=== PATIENT | female | born 1940 | race Caucasian/White ===

== ENCOUNTER → 2016-11-17 | Outpatient (CLI) | payer MEDICARE, OTHER ==
[~2016-11-17] MED LIST: FURO20TA2 PO; GARL1CAP PO; GLIP5TAB15 PO; KRIL1CAP4 PO; LISI-542 PO; OCUVTAB PO; OSTETAB3 PO; SIMV20TA2 PO; VITA20008 PO
--- NOTE | 2016-11-17 14:16 | REPMRS ---
Patient History The patient states she has not had a clinical breast exam in over a year. Patient is postmenopausal. Family history of breast cancer in paternal aunt at age 50 or over and colorectal cancer in brother at age 50 or over. Benign excisional biopsy of the right breast, 2001. Digital Woman Screen Mammo: November 17, 2016 - Exam #: [id number] Bilateral CC and MLO view(s) were taken. Technologist: Shanice Garza, Technologist Prior study comparison: September 17, 2014, digital woman screen mammo performed at [facility]. September 10, 2013, digital woman screen mammo performed at [facility]. May 30, 2012, digital woman screen mammo performed at [facility]. FINDINGS: There are scattered fibroglandular densities. There has been no change in the appearance of the mammogram from the prior studies. There is a mild amount of scattered fibroglandular density which is fairly symmetric. There is no interval development of dominant mass, architectural distortion, or clustered microcalcification suggestive of malignancy. ASSESSMENT: BI-RADS/ACR category 1 mammogram. Negative. Recommendation Routine screening mammogram in 1 year (for women over age 40). This mammogram was interpreted with the aid of an FDA-approved computer-aided dectection system. Electronically Signed By: Sahil Michelle MD 11/17/16 [id number]
== END | disposition home or self-care (01) ==
LOC: M WHC 12:47
PROVIDERS: ATTEND Internal Medicine
DX: Z12.31 Encounter for screening mammogram for malignant neoplasm of breast (principal); Z78.0 Asymptomatic menopausal state; Z80.3 Family history of malignant neoplasm of breast

== ENCOUNTER → 2019-01-21 | Outpatient (CLI) | payer MEDICARE, OTHER ==
[~2019-01-21] MED LIST changes: +GARL10004 PO; -GARL1CAP PO; -GLIP5TAB15 PO; +GLIP5TAB20 PO
--- NOTE | 2019-01-21 16:14 | REPMRS ---
Patient History The patient states she has not had a clinical breast exam in over a year. Family history of breast cancer at age 50 or over in paternal aunt, colorectal cancer at age 50 or over in brother. Benign excisional biopsy of the right breast, 2001. Digital Woman Screen Mammo: January 21, 2019 - Exam #: [id number] Bilateral CC and MLO view(s) were taken. Technologist: Alisha Mohan, Technologist Prior study comparison: November 17, 2016, digital woman screen mammo performed at [facility]. September 17, 2014, digital woman screen mammo performed at [facility]. September 10, 2013, digital woman screen mammo performed at [facility]. FINDINGS: There are scattered fibroglandular densities. There has been no change in the appearance of the mammogram from the prior studies. There is a mild amount of scattered fibroglandular density which is fairly symmetric. There is no interval development of dominant mass, architectural distortion, or clustered microcalcification suggestive of malignancy. 3-D tomosynthesis shows no additional findings. Assessment: BI-RADS/ACR category 1 mammogram. Negative Mammogram. Recommendation Routine screening mammogram of both breasts in 1 year (for women over age 40). This patient's Lifetime Breast Cancer RIsk is estimated at 3.5 %. This mammogram was interpreted with the aid of an FDA-approved computer-aided dectection system. Electronically Signed By: Sahil Michelle MD 01/21/19 2165
== END ==
LOC: M WHC 12:47
PROVIDERS: ATTEND Internal Medicine
DX: Z12.31 Encounter for screening mammogram for malignant neoplasm of breast (principal)

== ENCOUNTER → 2019-06-19 | Outpatient (CLI) | payer MEDICARE, OTHER ==
--- NOTE | 2019-06-19 11:57 | REP ---
Clinical: Acute bronchitis . Comparison: 08/03/2014 . Technique: PA and lateral. Findings: The mediastinum and cardiac silhouette are normal. The lung ralph are clear and without acute consolidation, effusion, or pneumothorax. The skeletal structures are intact and normal. Impression: 1. No acute cardiopulmonary process. Electronically Signed by Eduard Cedeno MD 06/19/2019 11:49 A
== END ==
LOC: M WUC 11:37
PROVIDERS: ATTEND Physician Assistant
DX: J20.9 Acute bronchitis, unspecified (principal); R50.9 Fever, unspecified

== ENCOUNTER 2021-02-02 18:11 | Emergency (ER) | payer MEDICARE, OTHER ==
[~2021-02-02 18:11] MED LIST changes: -LISI-542 PO; +LISI-898 PO; -SIMV20TA2 PO; +SIMV20TA22 PO
[2021-02-02] MEDS ORDERED: SITA50TAB (20:06)
[2021-02-02] MEDS ORDERED: OCUVCAP2 PO (20:06)
[2021-02-02] MEDS ORDERED: SEMA3TAB PO (20:06)
[2021-02-02] MEDS ORDERED: MORPHINE 4 MG/ML 1ML VIAL/SYRINGE (J2270) IV ONE (20:25)
--- NOTE | 2021-02-02 21:06 | REPVR ---
PROCEDURE INFORMATION: Exam: CT Thoracic Spine Without Contrast Exam date and time: 02/02/2021 8:07 PM Age: 80 years old Clinical indication: Pain in thoracic spine TECHNIQUE: Imaging protocol: Computed tomography images of the thoracic spine without contrast. Radiation optimization: All CT scans at this facility use at least one of these dose optimization techniques: automated exposure control; mA and/or kV adjustment per patient size (includes targeted exams where dose is matched to clinical indication); or iterative reconstruction. COMPARISON: No relevant prior studies available. FINDINGS: Vertebrae: There is a compression fracture of the L1 vertebral body with compression of the L1 superior endplate. No thoracic vertebral body compression fracture. Normal alignment. There are nondisplaced fractures of the T5, T6, and T7 spinous processes. Discs/Spinal canal/Neural foramina: Mild discogenic and endplate degenerative changes. No spinal stenosis. Soft tissues: Unremarkable. IMPRESSION: 1. L1 compression fracture. See lumbar spine CT report. 2. Nondisplaced fractures of the T5, T6, and T7 spinous processes. 3. No thoracic spine compression fracture or malalignment. Electronically signed by: Mohan Gonzalez On 02/02/2021 21:06:24 PM
--- NOTE | 2021-02-02 21:11 | REPVR ---
PROCEDURE INFORMATION: Exam: CT Lumbar Spine Without Contrast Exam date and time: 02/02/2021 8:07 PM Age: 80 years old Clinical indication: Low back pain TECHNIQUE: Imaging protocol: Computed tomography images of the lumbar spine without contrast. Radiation optimization: All CT scans at this facility use at least one of these dose optimization techniques: automated exposure control; mA and/or kV adjustment per patient size (includes targeted exams where dose is matched to clinical indication); or iterative reconstruction. COMPARISON: No relevant prior studies available. FINDINGS: Vertebrae: There is a compression fracture of the L1 superior endplate with approximately 7 mm of vertebral body height loss. No other compression fracture. Grade 1 anterolisthesis at L3-L4. Otherwise normal alignment. No destructive bone lesions. Discs/Spinal canal/Neural foramina: Small posterior disc bulges at L2-L3 and L3-L4. No significant spinal stenosis. Advanced multilevel facet DJD. Soft tissues: Unremarkable. IMPRESSION: 1. L1 superior endplate compression fracture. 2. No other acute fracture. 3. Degenerate spondylosis as above. Electronically signed by: Mohan Gonzalez On 02/02/2021 21:11:29 PM
[2021-02-02] MEDS ORDERED: PERC5TAB12 PO (21:23)
[2021-02-02] MEDS ORDERED: OXYCODONE/APAP 5MG/325MG(BULK FOR ED) 1 TABLET PO ONE (21:25)
[2021-02-02 22:00] VITALS: BP 153/74
--- NOTE | 2021-02-05 10:13 | ED PDOC ---
Post-Departure Follow-Up radiology report faxed to Alisha Virk MD Feb 05, 2021 10:13
== END 2021-02-02 22:10 | disposition home or self-care (01) ==
LOC: M ED 18:11 → EDBD 18:11 → M ED 22:10
DX: S32.010A Wedge compression fracture of first lumbar vertebra, initial encounter for closed fracture (principal); S22.059A Unspecified fracture of T5-T6 vertebra, initial encounter for closed fracture; S22.069A Unspecified fracture of T7-T8 vertebra, initial encounter for closed fracture; W18.39XA Other fall on same level, initial encounter; Y92.018 Other place in single-family (private) house as the place of occurrence of the external cause; E11.9 Type 2 diabetes mellitus without complications; I12.9 Hypertensive chronic kidney disease with stage 1 through stage 4 chronic kidney disease, or unspecified chronic kidney disease; N18.9 Chronic kidney disease, unspecified; Z79.899 Other long term (current) drug therapy; Z79.84 Long term (current) use of oral hypoglycemic drugs
CPT/HCPCS: 72128; 72131; 96374; 99284; J2270

== ENCOUNTER → 2021-07-06 | Outpatient (CLI) | payer MEDICARE, OTHER ==
[~2021-07-06] MED LIST changes: +OCUVCAP2 PO; +PERC5TAB12 PO; +SEMA3TAB PO; +SITA50TAB
--- NOTE | 2021-07-06 15:13 | REPMRS ---
Patient History The patient states she has not had a clinical breast exam in over a year. Family history of breast cancer at age 50 or over in paternal aunt, colorectal cancer at age 50 or over in brother. Benign excisional biopsy of the right breast, 2001. No breast complaints today Patient signed the MRS sheet 1st covid vaccine 11/30/20-left arm-Moderna 2nd covid vaccine 12/28/20-left arm Priors on PACS Patient Identification Verified Digital Woman Screen Mammo: July 06, 2021 - Exam #: [id number] Bilateral CC and MLO view(s) were taken. Technologist: Francoise Bhatti, Technologist Prior study comparison: January 21, 2019, bilateral digital woman screen mammo performed at [facility]. November 17, 2016, digital woman screen mammo performed at [facility]. FINDINGS: There are scattered fibroglandular densities. Screening. Digital screening (2D) mammography was performed bilaterally in the CC and MLO projections. Additionally, breast tomosynthesis (3D mammography) was performed bilaterally in the CC and MLO projections. Todays exam was compared to the prior exam/exams. By history, the patient has no complaints of a palpable breast abnormality or other significant breast complaints. The Volpara volumetric breast density category is B, there are scattered areas of fibroglandular densities. Thereis a radio-opaque disk marking the location of a mole on the right breast. The breasts are unchanged in size and shape. There are no patricia-soft tissue densities or spiculated masses. There is no internal architectural distortion. There are no suspicious patricia-calcific clusters. Skin thickening or nipple retraction is not present. IMPRESSION: BI-RADS Category 2- Benign Findings. There is no evidence of malignant alteration of the breasts. Followup examination recommended in one year. This mammogram was read with the assistance of [employer],an FDA approved computer aided detection system for mammography. Negative x-ray reports should not delay surgical consultation if a dominant or clinically suspicious mass is present. The lifetime Tyrer-Cuzick score is 2.8% Not all breast cancers can be identified by mammography. Therefore, we recommend that you continue to perform regular breast self-examination and physical examination and then promptly contact your physician of any concerns or changes. Adenosis and dense breasts may obscure an underlying neoplasm. No significant changes when compared with prior studies. Assessment: BI-RADS/ACR category 2 mammogram. Benign Findings. Recommendation Routine screening mammogram of both breasts in 1 year. Electronically Signed By: Armand Montero MD 07/06/21 7011
== END ==
LOC: M WHC 14:09
PROVIDERS: ATTEND Internal Medicine
DX: Z12.31 Encounter for screening mammogram for malignant neoplasm of breast (principal)

== ENCOUNTER → 2021-08-18 | Outpatient (CLI) | payer MEDICARE, OTHER ==
[~2021-08-18] MED LIST changes: +COQ-100C5 PO; +RA K500C PO
== END ==
LOC: M LABSMTC 10:21
PROVIDERS: ATTEND Anesthesiology
DX: Z01.818 Encounter for other preprocedural examination (principal); Z11.52 Encounter for screening for COVID-19

== ENCOUNTER 2021-08-23 06:38 | Day surgery (SDC) | payer MEDICARE, OTHER ==
[~2021-08-23] VITALS: Ht 154.9 cm; Wt 85.7 kg
[~2021-08-23 06:38] MED LIST changes: +NS 1,000 ML IV ONE
--- OUTSIDE RECORDS SUMMARY | 2021-08-23 06:47 | CCD | Continuity of Care Document ---
Author Author Cindy ColetowThi Leonard Organization Unknown Address [address] [place] [address] Phone [phone] Problems Active Problems Provider Date Mixed hyperlipidemia Shaw Ortiz M.D. Onset: 08/01/20 13 Type 2 diabetes mellitus Shaw Ortiz M.D. Onset: 07/15 Benign essential hypertension Shaw Ortiz M.D. Onset: 08/01/2013 Essential hypertension Shaw Ortiz M.D. Onset: 2014 Heart murmur Alisha Vaughn, [facility]- Onset: 01/26/1951 Social History Type Date Description Comments Sex Unknown ETOH Use Denies alcohol use Recreational Drug Use Denies Drug Use Tobacco Use Start: Unknown Patient has never smoked Allergies and adverse reactions Active Allergies Criticality Reaction | Severity Comments Date No Known Drug Allergy Unable to assess criticality 08/01/2013 Medications Active Medications SIG Qnty Indications Ordering Provide r Date Rybelsus 3mg Tablets one p o daily 90tabs Shaw Ortiz M.D. 04/13/2021 Percocet 5-325mg Tablets 1 by mouth every 8 hours as needed for back pain, [id number] 90tabs Shaw Fagan M.D. 02/11/2021 Flonase Allergy Relief 50mcg/Act Suspension 2 sprays each narea every day 15.800ml Ta Ortiz M.D. 04/09/2020 Januvia 50mg Tablets Take One Tablet By Mouth Every Day 90tabs Shaw Ortiz M.D. 12/26/19 20 Simvastatin 40mg Tablets Take One Tablet By Mouth Every Day 90tabs Shaw Ortiz M.D. 02/18 Glipizide ER 5mg Tablets ER 24HR take one tablet by mouth 3 times a day 270tabs Shaw Ortiz M.D. 06/06/2017 Lisinopril 5mg Tablets take one tablet by mouth twice a day 180tabs Shaw Ortiz M.D. 2012 Osteo Bi-Flex Advanced With Joint Shield Tablets as directed Unknown Krill Oil Capsules 1 po qd Unknown Lasix 20mg Tablets 1 b y mouth every day 90tabs Shaw Ortiz M.D. Garlic 500mg Capsules otc 2 tabs by mouth every day Unknown Magnesium 500mg Tablets 1 by mouth every day OTC Unknown Medications Administered in Office Medication SIG Qnty Indications Ordering Provider Date Injection (SC)/(Im) Injection Shaw Ortiz M.D. 08/01/2013 Immunizations CPT Code Status Date Vaccine Lot # [id number] Given 07/20/2020 Influenza Virus Vaccine, Quadrivalent, Slit Virus, Im Use 3Y & Up [id number] 06870 Given 09/08/2019 Influenza Virus Vaccine, Quadrivalent, Slit Virus, Im Use 3Y & Up [id number] 29471 Given 08/13/2018 Influenza Virus Vaccine, Quadrivalent, Slit Virus, Im Use 3Y & Up [id number] 83508 Given 06/19/2017 Influenza Virus Vaccine, Quadrivalent, Slit Virus, Im Use 3Y & Up [id number] 07440 Given 03/13/2017 Pneumococcal Immunization [id number] 29193 Given 08/15/2016 Influenza Virus Vaccine, Quadrivalent, Slit Virus, Im Use 3Y & Up 43397 Given 08/10/2015 Influenza Vaccin e (Fluzone) 3Yrs Of Age Or Older Medicare Plans [id number] 77168 Given 08/10/2015 Prevnar Pneumoco ccal Conjugate Vaccine For Children Under 5Years 61655 Given 08/01/2013 Influenza Vaccin e (Fluzone) 3Yrs Of Age Or Older Medicare Plans 55495 Given 08/01/2013 Influenza Virus Vac. Split Virus Individuals 3 Years And Above [id number] Vital Signs Date Vital Result Comment 04/13/2021 2:12pm BP Systolic 124 mmHg BP Diastolic 80 mmHg Body Temperature 98.0 F Heart Rate 70 /min Respiratory Rate 16 /min Height 62 inches 5'2" Weight 189.00 lb Maynard Body Weight 110 lb BMI (Body Mass Index) 34.6 kg/m2 O2 % BldC Oximetry 96 % 02/25/2021 1:51pm BP Systolic 122 mmHg BP Diastolic 82 mmHg Body Temperature 97.9 F Heart Rate 64 /min Respiratory Rate 12 /min Height 62 inches 5'2" Weight 187.00 lb Maynard Body Weight 110 lb BMI (Body Mass Index) 34.2 kg/m2 O2 % BldC Oximetry 93 % Results Test Acquired Date Facility Test Result H/L Range Note Laboratory test finding 07/25/20[place] [facility] [place] A1c 6.6 % High 4.50-6.20 CBC 07/25/2021 [facility] WBC 6.4 10E3/uL 4.1 - 10.9 1 RBC 3.61 10E6/uL Low 4.20 - 6.30 HGB 12.7 g/dL 12.0 - 18.0 HCT 37.7 % 37.0 - 51.0 MCV 104.4 fL High 80.0 - 97.0 MCH 35.2 pg High 26.0 - 32.0 MCHC 33.7 g/dL 31.0 - 36.0 PLT 209 10E3/uL 140 - 440 RDW-CV 13.0 % 11.5 - 14.5 Lym% 26.3 % 10.0 - 58.5 Neut% 59.5 % 37.0 - 92.0 MXD% 14.2 % 0.1 - 24.0 Lym# 1.7 10E3/uL 0.6 - 4.1 Neut# 3.8 % 2.0 - 7.8 MXD# 0.9 10E3/uL 0.0 - 1.8 MPV 8.3 fL Low 9.0 - 13.0 CMP 07/25/2021 [facility] Glu 173 mg/dL High 70 - 110 BUN 29 mg/dL High 8 - 23 Creat 1.3 mg/dL High 0.5 - 1.0 BUN/Creatinine Ratio 22.7 Calc Na 139 mmol/L 136 - 145 K 4.5 mmol/L 3.5 - 5.1 CL 103.8 mmol/L 98.0 - 107.0 Co2 21.4 mmol/L Low 22.0 - 29.0 CA 9.8 mg/dL 8.6 - 10.2 TP 6.2 g/dL Low 6.6 - 8.7 Alb 4.0 g/dL 3.4 - 4.8 A/G Ratio 1.8 Calc Globulin 2.2 Calc Alp 68.1 U/L 35 - 129 Alt (SGPT) 19 U/L 0 - 41 Ast (Sgot) 19 U/L 0 - 40 Tbili 0.20 mg/dL 0.0 - 1.2 Osmolality-Calculated 287.9 Calc Anion Gap 18 mmol/L eGFR 45 # Calc 2 eGFR Non-Afr. Bulgarian 39 # Calc 3 Lipid Panel 07/25/2021 [facility] Chol 179 mg/dL 0 - 200 Trig 174 mg/dL 40 - 200 HDL 42 mg/dL Low 45 - 65 LDL_C 103 Calc 75 - 129 Cho/HDL Ratio 4.3 Calc Laboratory test finding 04/11/2021 [facility] [place] A1c 6.5 % High 4.50-6.20 CMP 04/11/2021 [facility] Glu 122 mg/dL High 70 - 110 BUN 28 mg/dL High 8 - 23 Creat 1.3 mg/dL High 0.5 - 1.0 BUN/Creatinine Ratio 21.9 CALC Na 140 mmol/L 136 - 145 K 4.4 mmol/L 3.5 - 5.1 CL 103.9 mmol/L 98.0 - 107.0 Co2 26.6 mmol/L 22.0 - 29.0 CA 10.0 mg/dL 8.6 - 10.2 TP 6.6 g/dL 6.6 - 8.7 Alb 4.3 g/dL 3.4 - 4.8 A/G Ratio 1.9 CALC Globulin 2.3 CALC Alp 60.6 U/L 35 - 129 Alt (SGPT) 20 U/L 0 - 41 Ast (Sgot) 19 U/L 0 - 40 Tbili 0.23 mg/dL 0.0 - 1.2 Osmolality-Calculated 286.3 CALC Anion Gap 14 mmol/L eGFR 45 # Calc 4 eGFR Non-Afr. Bulgarian 39 # Calc 5 Lipid Panel 04/11/2021 [facility] Chol 160 mg/dL 0 - 200 Trig 164 mg/dL 40 - 200 HDL 41 mg/dL Low 45 - 65 LDL_C 87 Calc 75 - 129 Cho/HDL Ratio 3.9 Calc CBC 04/11/2021 [facility] WBC 6.1 10E3/uL 4.1 - 10.9 RBC 3.76 10E6/uL Low 4.20 - 6.30 HGB 13.0 g/dL 12.0 - 18.0 HCT 39.0 % 37.0 - 51.0 MCV 103.7 fL High 80.0 - 97.0 MCH 34.6 pg High 26.0 - 32.0 MCHC 33.3 g/dL 31.0 - 36.0 PLT 198 10E3/uL 140 - 440 RDW-CV 13.0 % 11.5 - 14.5 Lym% 28.3 % 10.0 - 58.5 Neut% 55.9 % 37.0 - 92.0 MXD% 15.8 % 0.1 - 24.0 Lym# 1.7 10E3/uL 0.6 - 4.1 Neut# 3.4 % 2.0 - 7.8 MXD# 1.0 10E3/uL 0.0 - 1.8 MPV 8.9 fL Low 9.0 - 13.0 1 NORMAL RANGES Age WBC RBC HGB HCT MCV PLT Adult M 4.1-10.9 4.20-6.30 12.0-18.0 37.0-51.0 80-97 140-440 Adult F 4.1-10.9 4.04-5.48 12.0-18.0 37.0-51.0 80-97 140-440 0 -1 Yr 5.0-20.0 3.9-5.9 15-18 MV: 44 MV: 91 MV: 277 2-9 Yr. 6.0-17.0 3.8-5.4 11-13 MV: 37 MV: 78 MV: 300 10 Yrs. 5.0-13.0 3.8-5.4 12-15 MV: 39 MV: 80 MV: 250 NOTE: * FOR ADULT BLACK MALES AND FEMALES, NORMAL WBC IS 2.9-7.7 K/ML * FOR ADULT BLACK MALES AND FEMALES, NORMAL RBC,HGB, AND HCT IS 5% LESS SOURCE FOR DATA: [employer] 1800 OPERATION MANUAL( AUTOMATED BLOOD COUNTS AND DIFF.) APPENDIX B-3 CHRONIC KIDNEY DISEASE STAGING PER NKF: MALE GFR INTERPRETATION: 20-49 YRS: >60 mL/min Normal 50-59 YRS: >56 mL/min Normal 60-69 YRS: >49 mL/min Normal 70-79 YRS: >42 mL/min Normal 80 and above >35 mL/min Normal FEMALE GRF INTERPRETATION: 20-39 YRS: >60 mL/min Normal 40-49 YRS: >58 mL/min Normal 50-59 YRS: >51 mL/min Normal 60-69 YRS: >45 mL/min Normal 70-79 YRS: >39 mL/min Normal 80 and above >32 mL/min NormalCLASSIFICATION CHOLESTEROL FOR ADULTS CHILDREN/ADOLESCENTS* DESIRABLE: <200 MG/DL <170 MG/DL BORDER-LINE HIGH RISK: 200-239 MG/DL 170-199 MG/DL HIGH RISK: >240 MG/DL >200 MG/DL CLASS. FOR PRIMARY LDL CHOL PREVENTION: LDL CHOL-CHILD/ADOLESCENTS* DESIRABLE: <130 MG/DL <110 MG/DL BORDERLINE-HIGH RISK: 130-159 MG/DL 110-129 MG/DL HIGH RISK: >160 MG/DL >130 MG/DL *CHILDREN AND ADOLESCENTS REPRESENTS INDIVIDUALA AGED 2-19 YEARS EXCLUSIVE. 2 CKD-EPI 3 CKD-EPI 4 CKD-EPI 5 CKD-EPI Procedures Date Code Description Status 07/06/2021 [id number] Mammogram Completed 04/13/2021 85690 Office/Outpatient Established Mo d MDM 30-39 Min Completed 02/25/2021 71922 Office/Outpatient Established Lo w MDM 20-29 Min Completed 02/11/2021 67224 Office/Outpatient Established Mo d MDM 30-39 Min Completed 01/21/2019 [id number] Mammogram Completed 11/17/2016 [id number] Mammogram Completed Medical Devices Description No Information Available Encounters Type Date Location Provider Dx Diagnosis Office Visit 04/13/2021 1:45p [place] [facility] Shaw Ortiz M. D. E11.9 Type 2 diabetes mellitus without complications E78.2 Mixed hyperlipidemia I10 Essential (primary) hyperten hanna S32.000D Wedge comprsn fx unsp lum ve rtebra, subs for fx w routn heal Office Visit 02/25/2021 1:45p [facility] Shaw Ortiz M.D. S32.000D Wedge comprsn fx unsp lum vertebra, subs for fx w routn heal Office Visit 02/11/2021 3:00p [facility] Shaw Ortiz M.D. S32.000D Wedge comprsn fx unsp lum vertebra, subs for fx w routn heal Assessments Date Code Description Provider 07/25/2021 E11.9 Type 2 diabetes mellitus without complications Shaw Ortiz M.D. 07/25/2021 E11.9 Type 2 diabetes mellitus without complications Laboratory [place] Schedule 07/25/2021 E78.2 Mixed hyperlipidemia Ta Ortiz M.D. 07/25/2021 E78.2 Mixed hyperlipidemia Laboratory [place] Schedule 07/25/2021 I10 Essential (primary) hypertension Shaw Ortiz M.D. 07/25/2021 I10 Essential (primary) hypertension Laboratory [place] Schedule 04/13/2021 E11.9 Type 2 diabetes mellitus without complications Shaw Ortiz M.D. 04/13/2021 E78.2 Mixed hyperlipidemia Ta Ortiz M.D. 04/13/2021 I10 Essential (primary) hypertension Shaw Ortiz M.D. 04/13/2021 S32.000D Wedge compression fr acture of unspecified lumbar vertebra, subsequent encounter for fracture with routine healing Shaw Ortiz M.D. 04/11/2021 E11.9 Type 2 diabetes mellitus without complications Shaw Ortiz M.D. 04/11/2021 E11.9 Type 2 diabetes mellitus without complications Laboratory [place] Schedule 04/11/2021 E78.2 Mixed hyperlipidemia Ta Ortiz M.D. 02/25/2021 S32.000D Wedge compression fr acture of unspecified lumbar vertebra, subsequent encounter for fracture with routine healing Shaw Ortiz M.D. 02/11/2021 S32.000D Wedge compression fr acture of unspecified lumbar vertebra, subsequent encounter for fracture with routine healing Shaw Ortiz M.D. Plan of Treatment Future Appointment(s):* 08/01/2021 3:00 pm - Shaw Ortiz M.D. at [place] [facility] Functional Status Description No Information Available Mental Status Description No Information Available Referrals Refer to Dr Reason for Referral Status Appt Date [facility] L1 compression fracture- eval and rx Sent [address] [place] [address] [phone]
--- OUTSIDE RECORDS SUMMARY | 2021-08-23 06:47 | CCD | Continuity of Care Document ---
Author Author Cindy ColetowThi Leonard Organization Unknown Address 3 [facility]. [address] [place] [address] Phone [phone] Problems Active Problems Provider Date Mixed hyperlipidemia Shaw Ortiz M.D. Onset: 08/01/20 13 Type 2 diabetes mellitus Shaw Ortiz M.D. Onset: 07/15 Benign essential hypertension Shaw Ortiz M.D. Onset: 08/01/2013 Essential hypertension Shaw Ortiz M.D. Onset: 2014 Heart murmur Alisha Vaughn, [facility]- Onset: 01/26/1951 Social History Type Date [...] 8 hours as needed for back pain, [id number] 90tabs Shaw Fagan M.D. 02/11/2021 Flonase Allergy [...] CPT Code Status Date Vaccine Lot # [id number] Given 07/20/2020 Influenza Virus Vaccine, Quadrivalent, Slit Virus, Im Use 3Y & Up [id number] 45588 Given 09/08/2019 Influenza Virus Vaccine, Quadrivalent, Slit Virus, Im Use 3Y & Up [id number] 73065 Given 08/13/2018 Influenza Virus Vaccine, Quadrivalent, Slit Virus, Im Use 3Y & Up [id number] 90715 Given 06/19/2017 Influenza Virus Vaccine, Quadrivalent, Slit Virus, Im Use 3Y & Up [id number] 23015 Given 03/13/2017 Pneumococcal Immunization N0 [id number] 20878 Given 08/15/2016 Influenza Virus Vaccine, Quadrivalent, Slit Virus, Im Use 3Y & Up 53877 Given 08/10/2015 Influenza Vaccin e (Fluzone) 3Yrs Of Age Or Older Medicare Plans [id number] 39769 Given 08/10/2015 Prevnar Pneumoco ccal Conjugate Vaccine For Children Under 5Years 41932 Given 08/01/2013 Influenza Vaccin e (Fluzone) 3Yrs Of Age Or Older Medicare Plans 13013 Given 08/01/2013 Influenza Virus Vac. Split Virus Individuals 3 Years And Above [id number] Vital Signs Date Vital Result Comment 04/13/2021 2:12pm BP Systolic 124 mmHg BP Diastolic 80 mmHg Body Temperature 98.0 F Heart Rate 70 /min Respiratory Rate 16 /min Height 62 inches 5'2" Weight 189.00 lb [place] Body Weight 110 lb BMI (Body Mass Index) 34.6 kg/m2 O2 % BldC Oximetry 96 % 02/25/2021 1:51pm BP Systolic 122 mmHg BP Diastolic 82 mmHg Body Temperature 97.9 F Heart Rate 64 /min Respiratory Rate 12 /min Height 62 inches 5'2" Weight 187.00 lb [place] Body Weight 110 lb BMI (Body Mass Index) 34.2 kg/m2 O2 % BldC Oximetry 93 % Results Test Acquired Date Facility Test Result H/L Range Note Laboratory test finding 07/25/2021 [facility] Hemoglobin A1c <pending> % 4.50-6.20 Laboratory test finding 04/11/2021 [facility] Hemoglobin A1c 6.5 % High 4.50-6.20 CMP 04/11/2021 [facility] Glu 122 mg/dL High 70 - 110 1 BUN 28 mg/dL High 8 - 23 [...] Gap 14 mmol/L eGFR 45 # Calc 2 eGFR Non-Afr. Monegasque 39 # Calc 3 Lipid Panel 04/11/2021 [facility] Chol 160 mg/dL [...] HCT IS 5% LESS SOURCE FOR DATA: [employer] 1800 OPERATION MANUAL( AUTOMATED BLOOD COUNTS AND [...] 2-19 YEARS EXCLUSIVE. 2 CKD-EPI 3 CKD-EPI Procedures Date Code Description Status 07/06/2021 [id number] Mammogram Completed 04/13/2021 72917 Office/Outpatient Established Mo d MDM 30-39 Min Completed 02/25/2021 64513 Office/Outpatient Established Lo w MDM 20-29 Min Completed 02/11/2021 60150 Office/Outpatient Established Mo d MDM 30-39 Min Completed 01/25/2021 51676 Office/Outpatient Established Mo d MDM 30-39 Min Completed 01/21/2019 [id number] Mammogram Completed 11/17/2016 [id number] Mammogram Completed Medical Devices Description No Information Available Encounters Type Date Location Provider Dx Diagnosis Office Visit 04/13/2021 1:45p [place] [facility] Shaw Ortiz M. D. E11.9 Type 2 diabetes mellitus without complications E78.2 Mixed hyperlipidemia I10 Essential (primary) hyperten hanna S32.000D Wedge comprsn fx unsp lum ve rtebra, subs for fx w routn heal Office Visit 02/25/2021 1:45p [place] [facility] Shaw Ortiz M.D. S32.000D Wedge comprsn fx unsp lum vertebra, subs for fx w routn heal Office Visit 02/11/2021 3:00p [place] [facility] Shaw Ortiz M.D. S32.000D Wedge comprsn fx unsp lum vertebra, subs for fx w routn heal Office Visit 01/25/2021 2:30p [place] [facility] Shaw Ortiz M. D. E11.9 Type 2 diabetes mellitus without complications E78.2 Mixed hyperlipidemia I10 Essential (primary) hyperten hanna N18.30 Chronic kidney disease, stag e 3 unspecified Assessments Date Code Description Provider 07/25/2021 E11.9 Type 2 diabetes mellitus without complications Laboratory [place] Schedule 04/13/2021 E11.9 Type 2 diabetes mellitus [...] Type 2 diabetes mellitus without complications Laboratory [place] Schedule 04/11/2021 E78.2 Mixed hyperlipidemia Ta Ortiz M.D. 02/25/2021 S32.000D Wedge compression fr acture of unspecified lumbar vertebra, subsequent encounter for fracture with routine healing Shaw Ortiz M.D. 02/11/2021 S32.000D Wedge compression fr acture of unspecified lumbar vertebra, subsequent encounter for fracture with routine healing Shaw Ortiz M.D. 01/25/2021 E11.9 Type 2 diabetes mellitus without complications Shaw Ortiz M.D. 01/25/2021 E78.2 Mixed hyperlipidemia Ta Ortiz M.D. 01/25/2021 I10 Essential (primary) hypertension Shaw Ortiz M.D. 01/25/2021 N18.30 Chronic kidney disease, stage 3 unspecified Shaw Ortiz M.D. Plan of Treatment Future Appointment(s):* 08/01/2021 3:00 pm - Shaw Ortiz M.D. at [facility] Functional Status Description No Information Available Mental Status Description No Information Available Referrals Refer to Dr Reason for Referral Status Appt Date [facility] L1 compression fracture- eval and rx Sent [address] [place] [address] [phone]
--- OUTSIDE RECORDS SUMMARY | 2021-08-23 06:47 | CCD | Continuity of Care Document ---
Author Author hTi ORTIZ M.D. Organization Unknown Address 3 [facility] 3 [place] [address] Phone [phone] Problems Active Problems Provider Date Mixed hyperlipidemia Shaw Ortiz M.D. Onset: 08/01/20 13 Type 2 diabetes mellitus Shaw Ortiz M.D. Onset: 07/15 Benign essential hypertension Shaw Ortiz M.D. Onset: 08/01/2013 Essential hypertension Shaw Ortiz M.D. Onset: 2014 Heart murmur Alisha Vaughn, [facility] Onset: 01/26/1951 Social History Type Date Description [...] 8 hours as needed for back pain, [id number] 90tabs Shaw Fagan M.D. 02/11/2021 Flonase Allergy Relief 50mcg/Act Suspension 2 sprays each narea every day 15.800ml Ta Ortiz M.D. 04/09/2020 Januvia 50mg Tablets Take One Tablet By Mouth Every Day 90tabs Shaw Ortiz M.D. 12/26/19 20 Simvastatin 40mg Tablets take one tablet by mouth every day 90tabs Shaw Ortiz M.D. 02/18 Glipizide ER [...] CPT Code Status Date Vaccine Lot # [id number] Given 08/01/2021 Influenza Virus Vaccine, Quadrivalent, Slit Virus, Im Use 3Y & Up [id number] 03798 Given 07/20/2020 Influenza Virus Vaccine, Quadrivalent, Slit Virus, Im Use 3Y & Up [id number] 32708 Given 09/08/2019 Influenza Virus Vaccine, Quadrivalent, Slit Virus, Im Use 3Y & Up [id number] 02313 Given 08/13/2018 Influenza Virus Vaccine, Quadrivalent, Slit Virus, Im Use 3Y & Up [id number] 45298 Given 06/19/2017 Influenza Virus Vaccine, Quadrivalent, Slit Virus, Im Use 3Y & Up [id number] 44584 Given 03/13/2017 Pneumococcal Immunization N0 90256 68759 Given 08/15/2016 Influenza Virus Vaccine, Quadrivalent, Slit Virus, Im Use 3Y & Up 25478 Given 08/10/2015 Influenza Vaccin e (Fluzone) 3Yrs Of Age Or Older Medicare Plans [id number] 77760 Given 08/10/2015 Prevnar Pneumoco ccal Conjugate Vaccine For Children Under 5Years 44558 Given 08/01/2013 Influenza Vaccin e (Fluzone) 3Yrs Of Age Or Older Medicare Plans 76526 Given 08/01/2013 Influenza Virus Vac. Split Virus Individuals 3 Years And Above [id number] Vital Signs Date Vital Result Comment 08/01/2021 3:01pm BP Systolic 124 mmHg BP Diastolic 68 mmHg Body Temperature 97.5 F Heart Rate 68 /min Respiratory Rate 18 /min Height 62 inches 5'2" Weight 193.00 lb [place] Body Weight 110 lb BMI (Body Mass Index) 35.3 kg/m2 O2 % BldC Oximetry 96 % 04/13/2021 2:12pm BP Systolic 124 mmHg BP Diastolic 80 mmHg Body Temperature 98.0 F Heart Rate 70 /min Respiratory Rate 16 /min Height 62 inches 5'2" Weight 189.00 lb [place] Body Weight 110 lb BMI (Body Mass Index) 34.6 kg/m2 O2 % BldC Oximetry 96 % Results Test Acquired Date Facility Test Result H/L Range Note Coronavirus 2019 Nasopharygeal 08/18/2021 [facility] ([facility]) [phone] Coronavirus 2019 Nasopharygeal ASSAY INFORMATIO <SEE N OTE> 1 Laboratory test finding 07/25/2021 [facility] Hemoglobin A1c 6.6 % High 4.50-6.20 CBC 07/25/2021 [facility] WBC 6.4 10E3/uL 4.1 - 10.9 2 RBC 3.61 10E6/uL Low 4.20 - 6.30 [...] Gap 18 mmol/L eGFR 45 # Calc 3 eGFR Non-Afr. Sudanese 39 # Calc 4 Lipid Panel 07/25/2021 [facility] Chol 179 mg/dL 0 - 200 Trig 174 mg/dL 40 - 200 HDL 42 mg/dL Low 45 - 65 LDL_C 103 Calc 75 - 129 Cho/HDL Ratio 4.3 Calc Laboratory test finding 04/11/2021 [facility] Hemoglobin A1c 6.5 [...] Gap 14 mmol/L eGFR 45 # Calc 5 eGFR Non-Afr. Sudanese 39 # Calc 6 Lipid Panel 04/11/2021 [facility] Chol 160 mg/dL [...] 8.9 fL Low 9.0 - 13.0 1 ASSAY INFORMATION: Real Time RT-PCR NOTE: The COVID-19 assay has been cleared by the U.S. Food and Drug Administration under the Emergency Use Authorization (EUA). [facility] and [facility] are designated as high complexity laboratories by the Clinical Laboratory Improvement Amendments of 1988(CLIA) and are qualified to perform this test. Not Detected 2 NORMAL RANGES Age WBC RBC HGB HCT [...] HCT IS 5% LESS SOURCE FOR DATA: [employer] 1800 OPERATION MANUAL( AUTOMATED BLOOD COUNTS AND [...] ADOLESCENTS REPRESENTS INDIVIDUALA AGED 2-19 YEARS EXCLUSIVE. 3 CKD-EPI 4 CKD-EPI 5 CKD-EPI 6 CKD-EPI Procedures Date Code Description Status 08/01/2021 29238 Office/Outpatient Established Mo d MDM 30-39 Min Completed 07/06/2021 [id number] Mammogram Completed 04/13/2021 00744 Office/Outpatient Established Mo d MDM 30-39 Min Completed 02/25/2021 50039 Office/Outpatient Established Lo w MDM 20-29 Min Completed 01/21/2019 [id number] Mammogram Completed 11/17/2016 [id number] Mammogram Completed Medical Devices Description No Information Available Encounters Type Date Location Provider Dx Diagnosis Office Visit 08/01/2021 3:00p [place] [facility] Shaw Ortiz M. D. E11.9 Type 2 diabetes mellitus without complications E78.2 Mixed hyperlipidemia I10 Essential (primary) hyperten hanna Z23 Encounter for immunization Office Visit 04/13/2021 1:45p [place] [facility] Shaw Ortiz M. D. E11.9 Type 2 diabetes mellitus without complications E78.2 Mixed hyperlipidemia I10 Essential (primary) hyperten hanna S32.000D Wedge comprsn fx unsp lum ve rtebra, subs for fx w routn heal Office Visit 02/25/2021 1:45p [place] [facility] Shaw Ortiz M.D. S32.000D Wedge comprsn fx unsp lum vertebra, subs for fx w routn heal Assessments Date Code Description Provider 08/01/2021 E11.9 Type 2 diabetes mellitus without complications Shaw Ortiz M.D. 08/01/2021 E78.2 Mixed hyperlipidemia Ta Ortiz M.D. 08/01/2021 I10 Essential (primary) hypertension Shaw Ortiz M.D. 08/01/2021 Z23 Encounter for immunization Jeremy Shaw keane M.D. 07/25/2021 E11.9 Type 2 diabetes mellitus without complications Shaw Ortiz M.D. 07/25/2021 E11.9 Type 2 diabetes mellitus without complications Laboratory [place] Schedule 07/25/2021 E78.2 Mixed hyperlipidemia Ta Ortiz M.D. 07/25/2021 E78.2 Mixed hyperlipidemia Laboratory [place] Schedule 07/25/2021 I10 Essential (primary) hypertension Shaw Ortiz M.D. 07/25/2021 I10 Essential (primary) hypertension Laboratory [place] Schedule 04/13/2021 E11.9 Type 2 diabetes mellitus [...] Type 2 diabetes mellitus without complications Laboratory [place] Schedule 04/11/2021 E78.2 Mixed hyperlipidemia Ta Ortiz M.D. 02/25/2021 S32.000D Wedge compression fr acture of unspecified lumbar vertebra, subsequent encounter for fracture with routine healing Shaw Ortiz M.D. Plan of Treatment Future Appointment(s):* 01/30/2022 11:15 am - Shaw Ortiz M.D. at [facility] * 01/17/2022 11:00 am - [facility] [place] Schedule at [facility] Functional Status Description No Information Available Mental Status Description No Information Available Referrals Description No Information Available
--- OUTSIDE RECORDS SUMMARY | 2021-08-23 06:47 | CCD | Continuity of Care Document ---
Author Author Cindy ColetowThi Leonard Organization Unknown Address 3 [facility] [place] [address] Phone [phone] Problems Active Problems Provider Date Mixed hyperlipidemia Shaw Ortiz M.D. Onset: 08/01/20 13 Type 2 diabetes mellitus Shaw Ortiz M.D. Onset: 07/15 Benign essential hypertension Shaw Ortiz M.D. Onset: 08/01/2013 Essential hypertension Shaw Ortiz M.D. Onset: 2014 Heart murmur Alisha Vaughn, [facility]- Onset: 01/26/1951 Social History Type Date [...] 8 hours as needed for back pain, [id number] 90tabs Shaw Fagan M.D. 02/11/2021 Flonase Allergy [...] CPT Code Status Date Vaccine Lot # [id number] Given 07/20/2020 Influenza Virus Vaccine, Quadrivalent, Slit Virus, Im Use 3Y & Up [id number] 11514 Given 09/08/2019 Influenza Virus Vaccine, Quadrivalent, Slit Virus, Im Use 3Y & Up [id number] 01148 Given 08/13/2018 Influenza Virus Vaccine, Quadrivalent, Slit Virus, Im Use 3Y & Up [id number] 93533 Given 06/19/2017 Influenza Virus Vaccine, Quadrivalent, Slit Virus, Im Use 3Y & Up [id number] 30208 Given 03/13/2017 Pneumococcal Immunization N0 92180 96143 Given 08/15/2016 Influenza Virus Vaccine, Quadrivalent, Slit Virus, Im Use 3Y & Up 07817 Given 08/10/2015 Influenza Vaccin e (Fluzone) 3Yrs Of Age Or Older Medicare Plans [id number] 54216 Given 08/10/2015 Prevnar Pneumoco ccal Conjugate Vaccine For Children Under 5Years 93786 Given 08/01/2013 Influenza Vaccin e (Fluzone) 3Yrs Of Age Or Older Medicare Plans 37219 Given 08/01/2013 Influenza Virus Vac. Split Virus Individuals 3 Years And Above [id number] Vital Signs Date Vital Result Comment 04/13/2021 2:12pm BP Systolic 124 mmHg BP Diastolic 80 mmHg Body Temperature 98.0 F Heart Rate 70 /min Respiratory Rate 16 /min Height 62 inches 5'2" Weight 189.00 lb [place] Body Weight 110 lb BMI (Body Mass Index) 34.6 kg/m2 O2 % BldC Oximetry 96 % 02/25/2021 1:51pm BP Systolic 122 mmHg BP Diastolic 82 mmHg Body Temperature 97.9 F Heart Rate 64 /min Respiratory Rate 12 /min Height 62 inches 5'2" Weight 187.00 lb [place] Body Weight 110 lb BMI (Body Mass Index) 34.2 kg/m2 O2 % BldC Oximetry 93 % Results Test Acquired Date Facility Test Result H/L Range Note Laboratory test finding 07/25/2021 [facility] Hemoglobin A1c 6.6 % High 4.50-6.20 CBC [...] eGFR 45 # Calc 2 eGFR Non-Afr. Finnish 39 # Calc 3 Lipid Panel 07/25/2021 [facility] Chol 179 mg/dL 0 - 200 Trig 174 mg/dL 40 - 200 HDL 42 mg/dL Low 45 - 65 LDL_C 103 Calc 75 - 129 Cho/HDL Ratio 4.3 Calc Laboratory test finding 04/11/2021 [facility] Hemoglobin A1c 6.5 % High 4.50-6.20 CMP [...] eGFR 45 # Calc 4 eGFR Non-Afr. Finnish 39 # Calc 5 Lipid Panel 04/11/2021 [...] HCT IS 5% LESS SOURCE FOR DATA: [employer] 1800 OPERATION MANUAL( AUTOMATED BLOOD COUNTS AND [...] CKD-EPI Procedures Date Code Description Status 07/06/2021 [id number] Mammogram Completed 04/13/2021 79248 Office/Outpatient Established Mo d MDM 30-39 Min Completed 02/25/2021 94045 Office/Outpatient Established Lo w MDM 20-29 Min Completed 02/11/2021 68761 Office/Outpatient Established Mo d MDM 30-39 Min Completed 01/25/2021 20116 Office/Outpatient Established Mo d MDM 30-39 Min Completed 01/21/2019 [id number] Mammogram Completed 11/17/2016 [id number] Mammogram Completed Medical Devices Description No Information Available Encounters Type Date Location Provider Dx Diagnosis Office Visit 04/13/2021 1:45p [place] [facility] Shaw Ortiz M. D. E11.9 Type 2 diabetes mellitus without complications E78.2 Mixed hyperlipidemia I10 Essential (primary) hyperten hanna S32.000D Wedge comprsn fx unsp lum ve rtebra, subs for fx w routn heal Office Visit 02/25/2021 1:45p [place] [facility] Shaw Ortiz M.D. S32.000D Wedge comprsn fx unsp lum vertebra, subs for fx w routn heal Office Visit 02/11/2021 3:00p [place] [facility] Shaw Ortiz M.D. S32.000D Wedge comprsn fx unsp lum vertebra, subs for fx w routn heal Office Visit 01/25/2021 2:30p [place] [facility] Shaw Ortiz M. D. E11.9 Type 2 diabetes mellitus without complications E78.2 Mixed hyperlipidemia I10 Essential (primary) hyperten hanna N18.30 Chronic kidney disease, stag e 3 unspecified Assessments Date Code Description Provider 07/25/2021 E11.9 Type 2 diabetes mellitus without complications Laboratory [place] Schedule 04/13/2021 E11.9 Type 2 diabetes mellitus [...] Type 2 diabetes mellitus without complications Laboratory [place] Schedule 04/11/2021 E78.2 Mixed hyperlipidemia Ta Ortiz [...] 3:00 pm - Shaw Ortiz M.D. at [place] [facility] Functional Status Description No Information Available Mental Status Description No Information Available Referrals Refer to Dr Reason for Referral Status Appt Date [facility] L1 compression fracture- eval and rx Sent [address] [address] [phone]
--- OUTSIDE RECORDS SUMMARY | 2021-08-23 06:47 | CCD | Continuity of Care Document ---
Author Author Thi AMANDA M.D. Organization Unknown Address 3 [facility] 3 [place] [address] Phone [phone] Problems Active Problems Provider Date Mixed hyperlipidemia Shaw Amanda M.D. Onset: 08/01/20 13 Type 2 diabetes mellitus Shaw Amanda M.D. Onset: 07/15 Benign essential hypertension Shaw Amanda M.D. Onset: 08/01/2013 Essential hypertension Shaw Amanda M.D. Onset: 2014 Heart murmur Alisha Vaughn, [facility]- Onset: 01/26/1951 Social History Type Date [...] Tablets one p o daily 90tabs Shaw Amanda M.D. 04/13/2021 Percocet 5-325mg Tablets 1 by mouth every 8 hours as needed for back pain, [id number] 90tabs Shaw Fagan M.D. 02/11/2021 Flonase Allergy Relief 50mcg/Act Suspension 2 sprays each narea every day 15.800ml Ta Amanda M.D. 04/09/2020 Januvia 50mg Tablets Take One Tablet By Mouth Every Day 90tabs Shaw Amanda M.D. 12/26/19 20 Simvastatin 40mg Tablets take one tablet by mouth every day 90tabs Shaw Amanda M.D. 02/18 Glipizide ER 5mg Tablets ER 24HR take one tablet by mouth 3 times a day 270tabs Shaw Amanda M.D. 06/06/2017 Lisinopril 5mg Tablets take one tablet by mouth twice a day 180tabs Shaw Amanda M.D. 2012 Osteo Bi-Flex Advanced With Joint Shield Tablets as directed Unknown Krill Oil Capsules 1 po qd Unknown Lasix 20mg Tablets 1 b y mouth every day 90tabs Shaw Amanda M.D. Garlic 500mg Capsules otc 2 tabs by mouth every day Unknown Magnesium 500mg Tablets 1 by mouth every day OTC Unknown Medications Administered in Office Medication SIG Qnty Indications Ordering Provider Date Injection (SC)/(Im) Injection Shaw Amanda M.D. 08/01/2013 Immunizations CPT Code Status Date Vaccine Lot # 77860 Given 07/20/2020 Influenza Virus Vaccine, Quadrivalent, Slit Virus, Im Use 3Y & Up [id number] 29895 Given 09/08/2019 Influenza Virus Vaccine, Quadrivalent, Slit Virus, Im Use 3Y & Up [id number] 21228 Given 08/13/2018 Influenza Virus Vaccine, Quadrivalent, Slit Virus, Im Use 3Y & Up [id number] 81587 Given 06/19/2017 Influenza Virus Vaccine, Quadrivalent, Slit Virus, Im Use 3Y & Up [id number] 08230 Given 03/13/2017 Pneumococcal Immunization N0 57967 16394 Given 08/15/2016 Influenza Virus Vaccine, Quadrivalent, Slit Virus, Im Use 3Y & Up 19880 Given 08/10/2015 Influenza Vaccin e (Fluzone) 3Yrs Of Age Or Older Medicare Plans [id number] 88799 Given 08/10/2015 Prevnar Pneumoco ccal Conjugate Vaccine For Children Under 5Years 53234 Given 08/01/2013 Influenza Vaccin e (Fluzone) 3Yrs Of Age Or Older Medicare Plans 10691 Given 08/01/2013 Influenza Virus Vac. Split Virus Individuals 3 Years And Above [id number] Vital Signs Date Vital Result Comment 08/01/2021 3:01pm BP Systolic 124 mmHg BP Diastolic 68 mmHg Body Temperature 97.5 F Heart Rate 68 /min Respiratory Rate 18 /min Height 62 inches 5'2" Weight 193.00 lb [place] Body Weight 110 lb BMI (Body Mass Index) 35.3 kg/m2 O2 % BldC Oximetry 96 % 04/13/2021 2:12pm BP Systolic 124 mmHg BP Diastolic 80 mmHg Body Temperature 98.0 F Heart Rate 70 /min Respiratory Rate 16 /min Height 62 inches 5'2" Weight 189.00 lb [place] Body Weight 110 lb BMI (Body Mass Index) 34.6 kg/m2 O2 % BldC Oximetry 96 % Results Test Acquired Date Facility Test Result H/L Range Note Laboratory test finding 07/25/2021 [facility] Hemoglobin A1c 6.6 % High 4.50-6.20 CBC [...] eGFR 45 # Calc 2 eGFR Non-Afr. [place]orese 39 # Calc 3 Lipid Panel 07/25/2021 [facility] Chol 179 mg/dL 0 - 200 Trig 174 mg/dL 40 - 200 HDL 42 mg/dL Low 45 - 65 LDL_C 103 Calc 75 - 129 Cho/HDL Ratio 4.3 Calc Laboratory test finding 04/11/2021 [facility] Hemoglobin A1c 6.5 % High 4.50-6.20 CMP [...] eGFR 45 # Calc 4 eGFR Non-Afr. [place]orese 39 # Calc 5 Lipid Panel 04/11/2021 [...] HCT IS 5% LESS SOURCE FOR DATA: [employer] 1800 OPERATION MANUAL( AUTOMATED BLOOD COUNTS AND [...] 5 CKD-EPI Procedures Date Code Description Status 08/01/2021 28037 Office/Outpatient Established Mo d MDM 30-39 Min Completed 07/06/2021 [id number] Mammogram Completed 04/13/2021 55499 Office/Outpatient Established Mo d MDM 30-39 Min Completed 02/25/2021 32799 Office/Outpatient Established Lo w MDM 20-29 Min Completed 02/11/2021 68057 Office/Outpatient Established Mo d MDM 30-39 Min Completed 01/21/2019 [id number] Mammogram Completed 11/17/2016 [id number] Mammogram Completed Medical Devices Description No Information Available Encounters Type Date Location Provider Dx Diagnosis Office Visit 08/01/2021 3:00p [place] [facility] Shaw Amanda M. D. E11.9 Type 2 diabetes mellitus without complications E78.2 Mixed hyperlipidemia I10 Essential (primary) hyperten hanna Office Visit 04/13/2021 1:45p [place] [facility] Shaw Amanda M. D. E11.9 Type 2 diabetes mellitus without complications E78.2 Mixed hyperlipidemia I10 Essential (primary) hyperten hanna S32.000D Wedge comprsn fx unsp lum ve rtebra, subs for fx w routn heal Office Visit 02/25/2021 1:45p [place] [facility] Shaw Amanda M.D. S32.000D Wedge comprsn fx unsp lum vertebra, subs for fx w routn heal Office Visit 02/11/2021 3:00p [place] [facility] Shaw Amanda M.D. S32.000D Wedge comprsn fx unsp lum vertebra, subs for fx w routn heal Assessments Date Code Description Provider 08/01/2021 E11.9 Type 2 diabetes mellitus without complications Shaw Amanda M.D. 08/01/2021 E78.2 Mixed hyperlipidemia Ta Amanda M.D. 08/01/2021 I10 Essential (primary) hypertension Shaw Amanda M.D. 07/25/2021 E11.9 Type 2 diabetes mellitus without complications Shaw Amanda M.D. 07/25/2021 E11.9 Type 2 diabetes mellitus without complications Laboratory [place] Schedule 07/25/2021 E78.2 Mixed hyperlipidemia Ta Amanda M.D. 07/25/2021 E78.2 Mixed hyperlipidemia Laboratory [place] Schedule 07/25/2021 I10 Essential (primary) hypertension Shaw Amanda M.D. 07/25/2021 I10 Essential (primary) hypertension Laboratory [place] Schedule 04/13/2021 E11.9 Type 2 diabetes mellitus without complications Shaw Amanda M.D. 04/13/2021 E78.2 Mixed hyperlipidemia Ta Amanda M.D. 04/13/2021 I10 Essential (primary) hypertension Shaw Amanda M.D. 04/13/2021 S32.000D Wedge compression fr acture of unspecified lumbar vertebra, subsequent encounter for fracture with routine healing Shaw Amanda M.D. 04/11/2021 E11.9 Type 2 diabetes mellitus without complications Shaw Amanda M.D. 04/11/2021 E11.9 Type 2 diabetes mellitus without complications Laboratory [place] Schedule 04/11/2021 E78.2 Mixed hyperlipidemia Ta Amanda M.D. 02/25/2021 S32.000D Wedge compression fr acture of unspecified lumbar vertebra, subsequent encounter for fracture with routine healing Shaw Amanda M.D. 02/11/2021 S32.000D Wedge compression fr acture of unspecified lumbar vertebra, subsequent encounter for fracture with routine healing Shaw Amanda M.D. Plan of Treatment No Information Available Functional Status Description No Information Available Mental Status Description No Information Available Referrals Refer to Reason for Referral Status Appt Date [facility] L1 compression fracture- eval and rx Sent [address] [place] [address] [phone]
--- OUTSIDE RECORDS SUMMARY | 2021-08-23 06:47 | CCD | Continuity of Care Document ---
Author Author Thi AMANDA M.D. Organization Unknown Address [address] [facility] [address] [place] [address] Phone [phone] Problems Active Problems Provider Date Mixed hyperlipidemia Shaw Amanda M.D. Onset: 08/01/20 13 Type 2 diabetes mellitus Shaw Amanda M.D. Onset: 07/15 Benign essential hypertension Shaw Amanda M.D. Onset: 08/01/2013 Essential hypertension Shaw Amanda M.D. Onset: 2014 Heart murmur Alisha Vaughn, [facility]- Onset: 01/26/1951 Social History Type Date Description [...] 8 hours as needed for back pain, [id number] 90tabs Shaw Fagan M.D. 02/11/2021 Flonase Allergy [...] CPT Code Status Date Vaccine Lot # [id number] Given 08/01/2021 Influenza Virus Vaccine, Quadrivalent, Slit Virus, Im Use 3Y & Up [id number] 59636 Given 07/20/2020 Influenza Virus Vaccine, Quadrivalent, Slit Virus, Im Use 3Y & Up [id number] 48278 Given 09/08/2019 Influenza Virus Vaccine, Quadrivalent, Slit Virus, Im Use 3Y & Up [id number] 96448 Given 08/13/2018 Influenza Virus Vaccine, Quadrivalent, Slit Virus, Im Use 3Y & Up [id number] 11404 Given 06/19/2017 Influenza Virus Vaccine, Quadrivalent, Slit Virus, Im Use 3Y & Up [id number] 69058 Given 03/13/2017 Pneumococcal Immunization [id number] 91629 Given 08/15/2016 Influenza Virus Vaccine, Quadrivalent, Slit Virus, Im Use 3Y & Up 93765 Given 08/10/2015 Influenza Vaccin e (Fluzone) 3Yrs Of Age Or Older Medicare Plans [id number] 78213 Given 08/10/2015 Prevnar Pneumoco ccal Conjugate Vaccine For Children Under 5Years 36937 Given 08/01/2013 Influenza Vaccin e (Fluzone) 3Yrs Of Age Or Older Medicare Plans 06607 Given 08/01/2013 Influenza Virus Vac. Split Virus Individuals 3 Years And Above [id number] Vital Signs Date Vital Result Comment 08/01/2021 3:01pm BP Systolic 124 mmHg BP Diastolic 68 mmHg Body Temperature 97.5 F Heart Rate 68 /min Respiratory Rate 18 /min Height 62 inches 5'2" Weight 193.00 lb [place] Body Weight 110 lb BMI (Body Mass Index) 35.3 kg/m2 O2 % BldC Oximetry 96 % 04/13/2021 2:12pm BP Systolic 124 mmHg BP Diastolic 80 mmHg Body Temperature 98.0 F Heart Rate 70 /min Respiratory Rate 16 /min Height 62 inches 5'2" Weight 189.00 lb [place] Body Weight 110 lb BMI (Body Mass Index) 34.6 kg/m2 O2 % BldC Oximetry 96 % Results Test Acquired Date Facility Test Result H/L Range Note Laboratory test finding 07/25/2021 [facility] Hemoglobin A1c 6.6 % High 4.50-6.20 [...] eGFR 45 # Calc 2 eGFR Non-Afr. [place] 39 # Calc 3 Lipid Panel 07/25/2021 [facility] Chol 179 mg/dL 0 - 200 Trig 174 mg/dL 40 - 200 HDL 42 mg/dL Low 45 - 65 LDL_C 103 Calc 75 - 129 Cho/HDL Ratio 4.3 Calc Laboratory test finding 04/11/2021 [facility] Hemoglobin A1c 6.5 % High [...] eGFR 45 # Calc 4 eGFR Non-Afr. [place] 39 # Calc 5 Lipid Panel 04/11/2021 [...] HCT IS 5% LESS SOURCE FOR DATA: [employer] 1800 OPERATION MANUAL( AUTOMATED BLOOD COUNTS AND [...] CKD-EPI Procedures Date Code Description Status 08/01/2021 70317 Office/Outpatient Established Mo d MDM 30-39 Min Completed 07/06/2021 [id number] Mammogram Completed 04/13/2021 00991 Office/Outpatient Established Mo d MDM 30-39 Min Completed 02/25/2021 94853 Office/Outpatient Established Lo w MDM 20-29 Min Completed 02/11/2021 71462 Office/Outpatient Established Mo d MDM 30-39 Min Completed 01/21/2019 [id number] Mammogram Completed 11/17/2016 [id number] Mammogram Completed Medical Devices Description No Information Available Encounters Type Date Location Provider Dx Diagnosis Office Visit 08/01/2021 3:00p [place] [facility] Shaw Amanda M. D. E11.9 Type 2 diabetes mellitus without complications E78.2 Mixed hyperlipidemia I10 Essential (primary) hyperten hanna Z23 Encounter for immunization Office Visit 04/13/2021 1:45p [place] [facility] Shaw Amanda M. D. E11.9 Type 2 diabetes mellitus without complications E78.2 Mixed hyperlipidemia I10 Essential (primary) hyperten hanna S32.000D Wedge comprsn fx unsp lum ve rtebra, subs for fx w routn heal Office Visit 02/25/2021 1:45p [place] [facility] Shaw Amanda M.D. S32.000D Wedge comprsn fx unsp lum vertebra, subs for fx w routn heal Office Visit 02/11/2021 3:00p [place] [facility] Shaw Amanda M.D. S32.000D Wedge comprsn fx unsp lum vertebra, subs for fx w routn heal Assessments Date Code Description Provider 08/01/2021 E11.9 Type 2 diabetes mellitus without complications Shaw Amanda M.D. 08/01/2021 E78.2 Mixed hyperlipidemia Ta Amanda M.D. 08/01/2021 I10 Essential (primary) hypertension Shaw Amanda M.D. 08/01/2021 Z23 Encounter for immunization Shaw Fagan M.D. 07/25/2021 E11.9 Type 2 diabetes mellitus without complications Shaw Amanda M.D. 07/25/2021 E11.9 Type 2 diabetes mellitus without complications Laboratory [place] Schedule 07/25/2021 E78.2 Mixed hyperlipidemia Ta Amanda M.D. 07/25/2021 E78.2 Mixed hyperlipidemia Laboratory [place] Schedule 07/25/2021 I10 Essential (primary) hypertension Shaw Amanda M.D. 07/25/2021 I10 Essential (primary) hypertension Laboratory [place] [facility] 04/13/2021 E11.9 Type 2 diabetes mellitus [...] Type 2 diabetes mellitus without complications Laboratory [place] [facility] 04/11/2021 E78.2 Mixed hyperlipidemia Ta Amanda M.D. 02/25/2021 S32.000D Wedge compression fr acture of unspecified lumbar vertebra, subsequent encounter for fracture with routine healing Shaw Amanda M.D. 02/11/2021 S32.000D Wedge compression fr acture of unspecified lumbar vertebra, subsequent encounter for fracture with routine healing Shaw Amanda M.D. Plan of Treatment Future Appointment(s):* 01/30/2022 11:15 am - Shaw Amanda M.D. at [place] [facility] * 01/17/2022 11:00 am - Laboratory [place] Schedule at [place] [facility] Functional Status Description No Information Available Mental Status Description No Information Available Referrals Refer to Dr Reason for Referral Status Appt Date [facility] L1 compression fracture- eval and rx Sent [address] [place] [address] [phone]
--- OUTSIDE RECORDS SUMMARY | 2021-08-23 06:47 | CCD | Continuity of Care Document ---
Author Author Thi [facility] Organization Unknown Address [address], [address] [place] [address] Phone [phone] Problems Active Problems Provider Date Obstructive sleep apnea syndrome Luz Stone, A.N.P. Onset: 01/25/2012 Obesity Luz Stone, A.N.P. Onset: 2011 Body mass index 30+ - obesity Luz Stone, A.N.P. Ons et: 01/25/2012 Social History Type Date Description Comments Sex Unknown ETOH Use Denies alcohol use Tobacco Use Reviewed: 11/05/19 Patient has never smoked Smoking Status Reviewed: 11/17/20 Patient has never smoked Allergies, Adverse Reactions, Alerts Description No Known Drug Allergies Medications Active Medications SIG Qnty Indications Ordering Provide r Date Miralax 17GM/Scoop Powder use as instructed by doctor for bowel prep 510gm Z12.11 Jd Kilpatrick MD 05/05/[address] take 2 tabs by mouth prior to procedure per instructions. 2tabs Z12.11 Jd Kilpatrick MD 05/05/2021 Simvastatin 40mg Tablets 1 by mouth every day 90tabs Unknown Lisinopril 5mg Tablets by mouth daily 180tabs Unknown Glipizide ER 5mg Tablets ER 24HR 1 tab by mouth three times a day Unknown 00 Furosemide 20mg Tablets by mouth every day 30tabs Unknown Ocuvite Tablets 1 by mouth e very day Unknown CPAP +8 [facility] Unknown Co Q 10 200mg Capsules 1 by mouth every day Unknown Magnesium 400mg Tablets 1 by mouth every day Unknown Januvia 50mg Tablets once robert ly Unknown Arthrozene Daily Unknown Mini [place]-3 Burp-Less 540mg Capsu les Daily Unknown Super C With D3 And Zinc Daily Unknown Rybelsus 3mg Tablets Daily Unknown Immunizations CPT Code Status Date Vaccine Lot # [id number] Given 08/16/2012 Influenza Vaccine 3 Years Of Age Or Older (Flulaval) [id number] Given 07/26/2011 Influenza Vaccine 3 Years Of Age Or Older (Flulaval) Vital Signs Date Vital Result Comment 05/05/2021 11:40am BP Systolic 132 mmHg BP Diastolic 82 mmHg Height 61.75 inches 5'1.75" Weight 188.00 lb BMI (Body Mass Index) 34.7 kg/m2 [place] Body Weight 105 lb Weight 85.277 kg BSA (Body Surface Area) 1.86 m2 11/17/2020 2:06pm BP Systolic 122 mmHg BP Diastolic 80 mmHg Heart Rate 66 /min O2 % BldC Oximetry 95 % Body Temperature 97.0 F Height 61.75 inches 5'1.75" Weight 195.00 lb BMI (Body Mass Index) 36.0 kg/m2 [place] Body Weight 105 lb Weight 88.452 kg BSA (Body Surface Area) 1.89 m2 Results Description No Information Available Procedures Description No Information Available Medical Devices Description No Information Available Encounters Description No Information Available Assessments Date Code Description Provider 05/05/2021 Z12.11 Encounter for screening for nery gnant neoplasm of colon JARETH Alexandre 05/05/2021 Z86.010 Personal history of colonic poly ps JARETH Alexandre Plan of Treatment Future Appointment(s):* 11/17/2021 2:15 pm - Rosie Arceo, N.P. at [facility] Pulmonary/Th[facility]acic 05/05/2021 - JARETH Alexandre* Z12.11 Encounter for screening for malignant neoplasm of colon * Z86.010 Personal history of colonic polyps * * New Medication:* Miralax 17 GM/Scoop * Dulcolax 5 mg * New Orders:* Colonoscopy, Ordered: 05/05/21 * Comments:* Will arrange for colonoscopy. Reviewed risks and benefits of the procedure, as well as other options, with the patient. Bowel prep procedure was discussed with patient, as well as risks and side effects associated with the bowel prep. Patient verbalized understanding of all of the above and is in agreement to proceed. Patient will seek medical attention for any acute changes. Will monitor. * Follow up:* As scheduled, sooner if needed. Functional Status Description No Information Available Mental Status Description No Information Available Referrals Description No Information Available
--- OUTSIDE RECORDS SUMMARY | 2021-08-23 06:48 | CCD ---
Author Author [facility] Organization [facility] Address Unknown Phone Unavailable Care Team Providers Care Cna Name Role Phone Nik AMANDA MD Unavailable Unavailable Nik AMANDA MD Unavailable Unavailable Nik AMANDA MD Unavailable Unavailable Nik AMANDA MD Unavailable Unavailable Nik AMANDA MD Unavailable Unavailable Nik AMANDA MD Unavailable Unavailable Nik AMANDA MD Unavailable Unavailable Nik AMANDA MD Unavailable Unavailable Nik AMANDA MD Unavailable Unavailable Nik AMANDA MD Unavailable Unavailable Nik AMANDA MD Unavailable Unavailable Nik AMANDA MD Unavailable Unavailable Nik AMANDA MD Unavailable Unavailable Nik AMANDA MD Unavailable Unavailable Nik AMANDA MD Unavailable Unavailable Nik AMANDA MD Unavailable Unavailable Nik AMANDA MD Unavailable Unavailable Nik AMANDA MD Unavailable Unavailable Nik AMANDA MD Unavailable Unavailable Nik AMANDA MD Unavailable Unavailable Nik AMANDA MD Unavailable Unavailable Nik AMANDA MD Unavailable Unavailable Nik AMANDA MD Unavailable Unavailable Nik AMANDA MD Unavailable Unavailable Nik AMANDA MD Unavailable Unavailable Nik AMANDA MD Unavailable Unavailable Nik AMANDA MD Unavailable Unavailable Nik AMANDA MD Unavailable Unavailable Nik AMANDA MD Unavailable Unavailable Nik AMANDA MD Unavailable Unavailable Nik AMANDA MD Unavailable Unavailable Nik AMANDA MD Unavailable Unavailable Nik AMANDA MD Unavailable Unavailable Nik AMANDA MD Unavailable Unavailable Nik AMANDA MD Unavailable Unavailable Nik AMANDA MD Unavailable Unavailable Nik AMANDA MD Unavailable Unavailable Nik AMANDA MD Unavailable Unavailable Nik AMANDA MD Unavailable Unavailable Nik AMANDA MD Unavailable Unavailable Nik AMANDA MD Unavailable Unavailable Nik AMANDA MD Unavailable Unavailable Nik AMANDA MD Unavailable Unavailable Nik AMANDA MD Unavailable Unavailable Nik AMANDA MD Unavailable Unavailable Nik AMANDA MD Unavailable Unavailable Nik AMANDA MD Unavailable Unavailable Nik AMANDA MD Unavailable Unavailable Nik AMANDA MD Unavailable Unavailable Nik AMANDA MD Unavailable Unavailable Nik AMANDA MD Unavailable Unavailable TREASURE H LIZZ RODRIGEZ Unavailable Unavailable TREASURE H LIZZ RODRIGEZ Unavailable Unavailable Nik AMANDA MD Unavailable Unavailable TREASURE H LIZZ MD Unavailable Unavailable TREASURE H LIZZ MD Unavailable Unavailable TREASURE H LIZZ MD Unavailable Unavailable TREASURE, H LIZZ MD Unavailable Unavailable TREASURE H LIZZ MD Unavailable Unavailable TREASURE H LIZZ MD Unavailable Unavailable TREASURE, H LIZZ MD Unavailable Unavailable TREASURE H LIZZ MD Unavailable Unavailable TREASURE H LIZZ MD Unavailable Unavailable TREASURE H LIZZ MD Unavailable Unavailable TREASURE H LIZZ MD Unavailable Unavailable TREASURE H LIZZ RODRIGEZ Unavailable Unavailable Nik AMANDA MD Unavailable Unavailable Nik AMANDA MD Unavailable Unavailable Nik AMANDA MD Unavailable Unavailable Nik AMANDA MD Unavailable Unavailable Nik AMANDA MD Unavailable Unavailable Nik AMANDA MD Unavailable Unavailable TREASURE H LIZZ MD Unavailable Unavailable Nik AMANDA MD Unavailable Unavailable Nik AMANDA MD Unavailable Unavailable TREASURE H LIZZ MD Unavailable Unavailable MCELHERAN, ANAYELI PA Unavailable Unavailable MCELHERAN, ANAYELI PA Unavailable Unavailable MCELHERAN, ANAYELI PA Unavailable Unavailable MCELHERAN, ANAYELI PA Unavailable Unavailable MCELHERAN, ANAYELI PA Unavailable Unavailable MCELHERAN, ANAYELI PA Unavailable Unavailable MCELHERAN, ANAYELI PA Unavailable Unavailable MCELHERAN, ANAYELI PA Unavailable Unavailable MCELHERAN, ANAYELI PA Unavailable Unavailable MCELHERAN, ANAYELI PA Unavailable Unavailable MCELHERAN, ANAYELI PA Unavailable Unavailable MCELHERAN, ANAYELI PA Unavailable Unavailable MCELHERAN, ANAYELI PA Unavailable Unavailable MCELHERAN, ANAYELI PA Unavailable Unavailable MCELHERAN, ANAYELI PA Unavailable Unavailable MCELHERAN, ANAYELI PA Unavailable Unavailable MCELAN, ANAYELI PA Unavailable Unavailable MCELAN, ANAYELI PA Unavailable Unavailable MCELAN, ANAYELI PA Unavailable Unavailable MCELAN, ANAYELI PA Unavailable Unavailable MCELAN, ANAYELI PA Unavailable Unavailable MCELAN, ANAYELI PA Unavailable Unavailable MCELAN, ANAYELI PA Unavailable Unavailable MCELHERAN, ANAYELI PA Unavailable Unavailable MCELHERAN, ANAYELI PA Unavailable Unavailable MCELHERAN, ANAYELI PA Unavailable Unavailable MCELHERAN, ANAYELI PA Unavailable Unavailable MCELHERAN, ANAYELI PA Unavailable Unavailable MCELHERAN, ANAYELI PA Unavailable Unavailable PICKERAL JR, J AUGUSTA PA-C Unavailable Unavailable PICKERAL JR, J AUGUSTA PA-C Unavailable Unavailable PICKERAL JR, J AUGUSTA PA-C Unavailable Unavailable PICKERAL JR, J AUGUSTA PA-C Unavailable Unavailable PICKERAL JR, J AUGUSTA PA-C Unavailable Unavailable PICKERAL JR, J AUGUSTA PA-C Unavailable Unavailable PICKERAL JR, J AUGUSTA PA-C Unavailable Unavailable PICKERAL JR, J AUGUSTA PA-C Unavailable Unavailable PICKERAL JR, J AUGUSTA PA-C Unavailable Unavailable PICKERAL JR, J AUGUSTA PA-C Unavailable Unavailable PICKERAL JR, J AUGUSTA PA-C Unavailable Unavailable PICKERAL JR, J AUGUSTA PA-C Unavailable Unavailable PICKERAL JR, J AUGUSTA PA-C Unavailable Unavailable PICKERAL JR, J AUGUSTA PA-C Unavailable Unavailable PICKERAL JR, J AUGUSTA PA-C Unavailable Unavailable PICKERAL JR, J AUGUSTA PA-C Unavailable Unavailable PICKERAL JR, J AUGUSTA PA-C Unavailable Unavailable PICKERAL JR, J AUGUSTA PA-C Unavailable Unavailable PICKERAL JR, J AUGUSTA PA-C Unavailable Unavailable PICKERAL JR, J AUGUSTA PA-C Unavailable Unavailable PICKERAL JR, J AUGUSTA PA-C Unavailable Unavailable PICKERAL JR, J AUGUSTA PA-C Unavailable Unavailable PICKERAL JR, J AUGUSTA PA-C Unavailable Unavailable PICKERAL JR, J AUGUSTA PA-C Unavailable Unavailable PICKERAL JR, J AUGUSTA PA-C Unavailable Unavailable PICKERAL JR, J AUGUSTA PA-C Unavailable Unavailable PICKERAL JR, J AUGUSTA PA-C Unavailable Unavailable Jef Skinner MD Unavailable Unavailable Jef Skinner MD Unavailable Unavailable Jef Skinner MD Unavailable Unavailable Jef Skinner MD Unavailable Unavailable Jef Skinner MD Unavailable Unavailable Jef Skinner MD Unavailable Unavailable Jef Skinner MD Unavailable Unavailable Jef Skinner MD Unavailable Unavailable Jef Skinner MD Unavailable Unavailable Jef Skinner MD Unavailable Unavailable Jef Skinnre MD Unavailable Unavailable Jef Skinner MD Unavailable Unavailable Jef Skinner MD Unavailable Unavailable Jef Skinner MD Unavailable Unavailable Jef Skinner MD Unavailable Unavailable Jef Skinner MD Unavailable Unavailable Jef Skinner MD Unavailable Unavailable Jef Skinner MD Unavailable Unavailable Jef Skinner MD Unavailable Unavailable Jef Skinner MD Unavailable Unavailable Jef Skinner MD Unavailable Unavailable Jef Skinner MD Unavailable Unavailable Jef Skinner MD Unavailable Unavailable Jef Skinner MD Unavailable Unavailable Jef Skinner MD Unavailable Unavailable Jef Skinner MD Unavailable Unavailable Skinner, L Yaw RODRIGEZ Unavailable Unavailable Skinner, L Yaw RODRIGEZ Unavailable Unavailable Skinner, L Yaw RODRIGEZ Unavailable Unavailable Skinner, L Yaw RODRIGEZ Unavailable Unavailable Skinner, L Yaw RODRIGEZ Unavailable Unavailable Skinner, L Yaw RODRIGEZ Unavailable Unavailable Skinner, L Yaw RODRIGEZ Unavailable Unavailable Skinner, L Yaw RODRIGEZ Unavailable Unavailable Skinner, L Yaw RODRIGEZ Unavailable Unavailable Skinner, L Yaw RODRIGEZ Unavailable Unavailable Skinner, L Yaw RODRIGEZ Unavailable Unavailable Skinner, L Yaw RODRIGEZ Unavailable Unavailable Skinner, L Yaw RODRIGEZ Unavailable Unavailable Skinner, L Yaw RODRIGEZ Unavailable Unavailable Skinner, L Yaw RODRIGEZ Unavailable Unavailable Skinner, L Yaw RODRIGEZ Unavailable Unavailable Skinner, L Yaw RODRIGEZ Unavailable Unavailable Skinner, L Yaw RODRIGEZ Unavailable Unavailable Skinner, L Yaw RODRIGEZ Unavailable Unavailable Skinner, L Yaw RODRIGEZ Unavailable Unavailable Skinner, L Yaw RODRIGEZ Unavailable Unavailable Skinner, L Yaw RODRIGEZ Unavailable Unavailable Skinner, L Yaw RODRIGEZ Unavailable Unavailable Skinner, L Yaw RODRIGEZ Unavailable Unavailable LAUREN, JUSTYNA CHAVO OB SCRUB TECH-C Unavailable Unavailable LAUREN, JUSTYNA CHAVO OB SCRUB TECH-C Unavailable Unavailable LAUREN, JUSTYNA CHAVO OB SCRUB TECH-C Unavailable Unavailable LAUREN, JUSTYNA CHAVO OB SCRUB TECH-C Unavailable Unavailable LAUREN, JUSTYNA CHAVO OB SCRUB TECH-C Unavailable Unavailable LAUREN, JUSTYNA CHAVO OB SCRUB TECH-C Unavailable Unavailable LAUREN, JUSTYNA CHAVO OB SCRUB TECH-C Unavailable Unavailable LAUREN, JUSTYNA CHAVO OB SCRUB TECH-C Unavailable Unavailable LAUREN, JUSTYNA CHAVO OB SCRUB TECH-C Unavailable Unavailable LAUREN, JUSTYNA CHAVO OB SCRUB TECH-C Unavailable Unavailable LAUREN, JUSTYNA CHAVO OB SCRUB TECH-C Unavailable Unavailable LAUREN, JUSTYNA CHAVO OB SCRUB TECH-C Unavailable Unavailable LAUREN, JUSTYNA CHAVO OB SCRUB TECH-C Unavailable Unavailable LAUREN, JUSTYNA CHAVO OB SCRUB TECH-C Unavailable Unavailable LAUREN, JUSTYNA CHAVO OB SCRUB TECH-C Unavailable Unavailable LAUREN, JUSTYNA CHAVO OB SCRUB TECH-C Unavailable Unavailable LAUREN, JUSTYNA CHAVO OB SCRUB TECH-C Unavailable Unavailable Re-disclosure Warning The records that you are about to access may contain information from federally-assisted alcohol or drug abuse programs. If such information is present, then the following federally mandated warning applies: This information has been disclosed to you from records protected by federal confidentiality rules (42 CFR part 2). The federal rules prohibit you from making any further disclosure of this information unless further disclosure is expressly permitted by the written consent of the person to whom it pertains or as otherwise permitted by 42 CFR part 2. A general authorization for the release of medical or other information is NOT sufficient for this purpose. The Federal rules restrict any use of the information to criminally investigate or prosecute any alcohol or drug abuse patient.The records that you are about to access may contain highly sensitive health information, the redisclosure of which is protected by Article 27-F of the [facility] Public Health law. If you continue you may have access to information: Regarding HIV / AIDS; Provided by facilities licensed or operated by the [facility] Office of Mental Health; or Provided by the [facility] Office for People With Developmental Disabilities. If such information is present, then the following [facility] mandated warning applies: This information has been disclosed to you from confidential records which are protected by state law. State law prohibits you from making any further disclosure of this information without the specific written consent of the person to whom it pertains, or as otherwise permitted by law. Any unauthorized further disclosure in violation of state law may result in a fine or intermediate sentence or both. A general authorization for the release of medical or other information is NOT sufficient authorization for further disc losure. Family History Family Member Name Family Member Gender Family Member Status Date o f Status Description Data Source(s) Unknown Unknown Problem [facility] ([facility] mother Unknown Unknown Problem [facility] ([facility] ) Encounters Encounter Providers Location Date Indications Data Source(s ) Outpatient Attender: LIZZ [place] Office 03:00:00 PM EDT [facility] Office Visit Attender: ANAYELI HOBBS Physical Therapy 05/11/2021 02:15:00 PM EDT [facility] ([facility] Outpatient Attender: AUGUSTA brown 04/23/2021 03:00:00 PM EDT [facility] ([facility] Outpatient Attender: LIZZ [place] [facility] 01:45:00 PM EDT [facility] ([facility] Office Visit Attender: ANAYELI HOBBS Physical Therapy 03/30/2021 01:00:00 PM EDT [facility] ([facility]) Outpatient Attender: LIZZ AMANDA MD [place] [facility] 01:45:00 PM EDT [facility] ([facility] OFFICE OUTPATIENT NEW 30 MINUTES Attender: Yaw Skinner MD Physic al Therapy 02/15/2021 02:00:00 PM EDT [facility] ([facility]) Outpatient Attender: LIZZ AMANDA MD [place] [facility] 03:00:00 PM EDT [facility] ([facility] Outpatient Attender: LIZZ AMANDA MD [place] [facility] 02:30:00 PM EDT [facility] Outpatient Attender: CHAVO Ma/Monica/Parviz/Adriana rinocn 11/17/2020 01:15:00 PM EST [facility] ([facility] Outpatient Attender: LIZZ AMANDA MD [place] [facility] 03/2021 01:30:00 PM EST [facility] ([facility] Outpatient Attender: LIZZ AMANDA MD [place] [facility] 03/2020 02:30:00 PM EDT [facility] Immunizations Vaccine Date Status Description Data Source(s) COVID-19 VACCINE Moderna 08/08/2021 12:00:00 AM EDT completed [facility] Vaccine Series Complete: YESThis Data wa s Submitted to [facility] Via [employer]. New in 2012. IIV4 08/01/2021 03:13:00 PM EDT completed [facility] ([facility] COVID-19 VACCINE Moderna 12/28/2020 12:00:00 AM EDT completed [facility] Vaccine Series Complete: YESThis Data wa s Submitted to [facility] Via [employer]. COVID-19 VACCINE, MRNA-1273, LNP-S (MODERNA)/PF 12/28/2020 1 2:00:00 AM EDT completed [facility] COVID-19 VACCINE Moderna 11/30/2020 12:00:00 AM EST completed [facility] Vaccine Series Complete: NOThis Data was Submitted to [facility] Via [employer]. COVID-19 VACCINE, MRNA-1273, LNP-S (MODERNA)/PF 11/30/2020 1 2:00:00 AM EST completed [facility] New in 2012. IIV4 07/20/2020 03:25:00 PM EDT completed [facility] ([facility] Medications Medication Brand Name Start Date Product Form Dose Route Admi nistrative Instructions Pharmacy Instructions Status Indications Reaction Description Data Source(s) 100 mcg/0.5 mL 08/08/2021 12:00:00 AM EDT suspension 0 INJECT DIRECTED (THIRD DOSE) INJECT DIRECTED (THIRD DOSE) SOLD: 08/08/2021 [facility] 40 mg 08/02/2021 12:00:00 AM EDT tablet 90 TAKE ONE TABLET BY MOUTH EVERY DAY TAKE ONE TABLET BY MOUTH EVERY DAY SOLD: 08/06/2021 [facility] 20 mg 07/26/2021 12:00:00 AM EDT tablet 90 TAKE ONE TABLET BY MOUTH EVERY DAY TAKE ONE TABLET BY MOUTH EVERY DAY SOLD: 07/27/2021 [facility] Bisacodyl 5 MG Delayed Release Oral Tablet [Dulcolax] Dulcol ax 05/05/2021 12:00:00 AM EDT ORAL active M EDENT ([facility], ) 17 gram/dose 05/05/2021 12:00:00 AM EDT powder 510 USE DIRECTED BY DOCTOR FOR BOWEL PREP USE DIRECTED BY DOCTOR FOR BOWEL PREP SOLD: 05/07/2021 [facility] POLYETHYLENE GLYCOL 3350 142 MG/ML Oral Solution [Miralax] M iralax 05/05/2021 12:00:00 AM EDT active M [facility] ([facility], ) 500 mg 04/25/2021 12:00:00 AM EDT tablet 8 TAKE FOUR TABLETS BY MOUTH 1 HOUR PRIOR TO DENTAL PROCEDURE TAKE FOUR TABLETS BY MOUTH 1 HOUR PRIOR TO DENTAL PROCEDURE SOLD: 04/26/2021 [facility] Rubellus 04/23/2021 12:00:00 AM EDT active [facility] ([facility] 3 mg 04/14/2021 12:00:00 AM EDT tablet 90 TAKE ONE TABLET BY MOUTH EVERY DAY TAKE ONE TABLET BY MOUTH EVERY DAY SOLD: 04/16/2021 [facility] 3 mg 04/14/2021 12:00:00 AM EDT tablet 90 TAKE ONE TABLET BY MOUTH EVERY DAY TAKE ONE TABLET BY MOUTH EVERY DAY SOLD: 07/26/2021 [facility] Franciscosus Franciscosus 04/13/2021 12:00:00 AM EDT ORAL activ e [facility] ([facility] 5 mg 04/01/2021 12:00:00 AM EDT tablet extended release 24hr 270 TAKE ONE TABLET BY MOUTH THREE TIMES A DAY TAKE ONE TABLET BY MOUTH THREE TIMES A DAY SOLD: 07/06/2021 [facility] 5 mg 04/01/2021 12:00:00 AM EDT tablet extended release 24hr 270 TAKE ONE TABLET BY MOUTH THREE TIMES A DAY TAKE ONE TABLET BY MOUTH THREE TIMES A DAY SOLD: 04/04/2021 [facility] 5 mg 02/26/2021 12:00:00 AM EDT tablet 180 TAKE ONE TABLET BY MOUTH TWICE A DAY TAKE ONE TABLET BY MOUTH TWICE A DAY SOLD: 03/01/2021 [facility] 50 mg 02/16/2021 12:00:00 AM EDT tablet 18 TAKE ONE TABLET BY MOUTH EVERY 6 HOURS NEEDED FOR PAIN MAXIMUM DAILY DOSE = FOUR TABLETS TAKE ONE TABLET BY MOUTH EVERY 6 HOURS NEEDED FOR PAIN MAXIMUM DAILY DOSE = FOUR TABLETS SOLD: 02/18/2021 [facility] tramadol hydrochloride 50 MG Oral Tablet Tramadol HCL 02/15/2021 12:00:00 AM EDT active [facility] ([facility]) Acetaminophen 325 MG / Oxycodone Hydrochloride 5 MG Or al Tablet [Percocet] Percocet 02/11/2021 12:00:00 AM EDT ORAL active [facility] ([facility] 5-325 mg 02/03/2021 12:00:00 AM EDT tablet 20 TAKE ONE TABLET BY MOUTH EVERY 6 HOURS NEEDED FOR PAIN MAXIMUM DAILY DOSE = FOUR TABLETS TAKE ONE TABLET BY MOUTH EVERY 6 HOURS NEEDED FOR PAIN MAXIMUM DAILY DOSE = FOUR TABLETS SOLD: 02/03/2021 [facility] 40 mg 02/01/2021 12:00:00 AM EDT tablet 90 TAKE ONE TABLET BY MOUTH EVERY DAY TAKE ONE TABLET BY MOUTH EVERY DAY SOLD: 05/27/2021 [facility] 40 mg 02/01/2021 12:00:00 AM EDT tablet 90 TAKE ONE TABLET BY MOUTH EVERY DAY TAKE ONE TABLET BY MOUTH EVERY DAY SOLD: 02/03/2021 [facility] 50 mg 12/18/2020 12:00:00 AM EST tablet 90 TAKE ONE TABLET BY MOUTH EVERY DAY TAKE ONE TABLET BY MOUTH EVERY DAY SOLD: 12/23/2020 [facility] 50 mg 12/18/2020 12:00:00 AM EST tablet 90 TAKE ONE TABLET BY MOUTH EVERY DAY TAKE ONE TABLET BY MOUTH EVERY DAY SOLD: 03/18/2021 [facility] 50 mg 12/18/2020 12:00:00 AM EST tablet 90 TAKE ONE TABLET BY MOUTH EVERY DAY TAKE ONE TABLET BY MOUTH EVERY DAY SOLD: 06/21/2021 [facility] 20 mg 11/27/2020 12:00:00 AM EST tablet 90 TAKE ONE TABLET BY MOUTH EVERY DAY TAKE ONE TABLET BY MOUTH EVERY DAY SOLD: 11/28/2020 [facility] 20 mg 11/27/2020 12:00:00 AM EST tablet 90 TAKE ONE TABLET BY MOUTH EVERY DAY TAKE ONE TABLET BY MOUTH EVERY DAY SOLD: 04/04/2021 [facility] 50 mcg/actuation 10/21/2020 12:00:00 AM EST spray,suspension 16 SPRAY TWO SPRAYS IN EACH NOSTRIL EVERY DAY SPRAY TWO SPRAYS IN EACH NOSTRIL EVERY DAY SOLD: 10/25/2020 [facility] 5 mg 08/11/2020 12:00:00 AM EDT tablet extended release 24hr 270 TAKE ONE TABLET BY MOUTH THREE TIMES A DAY TAKE ONE TABLET BY MOUTH THREE TIMES A DAY SOLD: 08/13/2020 [facility] 5 mg 08/11/2020 12:00:00 AM EDT tablet extended release 24hr 270 TAKE ONE TABLET BY MOUTH THREE TIMES A DAY TAKE ONE TABLET BY MOUTH THREE TIMES A DAY SOLD: 01/02/2021 [facility] 40 mg 07/30/2020 12:00:00 AM EDT tablet 90 TAKE ONE TABLET BY MOUTH EVERY DAY TAKE ONE TABLET BY MOUTH EVERY DAY SOLD: 11/28/2020 [facility] 40 mg 07/30/2020 12:00:00 AM EDT tablet 90 TAKE ONE TABLET BY MOUTH EVERY DAY TAKE ONE TABLET BY MOUTH EVERY DAY SOLD: 08/06/2020 [facility] 20 mg 06/23/2020 12:00:00 AM EDT tablet 90 TAKE ONE TABLET BY MOUTH EVERY DAY TAKE ONE TABLET BY MOUTH EVERY DAY SOLD: 06/24/2020 [facility] 20 mg 06/23/2020 12:00:00 AM EDT tablet 90 TAKE ONE TABLET BY MOUTH EVERY DAY TAKE ONE TABLET BY MOUTH EVERY DAY SOLD: 09/23/2020 [facility] 5 mg 04/07/2020 12:00:00 AM EDT tablet extended release 24hr 180 TAKE ONE TABLET BY MOUTH TWICE A DAY TAKE ONE TABLET BY MOUTH TWICE A DAY SOLD: 07/07/2020 [facility] 5 mg 02/21/2020 12:00:00 AM EDT tablet 180 TAKE ONE TABLET BY MOUTH TWICE A DAY TAKE ONE TABLET BY MOUTH TWICE A DAY SOLD: 11/17/2020 [facility] 5 mg 02/21/2020 12:00:00 AM EDT tablet 180 TAKE ONE TABLET BY MOUTH TWICE A DAY TAKE ONE TABLET BY MOUTH TWICE A DAY SOLD: 08/25/2020 [facility] 500 mg 01/02/2020 12:00:00 AM EDT capsule 8 TAKE FOUR CAPSULES BY MOUTH 1 HOUR PRIOR TO DENTAL PROCEDURE TAKE FOUR CAPSULES BY MOUTH 1 HOUR PRIOR TO DENTAL PROCEDURE SOLD: 07/26/2020 [facility] 50 mg 12/27/2019 12:00:00 AM EDT tablet 90 TAKE ONE TABLET BY MOUTH EVERY DAY TAKE ONE TABLET BY MOUTH EVERY DAY SOLD: 06/24/2020 [facility] 50 mg 12/27/2019 12:00:00 AM EDT tablet 90 TAKE ONE TABLET BY MOUTH EVERY DAY TAKE ONE TABLET BY MOUTH EVERY DAY SOLD: 09/23/2020 [facility] Insurance Providers Payer name Policy type / Coverage type Policy ID Covered libertarian ID Covered libertarian's relationship to cleaning Policy Cleaning Plan Information [id number] [employer] [id number] SP [id number] [employer] [id number] SP [id number] MEDICARE [id number] SP [id number] MEDICARE [id number] SP [id number] B Medicare Natl Gov't Servi Medicare Primary [id number] Self Medicare Natl Gov't Servi Medicare Primary [id number] Self [id number] Medicare Natl Gov't Servi Medicare Primary [id number] Self [id number] [place] Primary [id number] Family Depen dent MEDICARE [id number] SP [id number] B [id number] B [employer] PPO O [id number] S [id number] [facility]/[employer] Medigap Part B [id number] Self [id number] Medicare Part B [facility] Other 0 [id number] S elf 0 Medicare Part B [facility] Other 0 [id number] S elf 0 [employer] Med[employer] Part B [id number] Self [id number] [facility] [id number] SP [id number] MEDICARE C [id number] S [id number] B [employer] Med[employer]ap Part B [id number] Self [employer] Med[employer]ap Part B [id number] Self Problems, Conditions, and Diagnoses Code Display Name Description Problem Type Effective Dates Data Source(s) [id number] Essential hypertension Essential hypertension Problem 02/15/2021 12:00:00 AM EDT [facility] ([facility] Surgeries/Procedures Procedure Description Date Indications Data Source(s) OFFICE OUTPATIENT VISIT 25 MINUTES 08/01/2021 12:00:00 AM EDT [facility] ([facility] Mammogram 07/06/2021 12:00:00 AM EDT M EDENT ([facility] X-Ray Spine Thoracolumbar Ap & Lateral 2 Views 021 12:00:00 AM EDT [facility] ([facility] ) Therapeutic, Prophylactic Or Diagnostic Injection Subq/Im 04/23/2021 12:00:00 AM EDT [facility] OFFICE OUTPATIENT VISIT 15 MINUTES 04/23/2021 12:00:00 AM EDT [facility] ([facility]) OFFICE OUTPATIENT VISIT 25 MINUTES 04/13/2021 12:00:00 AM EDT [facility] ([facility] X-Ray Spine Thoracolumbar Ap & Lateral 2 Views 021 12:00:00 AM EDT [facility] ([facility]) OFFICE OUTPATIENT VISIT 15 MINUTES 02/25/2021 12:00:00 AM EDT [facility] ([facility] CLTX VRT BDY FX W/O MANJ REQ&W/CSTING/BRACING 02/16/20 21 12:00:00 AM EDT [facility] ([facility]) X-Ray Spine Thoracolumbar Ap & Lateral 2 Views 021 12:00:00 AM EDT [facility] ([facility]) OFFICE OUTPATIENT NEW 30 MINUTES 02/15/2021 12:00:00 A M EDT [facility] ([facility]) OFFICE OUTPATIENT VISIT 25 MINUTES 02/11/2021 12:00:00 AM EDT [facility] ([facility] OFFICE OUTPATIENT VISIT 25 MINUTES 01/25/2021 12:00:00 AM EDT [facility] ([facility] OFFICE OUTPATIENT VISIT 15 MINUTES 11/17/2020 12:00:00 AM EST [facility] ([facility], ) OFFICE OUTPATIENT VISIT 25 MINUTES 10/20/2020 12:00:00 AM EST [facility] ([facility] Results ID Date Data Source [id number] 08/18/2021 10:30:00 AM EDT [facility] ([facility] Name Value Range Interpretation Code Description Data Margarita rce(s) Supporting Document(s) Laboratory test finding (navigational concept) Laboratory test result [facility] ([facility] ASSAY INFORMATION: Real Time RT-PCR NOTE: The COVID-19 assay has been cleared by the U.S. Food and Drug Administration under the Emergency Use Authorization (EUA). [facility] and [facility] are designated as high complexity laboratories by the Clinical Laboratory Improvement Amendments of 1988(CLIA) and are qualified to perform this test. Not Detected ID Date Data Source [id number] 08/18/2021 10:30:00 AM EDT [facility] Name Value Range Interpretation Code Description Data Margarita rce(s) Supporting Document(s) SARS-CoV-2 (COVID-19) RNA [Presence] in Respiratory specimen by JUD with probe detection Not Detected [facility] This lab was ordered by [facility] and reported by [facility]. ID Date Data Source [id number] 07/25/2021 09:54:00 AM EDT [facility] ([facility] Name Value Range Interpretation Code Description Data Margarita rce(s) Supporting Document(s) Chol 179 mg/dL 0-200 [facility] ([facility] NORMAL RANGES Age WBC RBC HGB HCT [...] HCT IS 5% LESS SOURCE FOR DATA: nodila DYN 1800 OPERATION MANUAL( AUTOMATED BLOOD COUNTS [...] DESIRABLE: <130 MG/DL <110 MG/DL BORDERLINE-HIGH RISK: 130- 159 MG/DL 110-129 MG/DL HIGH RISK: >160 MG/DL >130 MG/DL *CHILDREN AND ADOLESCENTS REPRESENTS INDIVIDUALA AGED 2-19 YEARS EXCLUSIVE. LDL_C 103 Calc 75-129 [facility] NORMAL RANGES Age WBC RBC HGB HCT [...] HCT IS 5% LESS SOURCE FOR DATA: AeroFS 1800 OPERATION MANUAL( AUTOMATED BLOOD COUNTS AND [...] DESIRABLE: <130 MG/DL <110 MG/DL BORDERLINE-HIGH RISK: 130- 159 MG/DL 110-129 MG/DL HIGH RISK: >160 MG/DL >130 MG/DL *CHILDREN AND ADOLESCENTS REPRESENTS INDIVIDUALA AGED 2-19 YEARS EXCLUSIVE. Trig 174 mg/dL 40-200 [facility] ([facility] NORMAL RANGES Age WBC RBC HGB HCT [...] HCT IS 5% LESS SOURCE FOR DATA: AeroFS 1800 OPERATION MANUAL( AUTOMATED BLOOD COUNTS AND [...] DESIRABLE: <130 MG/DL <110 MG/DL BORDERLINE-HIGH RISK: 130- 159 MG/DL 110-129 MG/DL HIGH RISK: >160 MG/DL >130 MG/DL *CHILDREN AND ADOLESCENTS REPRESENTS INDIVIDUALA AGED 2-19 YEARS EXCLUSIVE. Cholesterol in HDL [Mass/volume] in Serum or Plasma 42 mg/dL 45-65 Below low normal [facility] ([facility] NORMAL RANGES Age WBC RBC HGB HCT [...] HCT IS 5% LESS SOURCE FOR DATA: AeroFS 1800 OPERATION MANUAL( AUTOMATED BLOOD COUNTS AND [...] DESIRABLE: <130 MG/DL <110 MG/DL BORDERLINE-HIGH RISK: 130- 159 MG/DL 110-129 MG/DL HIGH RISK: >160 MG/DL >130 MG/DL *CHILDREN AND ADOLESCENTS REPRESENTS INDIVIDUALA AGED 2-19 YEARS EXCLUSIVE. Cho/HDL Ratio 4.3 Calc [facility] ([facility] NORMAL RANGES Age WBC RBC HGB HCT [...] HCT IS 5% LESS SOURCE FOR DATA: AeroFS 1800 OPERATION MANUAL( AUTOMATED BLOOD COUNTS AND [...] DESIRABLE: <130 MG/DL <110 MG/DL BORDERLINE-HIGH RISK: 130- 159 MG/DL 110-129 MG/DL HIGH RISK: >160 MG/DL >130 MG/DL *CHILDREN AND ADOLESCENTS REPRESENTS INDIVIDUALA AGED 2-19 YEARS EXCLUSIVE. ID Date Data Source [id number] 07/25/2021 09:54:00 AM EDT [facility] ([facility] Name Value Range Interpretation Code Description Data Margarita rce(s) Supporting Document(s) Glu 173 mg/dL 70-110 Above high normal [facility] ([facility] NORMAL RANGES Age WBC RBC HGB HCT [...] HCT IS 5% LESS SOURCE FOR DATA: AeroFS 1800 OPERATION MANUAL( AUTOMATED BLOOD COUNTS AND [...] DESIRABLE: <130 MG/DL <110 MG/DL BORDERLINE-HIGH RISK: 130- 159 MG/DL 110-129 MG/DL HIGH RISK: >160 MG/DL >130 MG/DL *CHILDREN AND ADOLESCENTS REPRESENTS INDIVIDUALA AGED 2-19 YEARS EXCLUSIVE. BUN 29 mg/dL 8-23 Above high normal [facility] ([facility] NORMAL RANGES Age WBC RBC HGB HCT [...] HCT IS 5% LESS SOURCE FOR DATA: nodila DYN 1800 OPERATION MANUAL( AUTOMATED BLOOD COUNTS [...] DESIRABLE: <130 MG/DL <110 MG/DL BORDERLINE-HIGH RISK: 130- 159 MG/DL 110-129 MG/DL HIGH RISK: >160 MG/DL >130 MG/DL *CHILDREN AND ADOLESCENTS REPRESENTS INDIVIDUALA AGED 2-19 YEARS EXCLUSIVE. BUN/Creatinine Ratio 22.7 Calc [facility] ([facility] NORMAL RANGES Age WBC RBC HGB HCT [...] HCT IS 5% LESS SOURCE FOR DATA: AeroFS 1800 OPERATION MANUAL( AUTOMATED BLOOD COUNTS AND [...] DESIRABLE: <130 MG/DL <110 MG/DL BORDERLINE-HIGH RISK: 130- 159 MG/DL 110-129 MG/DL HIGH RISK: >160 MG/DL >130 MG/DL *CHILDREN AND ADOLESCENTS REPRESENTS INDIVIDUALA AGED 2-19 YEARS EXCLUSIVE. Creat 1.3 mg/dL 0.5-1.0 Above high normal [facility] ([facility] NORMAL RANGES Age WBC RBC HGB HCT [...] HCT IS 5% LESS SOURCE FOR DATA: AeroFS 1800 OPERATION MANUAL( AUTOMATED BLOOD COUNTS AND [...] DESIRABLE: <130 MG/DL <110 MG/DL BORDERLINE-HIGH RISK: 130- 159 MG/DL 110-129 MG/DL HIGH RISK: >160 MG/DL >130 MG/DL *CHILDREN AND ADOLESCENTS REPRESENTS INDIVIDUALA AGED 2-19 YEARS EXCLUSIVE. Na 139 mmol/L 136-145 [facility] ([facility] NORMAL RANGES Age WBC RBC HGB HCT [...] HCT IS 5% LESS SOURCE FOR DATA: AeroFS 1800 OPERATION MANUAL( AUTOMATED BLOOD COUNTS AND [...] DESIRABLE: <130 MG/DL <110 MG/DL BORDERLINE-HIGH RISK: 130- 159 MG/DL 110-129 MG/DL HIGH RISK: >160 MG/DL >130 MG/DL *CHILDREN AND ADOLESCENTS REPRESENTS INDIVIDUALA AGED 2-19 YEARS EXCLUSIVE. CL 103.8 mmol/L 98.0-107.0 [facility] ([facility] NORMAL RANGES Age WBC RBC HGB HCT [...] HCT IS 5% LESS SOURCE FOR DATA: AeroFS 1800 OPERATION MANUAL( AUTOMATED BLOOD COUNTS AND [...] DESIRABLE: <130 MG/DL <110 MG/DL BORDERLINE-HIGH RISK: 130- 159 MG/DL 110-129 MG/DL HIGH RISK: >160 MG/DL >130 MG/DL *CHILDREN AND ADOLESCENTS REPRESENTS INDIVIDUALA AGED 2-19 YEARS EXCLUSIVE. K 4.5 mmol/L 3.5-5.1 [facility] ([facility] NORMAL RANGES Age WBC RBC HGB HCT [...] HCT IS 5% LESS SOURCE FOR DATA: WES DYN 1800 OPERATION MANUAL( AUTOMATED BLOOD COUNTS [...] DESIRABLE: <130 MG/DL <110 MG/DL BORDERLINE-HIGH RISK: 130- 159 MG/DL 110-129 MG/DL HIGH RISK: >160 MG/DL >130 MG/DL *CHILDREN AND ADOLESCENTS REPRESENTS INDIVIDUALA AGED 2-19 YEARS EXCLUSIVE. CA 9.8 mg/dL 8.6-10.2 [facility] ([facility] NORMAL RANGES Age WBC RBC HGB HCT [...] HCT IS 5% LESS SOURCE FOR DATA: AeroFS 1800 OPERATION MANUAL( AUTOMATED BLOOD COUNTS AND [...] DESIRABLE: <130 MG/DL <110 MG/DL BORDERLINE-HIGH RISK: 130- 159 MG/DL 110-129 MG/DL HIGH RISK: >160 MG/DL >130 MG/DL *CHILDREN AND ADOLESCENTS REPRESENTS INDIVIDUALA AGED 2-19 YEARS EXCLUSIVE. Co2 21.4 mmol/L 22.0-29.0 Below low normal [facility] ([facility] NORMAL RANGES Age WBC RBC HGB HCT [...] HCT IS 5% LESS SOURCE FOR DATA: AeroFS 1800 OPERATION MANUAL( AUTOMATED BLOOD COUNTS AND [...] DESIRABLE: <130 MG/DL <110 MG/DL BORDERLINE-HIGH RISK: 130- 159 MG/DL 110-129 MG/DL HIGH RISK: >160 MG/DL >130 MG/DL *CHILDREN AND ADOLESCENTS REPRESENTS INDIVIDUALA AGED 2-19 YEARS EXCLUSIVE. TP 6.2 g/dL 6.6-8.7 Below low normal [facility] ( [facility] NORMAL RANGES Age WBC RBC HGB HCT [...] HCT IS 5% LESS SOURCE FOR DATA: AeroFS 1800 OPERATION MANUAL( AUTOMATED BLOOD COUNTS AND [...] DESIRABLE: <130 MG/DL <110 MG/DL BORDERLINE-HIGH RISK: 130- 159 MG/DL 110-129 MG/DL HIGH RISK: >160 MG/DL >130 MG/DL *CHILDREN AND ADOLESCENTS REPRESENTS INDIVIDUALA AGED 2-19 YEARS EXCLUSIVE. Alb 4.0 g/dL 3.4-4.8 [facility] ([facility] NORMAL RANGES Age WBC RBC HGB HCT [...] HCT IS 5% LESS SOURCE FOR DATA: AeroFS 1800 OPERATION MANUAL( AUTOMATED BLOOD COUNTS AND [...] DESIRABLE: <130 MG/DL <110 MG/DL BORDERLINE-HIGH RISK: 130- 159 MG/DL 110-129 MG/DL HIGH RISK: >160 MG/DL >130 MG/DL *CHILDREN AND ADOLESCENTS REPRESENTS INDIVIDUALA AGED 2-19 YEARS EXCLUSIVE. A/G Ratio 1.8 Calc [facility] ([facility] NORMAL RANGES Age WBC RBC HGB HCT [...] HCT IS 5% LESS SOURCE FOR DATA: AeroFS 1800 OPERATION MANUAL( AUTOMATED BLOOD COUNTS AND [...] DESIRABLE: <130 MG/DL <110 MG/DL BORDERLINE-HIGH RISK: 130- 159 MG/DL 110-129 MG/DL HIGH RISK: >160 MG/DL >130 MG/DL *CHILDREN AND ADOLESCENTS REPRESENTS INDIVIDUALA AGED 2-19 YEARS EXCLUSIVE. Alp 68.1 U/L 35-129 [facility] ([facility] NORMAL RANGES Age WBC RBC HGB HCT [...] HCT IS 5% LESS SOURCE FOR DATA: AeroFS 1800 OPERATION MANUAL( AUTOMATED BLOOD COUNTS AND [...] DESIRABLE: <130 MG/DL <110 MG/DL BORDERLINE-HIGH RISK: 130- 159 MG/DL 110-129 MG/DL HIGH RISK: >160 MG/DL >130 MG/DL *CHILDREN AND ADOLESCENTS REPRESENTS INDIVIDUALA AGED 2-19 YEARS EXCLUSIVE. Globulin 2.2 Calc [facility] ([facility] NORMAL RANGES Age WBC RBC HGB HCT [...] HCT IS 5% LESS SOURCE FOR DATA: AeroFS 1800 OPERATION MANUAL( AUTOMATED BLOOD COUNTS AND [...] DESIRABLE: <130 MG/DL <110 MG/DL BORDERLINE-HIGH RISK: 130- 159 MG/DL 110-129 MG/DL HIGH RISK: >160 MG/DL >130 MG/DL *CHILDREN AND ADOLESCENTS REPRESENTS INDIVIDUALA AGED 2-19 YEARS EXCLUSIVE. Ast (Sgot) 19 U/L 0-40 [facility] ([facility] NORMAL RANGES Age WBC RBC HGB HCT [...] HCT IS 5% LESS SOURCE FOR DATA: nodila DYN 1800 OPERATION MANUAL( AUTOMATED BLOOD COUNTS [...] DESIRABLE: <130 MG/DL <110 MG/DL BORDERLINE-HIGH RISK: 130- 159 MG/DL 110-129 MG/DL HIGH RISK: >160 MG/DL >130 MG/DL *CHILDREN AND ADOLESCENTS REPRESENTS INDIVIDUALA AGED 2-19 YEARS EXCLUSIVE. Tbili 0.20 mg/dL 0.0-1.2 [facility] NORMAL RANGES Age WBC RBC HGB HCT [...] HCT IS 5% LESS SOURCE FOR DATA: AeroFS 1800 OPERATION MANUAL( AUTOMATED BLOOD COUNTS AND [...] DESIRABLE: <130 MG/DL <110 MG/DL BORDERLINE-HIGH RISK: 130- 159 MG/DL 110-129 MG/DL HIGH RISK: >160 MG/DL >130 MG/DL *CHILDREN AND ADOLESCENTS REPRESENTS INDIVIDUALA AGED 2-19 YEARS EXCLUSIVE. Alt (SGPT) 19 U/L 0-41 [facility] ([facility] NORMAL RANGES Age WBC RBC HGB HCT [...] HCT IS 5% LESS SOURCE FOR DATA: AeroFS 1800 OPERATION MANUAL( AUTOMATED BLOOD COUNTS AND [...] DESIRABLE: <130 MG/DL <110 MG/DL BORDERLINE-HIGH RISK: 130- 159 MG/DL 110-129 MG/DL HIGH RISK: >160 MG/DL >130 MG/DL *CHILDREN AND ADOLESCENTS REPRESENTS INDIVIDUALA AGED 2-19 YEARS EXCLUSIVE. Osmolality-Calculated 287.9 Calc [facility] ([facility] NORMAL RANGES Age WBC RBC HGB HCT [...] HCT IS 5% LESS SOURCE FOR DATA: AeroFS 1800 OPERATION MANUAL( AUTOMATED BLOOD COUNTS AND [...] DESIRABLE: <130 MG/DL <110 MG/DL BORDERLINE-HIGH RISK: 130- 159 MG/DL 110-129 MG/DL HIGH RISK: >160 MG/DL >130 MG/DL *CHILDREN AND ADOLESCENTS REPRESENTS INDIVIDUALA AGED 2-19 YEARS EXCLUSIVE. Anion Gap 18 mmol/L [facility] ([facility] NORMAL RANGES Age WBC RBC HGB HCT [...] HCT IS 5% LESS SOURCE FOR DATA: AeroFS 1800 OPERATION MANUAL( AUTOMATED BLOOD COUNTS AND [...] DESIRABLE: <130 MG/DL <110 MG/DL BORDERLINE-HIGH RISK: 130- 159 MG/DL 110-129 MG/DL HIGH RISK: >160 MG/DL >130 MG/DL *CHILDREN AND ADOLESCENTS REPRESENTS INDIVIDUALA AGED 2-19 YEARS EXCLUSIVE. eGFR 45 # [facility] ( [facility] NORMAL RANGES Age WBC RBC HGB HCT [...] HCT IS 5% LESS SOURCE FOR DATA: AeroFS 1800 OPERATION MANUAL( AUTOMATED BLOOD COUNTS AND [...] DESIRABLE: <130 MG/DL <110 MG/DL BORDERLINE-HIGH RISK: 130- 159 MG/DL 110-129 MG/DL HIGH RISK: >160 MG/DL >130 MG/DL *CHILDREN AND ADOLESCENTS REPRESENTS INDIVIDUALA AGED 2-19 YEARS EXCLUSIVE. eGFR Non-Afr. Israeli 39 # [facility] ([facility] NORMAL RANGES Age WBC RBC HGB HCT [...] HCT IS 5% LESS SOURCE FOR DATA: AeroFS 1800 OPERATION MANUAL( AUTOMATED BLOOD COUNTS AND [...] DESIRABLE: <130 MG/DL <110 MG/DL BORDERLINE-HIGH RISK: 130- 159 MG/DL 110-129 MG/DL HIGH RISK: >160 MG/DL >130 MG/DL *CHILDREN AND ADOLESCENTS REPRESENTS INDIVIDUALA AGED 2-19 YEARS EXCLUSIVE. ID Date Data Source [id number] 07/25/2021 09:54:00 AM EDT [facility] ([facility] Name Value Range Interpretation Code Description Data Margartia rce(s) Supporting Document(s) WBC 6.4 10E3/uL 4.1-10.9 [facility] ([facility] NORMAL RANGES Age WBC RBC HGB HCT [...] HCT IS 5% LESS SOURCE FOR DATA: AeroFS 1800 OPERATION MANUAL( AUTOMATED BLOOD COUNTS AND [...] DESIRABLE: <130 MG/DL <110 MG/DL BORDERLINE-HIGH RISK: 130- 159 MG/DL 110-129 MG/DL HIGH RISK: >160 MG/DL >130 MG/DL *CHILDREN AND ADOLESCENTS REPRESENTS INDIVIDUALA AGED 2-19 YEARS EXCLUSIVE. HGB 12.7 g/dL 12.0-18.0 [facility] ([facility] NORMAL RANGES Age WBC RBC HGB HCT [...] HCT IS 5% LESS SOURCE FOR DATA: AeroFS 1800 OPERATION MANUAL( AUTOMATED BLOOD COUNTS AND [...] DESIRABLE: <130 MG/DL <110 MG/DL BORDERLINE-HIGH RISK: 130- 159 MG/DL 110-129 MG/DL HIGH RISK: >160 MG/DL >130 MG/DL *CHILDREN AND ADOLESCENTS REPRESENTS INDIVIDUALA AGED 2-19 YEARS EXCLUSIVE. RBC 3.61 10E6/uL 4.20-6.30 Below low normal [facility] ([facility] NORMAL RANGES Age WBC RBC HGB HCT [...] HCT IS 5% LESS SOURCE FOR DATA: nodila DYN 1800 OPERATION MANUAL( AUTOMATED BLOOD COUNTS [...] DESIRABLE: <130 MG/DL <110 MG/DL BORDERLINE-HIGH RISK: 130- 159 MG/DL 110-129 MG/DL HIGH RISK: >160 MG/DL >130 MG/DL *CHILDREN AND ADOLESCENTS REPRESENTS INDIVIDUALA AGED 2-19 YEARS EXCLUSIVE. MCV 104.4 fL 80.0-97.0 Above high normal [facility] ([facility] NORMAL RANGES Age WBC RBC HGB HCT [...] HCT IS 5% LESS SOURCE FOR DATA: AeroFS 1800 OPERATION MANUAL( AUTOMATED BLOOD COUNTS AND [...] DESIRABLE: <130 MG/DL <110 MG/DL BORDERLINE-HIGH RISK: 130- 159 MG/DL 110-129 MG/DL HIGH RISK: >160 MG/DL >130 MG/DL *CHILDREN AND ADOLESCENTS REPRESENTS INDIVIDUALA AGED 2-19 YEARS EXCLUSIVE. HCT 37.7 % 37.0-51.0 [facility] ([facility] NORMAL RANGES Age WBC RBC HGB HCT [...] HCT IS 5% LESS SOURCE FOR DATA: AeroFS 1800 OPERATION MANUAL( AUTOMATED BLOOD COUNTS AND [...] DESIRABLE: <130 MG/DL <110 MG/DL BORDERLINE-HIGH RISK: 130- 159 MG/DL 110-129 MG/DL HIGH RISK: >160 MG/DL >130 MG/DL *CHILDREN AND ADOLESCENTS REPRESENTS INDIVIDUALA AGED 2-19 YEARS EXCLUSIVE. MCH 35.2 pg 26.0-32.0 Above high normal [facility] ([facility] NORMAL RANGES Age WBC RBC HGB HCT [...] HCT IS 5% LESS SOURCE FOR DATA: WES DYN 1800 OPERATION MANUAL( AUTOMATED BLOOD COUNTS [...] DESIRABLE: <130 MG/DL <110 MG/DL BORDERLINE-HIGH RISK: 130- 159 MG/DL 110-129 MG/DL HIGH RISK: >160 MG/DL >130 MG/DL *CHILDREN AND ADOLESCENTS REPRESENTS INDIVIDUALA AGED 2-19 YEARS EXCLUSIVE. PLT 209 10E3/uL 140-440 [facility] ([facility] NORMAL RANGES Age WBC RBC HGB HCT [...] HCT IS 5% LESS SOURCE FOR DATA: AeroFS 1800 OPERATION MANUAL( AUTOMATED BLOOD COUNTS AND [...] DESIRABLE: <130 MG/DL <110 MG/DL BORDERLINE-HIGH RISK: 130- 159 MG/DL 110-129 MG/DL HIGH RISK: >160 MG/DL >130 MG/DL *CHILDREN AND ADOLESCENTS REPRESENTS INDIVIDUALA AGED 2-19 YEARS EXCLUSIVE. MCHC 33.7 g/dL 31.0-36.0 [facility] NORMAL RANGES Age WBC RBC HGB HCT [...] HCT IS 5% LESS SOURCE FOR DATA: AeroFS 1800 OPERATION MANUAL( AUTOMATED BLOOD COUNTS AND [...] DESIRABLE: <130 MG/DL <110 MG/DL BORDERLINE-HIGH RISK: 130- 159 MG/DL 110-129 MG/DL HIGH RISK: >160 MG/DL >130 MG/DL *CHILDREN AND ADOLESCENTS REPRESENTS INDIVIDUALA AGED 2-19 YEARS EXCLUSIVE. Lym% 26.3 % 10.0-58.5 [facility] ([facility] NORMAL RANGES Age WBC RBC HGB HCT [...] HCT IS 5% LESS SOURCE FOR DATA: AeroFS 1800 OPERATION MANUAL( AUTOMATED BLOOD COUNTS AND [...] DESIRABLE: <130 MG/DL <110 MG/DL BORDERLINE-HIGH RISK: 130- 159 MG/DL 110-129 MG/DL HIGH RISK: >160 MG/DL >130 MG/DL *CHILDREN AND ADOLESCENTS REPRESENTS INDIVIDUALA AGED 2-19 YEARS EXCLUSIVE. RDW-CV 13.0 % 11.5-14.5 [facility] ([facility] NORMAL RANGES Age WBC RBC HGB HCT [...] HCT IS 5% LESS SOURCE FOR DATA: AeroFS 1800 OPERATION MANUAL( AUTOMATED BLOOD COUNTS AND [...] DESIRABLE: <130 MG/DL <110 MG/DL BORDERLINE-HIGH RISK: 130- 159 MG/DL 110-129 MG/DL HIGH RISK: >160 MG/DL >130 MG/DL *CHILDREN AND ADOLESCENTS REPRESENTS INDIVIDUALA AGED 2-19 YEARS EXCLUSIVE. MXD% 14.2 % 0.1-24.0 [facility] ([facility] NORMAL RANGES Age WBC RBC HGB HCT [...] HCT IS 5% LESS SOURCE FOR DATA: AeroFS 1800 OPERATION MANUAL( AUTOMATED BLOOD COUNTS AND [...] DESIRABLE: <130 MG/DL <110 MG/DL BORDERLINE-HIGH RISK: 130- 159 MG/DL 110-129 MG/DL HIGH RISK: >160 MG/DL >130 MG/DL *CHILDREN AND ADOLESCENTS REPRESENTS INDIVIDUALA AGED 2-19 YEARS EXCLUSIVE. Neut% 59.5 % 37.0-92.0 [facility] ([facility] NORMAL RANGES Age WBC RBC HGB HCT [...] HCT IS 5% LESS SOURCE FOR DATA: AeroFS 1800 OPERATION MANUAL( AUTOMATED BLOOD COUNTS AND [...] DESIRABLE: <130 MG/DL <110 MG/DL BORDERLINE-HIGH RISK: 130- 159 MG/DL 110-129 MG/DL HIGH RISK: >160 MG/DL >130 MG/DL *CHILDREN AND ADOLESCENTS REPRESENTS INDIVIDUALA AGED 2-19 YEARS EXCLUSIVE. MXD# 0.9 10E3/uL 0.0-1.8 [facility] ([facility] NORMAL RANGES Age WBC RBC HGB HCT [...] HCT IS 5% LESS SOURCE FOR DATA: AeroFS 1800 OPERATION MANUAL( AUTOMATED BLOOD COUNTS AND [...] DESIRABLE: <130 MG/DL <110 MG/DL BORDERLINE-HIGH RISK: 130- 159 MG/DL 110-129 MG/DL HIGH RISK: >160 MG/DL >130 MG/DL *CHILDREN AND ADOLESCENTS REPRESENTS INDIVIDUALA AGED 2-19 YEARS EXCLUSIVE. Neut# 3.8 % 2.0-7.8 [facility] NORMAL RANGES Age WBC RBC HGB HCT [...] HCT IS 5% LESS SOURCE FOR DATA: AeroFS 1800 OPERATION MANUAL( AUTOMATED BLOOD COUNTS AND [...] DESIRABLE: <130 MG/DL <110 MG/DL BORDERLINE-HIGH RISK: 130- 159 MG/DL 110-129 MG/DL HIGH RISK: >160 MG/DL >130 MG/DL *CHILDREN AND ADOLESCENTS REPRESENTS INDIVIDUALA AGED 2-19 YEARS EXCLUSIVE. Lym# 1.7 10E3/uL 0.6-4.1 [facility] ([facility] NORMAL RANGES Age WBC RBC HGB HCT [...] HCT IS 5% LESS SOURCE FOR DATA: AeroFS 1800 OPERATION MANUAL( AUTOMATED BLOOD COUNTS AND [...] DESIRABLE: <130 MG/DL <110 MG/DL BORDERLINE-HIGH RISK: 130- 159 MG/DL 110-129 MG/DL HIGH RISK: >160 MG/DL >130 MG/DL *CHILDREN AND ADOLESCENTS REPRESENTS INDIVIDUALA AGED 2-19 YEARS EXCLUSIVE. MPV 8.3 fL 9.0-13.0 Below low normal [facility] ( [facility] NORMAL RANGES Age WBC RBC HGB HCT [...] HCT IS 5% LESS SOURCE FOR DATA: AeroFS 1800 OPERATION MANUAL( AUTOMATED BLOOD COUNTS AND [...] DESIRABLE: <130 MG/DL <110 MG/DL BORDERLINE-HIGH RISK: 130- 159 MG/DL 110-129 MG/DL HIGH RISK: >160 MG/DL >130 MG/DL *CHILDREN AND ADOLESCENTS REPRESENTS INDIVIDUALA AGED 2-19 YEARS EXCLUSIVE. ID Date Data Source [id number] 07/25/2021 09:54:00 AM EDT [facility] ([facility] Name Value Range Interpretation Code Description Data Margarita rce(s) Supporting Document(s) Hemoglobin A1c/Hemoglobin.total in Blood 6.6 % 4.50-6.20 Above high normal [facility] ([facility] ID Date Data Source [id number] 04/11/2021 09:57:00 AM EDT [facility] ([facility] Name Value Range Interpretation Code Description Data Margarita rce(s) Supporting Document(s) RBC 3.76 10E6/uL 4.20-6.30 Below low normal [facility] ([facility] NORMAL RANGES Age WBC RBC HGB HCT [...] HCT IS 5% LESS SOURCE FOR DATA: AeroFS 1800 OPERATION MANUAL( AUTOMATED BLOOD COUNTS AND [...] DESIRABLE: <130 MG/DL <110 MG/DL BORDERLINE-HIGH RISK: 130- 159 MG/DL 110-129 MG/DL HIGH RISK: >160 MG/DL >130 MG/DL *CHILDREN AND ADOLESCENTS REPRESENTS INDIVIDUALA AGED 2-19 YEARS EXCLUSIVE. WBC 6.1 10E3/uL 4.1-10.9 [facility] ([facility] NORMAL RANGES Age WBC RBC HGB HCT [...] HCT IS 5% LESS SOURCE FOR DATA: AeroFS 1800 OPERATION MANUAL( AUTOMATED BLOOD COUNTS AND [...] DESIRABLE: <130 MG/DL <110 MG/DL BORDERLINE-HIGH RISK: 130- 159 MG/DL 110-129 MG/DL HIGH RISK: >160 MG/DL >130 MG/DL *CHILDREN AND ADOLESCENTS REPRESENTS INDIVIDUALA AGED 2-19 YEARS EXCLUSIVE. HGB 13.0 g/dL 12.0-18.0 [facility] ([facility] NORMAL RANGES Age WBC RBC HGB HCT [...] HCT IS 5% LESS SOURCE FOR DATA: WES DYN 1800 OPERATION MANUAL( AUTOMATED BLOOD COUNTS [...] DESIRABLE: <130 MG/DL <110 MG/DL BORDERLINE-HIGH RISK: 130- 159 MG/DL 110-129 MG/DL HIGH RISK: >160 MG/DL >130 MG/DL *CHILDREN AND ADOLESCENTS REPRESENTS INDIVIDUALA AGED 2-19 YEARS EXCLUSIVE. HCT 39.0 % 37.0-51.0 [facility] NORMAL RANGES Age WBC RBC HGB HCT [...] HCT IS 5% LESS SOURCE FOR DATA: AeroFS 1800 OPERATION MANUAL( AUTOMATED BLOOD COUNTS AND [...] DESIRABLE: <130 MG/DL <110 MG/DL BORDERLINE-HIGH RISK: 130- 159 MG/DL 110-129 MG/DL HIGH RISK: >160 MG/DL >130 MG/DL *CHILDREN AND ADOLESCENTS REPRESENTS INDIVIDUALA AGED 2-19 YEARS EXCLUSIVE. MCV 103.7 fL 80.0-97.0 Above high normal [facility] ([facility] NORMAL RANGES Age WBC RBC HGB HCT [...] HCT IS 5% LESS SOURCE FOR DATA: AeroFS 1800 OPERATION MANUAL( AUTOMATED BLOOD COUNTS AND [...] DESIRABLE: <130 MG/DL <110 MG/DL BORDERLINE-HIGH RISK: 130- 159 MG/DL 110-129 MG/DL HIGH RISK: >160 MG/DL >130 MG/DL *CHILDREN AND ADOLESCENTS REPRESENTS INDIVIDUALA AGED 2-19 YEARS EXCLUSIVE. MCH 34.6 pg 26.0-32.0 Above high normal [facility] ([facility] NORMAL RANGES Age WBC RBC HGB HCT [...] HCT IS 5% LESS SOURCE FOR DATA: nodila DYN 1800 OPERATION MANUAL( AUTOMATED BLOOD COUNTS [...] DESIRABLE: <130 MG/DL <110 MG/DL BORDERLINE-HIGH RISK: 130- 159 MG/DL 110-129 MG/DL HIGH RISK: >160 MG/DL >130 MG/DL *CHILDREN AND ADOLESCENTS REPRESENTS INDIVIDUALA AGED 2-19 YEARS EXCLUSIVE. MCHC 33.3 g/dL 31.0-36.0 [facility] ([facility] NORMAL RANGES Age WBC RBC HGB HCT [...] HCT IS 5% LESS SOURCE FOR DATA: AeroFS 1800 OPERATION MANUAL( AUTOMATED BLOOD COUNTS AND [...] DESIRABLE: <130 MG/DL <110 MG/DL BORDERLINE-HIGH RISK: 130- 159 MG/DL 110-129 MG/DL HIGH RISK: >160 MG/DL >130 MG/DL *CHILDREN AND ADOLESCENTS REPRESENTS INDIVIDUALA AGED 2-19 YEARS EXCLUSIVE. PLT 198 10E3/uL 140-440 [facility] ([facility] NORMAL RANGES Age WBC RBC HGB HCT [...] HCT IS 5% LESS SOURCE FOR DATA: AeroFS 1800 OPERATION MANUAL( AUTOMATED BLOOD COUNTS AND [...] DESIRABLE: <130 MG/DL <110 MG/DL BORDERLINE-HIGH RISK: 130- 159 MG/DL 110-129 MG/DL HIGH RISK: >160 MG/DL >130 MG/DL *CHILDREN AND ADOLESCENTS REPRESENTS INDIVIDUALA AGED 2-19 YEARS EXCLUSIVE. RDW-CV 13.0 % 11.5-14.5 [facility] ([facility] NORMAL RANGES Age WBC RBC HGB HCT [...] HCT IS 5% LESS SOURCE FOR DATA: AeroFS 1800 OPERATION MANUAL( AUTOMATED BLOOD COUNTS AND [...] DESIRABLE: <130 MG/DL <110 MG/DL BORDERLINE-HIGH RISK: 130- 159 MG/DL 110-129 MG/DL HIGH RISK: >160 MG/DL >130 MG/DL *CHILDREN AND ADOLESCENTS REPRESENTS INDIVIDUALA AGED 2-19 YEARS EXCLUSIVE. Neut% 55.9 % 37.0-92.0 [facility] ([facility] NORMAL RANGES Age WBC RBC HGB HCT [...] HCT IS 5% LESS SOURCE FOR DATA: AeroFS 1800 OPERATION MANUAL( AUTOMATED BLOOD COUNTS AND [...] DESIRABLE: <130 MG/DL <110 MG/DL BORDERLINE-HIGH RISK: 130- 159 MG/DL 110-129 MG/DL HIGH RISK: >160 MG/DL >130 MG/DL *CHILDREN AND ADOLESCENTS REPRESENTS INDIVIDUALA AGED 2-19 YEARS EXCLUSIVE. Lym% 28.3 % 10.0-58.5 [facility] [facility] NORMAL RANGES Age WBC RBC HGB HCT [...] HCT IS 5% LESS SOURCE FOR DATA: AeroFS 1800 OPERATION MANUAL( AUTOMATED BLOOD COUNTS AND [...] DESIRABLE: <130 MG/DL <110 MG/DL BORDERLINE-HIGH RISK: 130- 159 MG/DL 110-129 MG/DL HIGH RISK: >160 MG/DL >130 MG/DL *CHILDREN AND ADOLESCENTS REPRESENTS INDIVIDUALA AGED 2-19 YEARS EXCLUSIVE. MXD% 15.8 % 0.1-24.0 [facility] ([facility] NORMAL RANGES Age WBC RBC HGB HCT [...] HCT IS 5% LESS SOURCE FOR DATA: nodila DYN 1800 OPERATION MANUAL( AUTOMATED BLOOD COUNTS [...] DESIRABLE: <130 MG/DL <110 MG/DL BORDERLINE-HIGH RISK: 130- 159 MG/DL 110-129 MG/DL HIGH RISK: >160 MG/DL >130 MG/DL *CHILDREN AND ADOLESCENTS REPRESENTS INDIVIDUALA AGED 2-19 YEARS EXCLUSIVE. Lym# 1.7 10E3/uL 0.6-4.1 [facility] ([facility] NORMAL RANGES Age WBC RBC HGB HCT [...] HCT IS 5% LESS SOURCE FOR DATA: AeroFS 1800 OPERATION MANUAL( AUTOMATED BLOOD COUNTS AND [...] DESIRABLE: <130 MG/DL <110 MG/DL BORDERLINE-HIGH RISK: 130- 159 MG/DL 110-129 MG/DL HIGH RISK: >160 MG/DL >130 MG/DL *CHILDREN AND ADOLESCENTS REPRESENTS INDIVIDUALA AGED 2-19 YEARS EXCLUSIVE. Neut# 3.4 % 2.0-7.8 [facility] ([facility] NORMAL RANGES Age WBC RBC HGB HCT [...] HCT IS 5% LESS SOURCE FOR DATA: AeroFS 1800 OPERATION MANUAL( AUTOMATED BLOOD COUNTS AND [...] DESIRABLE: <130 MG/DL <110 MG/DL BORDERLINE-HIGH RISK: 130- 159 MG/DL 110-129 MG/DL HIGH RISK: >160 MG/DL >130 MG/DL *CHILDREN AND ADOLESCENTS REPRESENTS INDIVIDUALA AGED 2-19 YEARS EXCLUSIVE. MPV 8.9 fL 9.0-13.0 Below low normal [facility] ( [facility] NORMAL RANGES Age WBC RBC HGB HCT [...] HCT IS 5% LESS SOURCE FOR DATA: AeroFS 1800 OPERATION MANUAL( AUTOMATED BLOOD COUNTS AND [...] DESIRABLE: <130 MG/DL <110 MG/DL BORDERLINE-HIGH RISK: 130- 159 MG/DL 110-129 MG/DL HIGH RISK: >160 MG/DL >130 MG/DL *CHILDREN AND ADOLESCENTS REPRESENTS INDIVIDUALA AGED 2-19 YEARS EXCLUSIVE. MXD# 1.0 10E3/uL 0.0-1.8 [facility] ([facility] NORMAL RANGES Age WBC RBC HGB HCT [...] HCT IS 5% LESS SOURCE FOR DATA: AeroFS 1800 OPERATION MANUAL( AUTOMATED BLOOD COUNTS AND [...] DESIRABLE: <130 MG/DL <110 MG/DL BORDERLINE-HIGH RISK: 130- 159 MG/DL 110-129 MG/DL HIGH RISK: >160 MG/DL >130 MG/DL *CHILDREN AND ADOLESCENTS REPRESENTS INDIVIDUALA AGED 2-19 YEARS EXCLUSIVE. ID Date Data Source [id number] 04/11/2021 09:57:00 AM EDT [facility] ([facility] Name Value Range Interpretation Code Description Data Margarita rce(s) Supporting Document(s) Trig 164 mg/dL 40-200 [facility] ([facility] NORMAL RANGES Age WBC RBC HGB HCT [...] HCT IS 5% LESS SOURCE FOR DATA: WES DYN 1800 OPERATION MANUAL( AUTOMATED BLOOD COUNTS [...] DESIRABLE: <130 MG/DL <110 MG/DL BORDERLINE-HIGH RISK: 130- 159 MG/DL 110-129 MG/DL HIGH RISK: >160 MG/DL >130 MG/DL *CHILDREN AND ADOLESCENTS REPRESENTS INDIVIDUALA AGED 2-19 YEARS EXCLUSIVE. Chol 160 mg/dL 0-200 [facility] ([facility] NORMAL RANGES Age WBC RBC HGB HCT [...] HCT IS 5% LESS SOURCE FOR DATA: AeroFS 1800 OPERATION MANUAL( AUTOMATED BLOOD COUNTS AND [...] DESIRABLE: <130 MG/DL <110 MG/DL BORDERLINE-HIGH RISK: 130- 159 MG/DL 110-129 MG/DL HIGH RISK: >160 MG/DL >130 MG/DL *CHILDREN AND ADOLESCENTS REPRESENTS INDIVIDUALA AGED 2-19 YEARS EXCLUSIVE. Cholesterol in HDL [Mass/volume] in Serum or Plasma 41 mg/dL 45-65 Below low normal [facility] ([facility] NORMAL RANGES Age WBC RBC HGB HCT [...] HCT IS 5% LESS SOURCE FOR DATA: AeroFS 1800 OPERATION MANUAL( AUTOMATED BLOOD COUNTS AND [...] DESIRABLE: <130 MG/DL <110 MG/DL BORDERLINE-HIGH RISK: 130- 159 MG/DL 110-129 MG/DL HIGH RISK: >160 MG/DL >130 MG/DL *CHILDREN AND ADOLESCENTS REPRESENTS INDIVIDUALA AGED 2-19 YEARS EXCLUSIVE. LDL_C 87 Calc 75-129 [facility] ([facility] NORMAL RANGES Age WBC RBC HGB HCT [...] HCT IS 5% LESS SOURCE FOR DATA: AeroFS 1800 OPERATION MANUAL( AUTOMATED BLOOD COUNTS AND [...] DESIRABLE: <130 MG/DL <110 MG/DL BORDERLINE-HIGH RISK: 130- 159 MG/DL 110-129 MG/DL HIGH RISK: >160 MG/DL >130 MG/DL *CHILDREN AND ADOLESCENTS REPRESENTS INDIVIDUALA AGED 2-19 YEARS EXCLUSIVE. Cho/HDL Ratio 3.9 Calc [facility] ([facility] NORMAL RANGES Age WBC RBC HGB HCT [...] HCT IS 5% LESS SOURCE FOR DATA: AeroFS 1800 OPERATION MANUAL( AUTOMATED BLOOD COUNTS AND [...] DESIRABLE: <130 MG/DL <110 MG/DL BORDERLINE-HIGH RISK: 130- 159 MG/DL 110-129 MG/DL HIGH RISK: >160 MG/DL >130 MG/DL *CHILDREN AND ADOLESCENTS REPRESENTS INDIVIDUALA AGED 2-19 YEARS EXCLUSIVE. ID Date Data Source [id number] 04/11/2021 09:57:00 AM EDT [facility] ([facility] Name Value Range Interpretation Code Description Data Margarita rce(s) Supporting Document(s) Glu 122 mg/dL 70-110 Above high normal [facility] ([facility] NORMAL RANGES Age WBC RBC HGB HCT [...] HCT IS 5% LESS SOURCE FOR DATA: AeroFS 1800 OPERATION MANUAL( AUTOMATED BLOOD COUNTS AND [...] DESIRABLE: <130 MG/DL <110 MG/DL BORDERLINE-HIGH RISK: 130- 159 MG/DL 110-129 MG/DL HIGH RISK: >160 MG/DL >130 MG/DL *CHILDREN AND ADOLESCENTS REPRESENTS INDIVIDUALA AGED 2-19 YEARS EXCLUSIVE. BUN 28 mg/dL 8-23 Above high normal [facility] ([facility] NORMAL RANGES Age WBC RBC HGB HCT [...] HCT IS 5% LESS SOURCE FOR DATA: AeroFS 1800 OPERATION MANUAL( AUTOMATED BLOOD COUNTS AND [...] DESIRABLE: <130 MG/DL <110 MG/DL BORDERLINE-HIGH RISK: 130- 159 MG/DL 110-129 MG/DL HIGH RISK: >160 MG/DL >130 MG/DL *CHILDREN AND ADOLESCENTS REPRESENTS INDIVIDUALA AGED 2-19 YEARS EXCLUSIVE. Creat 1.3 mg/dL 0.5-1.0 Above high normal [facility] ([facility] NORMAL RANGES Age WBC RBC HGB HCT [...] HCT IS 5% LESS SOURCE FOR DATA: AeroFS 1800 OPERATION MANUAL( AUTOMATED BLOOD COUNTS AND [...] DESIRABLE: <130 MG/DL <110 MG/DL BORDERLINE-HIGH RISK: 130- 159 MG/DL 110-129 MG/DL HIGH RISK: >160 MG/DL >130 MG/DL *CHILDREN AND ADOLESCENTS REPRESENTS INDIVIDUALA AGED 2-19 YEARS EXCLUSIVE. BUN/Creatinine Ratio 21.9 CALC [facility] ([facility] NORMAL RANGES Age WBC RBC HGB HCT [...] HCT IS 5% LESS SOURCE FOR DATA: AeroFS 1800 OPERATION MANUAL( AUTOMATED BLOOD COUNTS AND [...] DESIRABLE: <130 MG/DL <110 MG/DL BORDERLINE-HIGH RISK: 130- 159 MG/DL 110-129 MG/DL HIGH RISK: >160 MG/DL >130 MG/DL *CHILDREN AND ADOLESCENTS REPRESENTS INDIVIDUALA AGED 2-19 YEARS EXCLUSIVE. K 4.4 mmol/L 3.5-5.1 [facility] ([facility] NORMAL RANGES Age WBC RBC HGB HCT [...] HCT IS 5% LESS SOURCE FOR DATA: AeroFS 1800 OPERATION MANUAL( AUTOMATED BLOOD COUNTS AND [...] DESIRABLE: <130 MG/DL <110 MG/DL BORDERLINE-HIGH RISK: 130- 159 MG/DL 110-129 MG/DL HIGH RISK: >160 MG/DL >130 MG/DL *CHILDREN AND ADOLESCENTS REPRESENTS INDIVIDUALA AGED 2-19 YEARS EXCLUSIVE. Na 140 mmol/L 136-145 [facility] ([facility] NORMAL RANGES Age WBC RBC HGB HCT [...] HCT IS 5% LESS SOURCE FOR DATA: AeroFS 1800 OPERATION MANUAL( AUTOMATED BLOOD COUNTS AND [...] DESIRABLE: <130 MG/DL <110 MG/DL BORDERLINE-HIGH RISK: 130- 159 MG/DL 110-129 MG/DL HIGH RISK: >160 MG/DL >130 MG/DL *CHILDREN AND ADOLESCENTS REPRESENTS INDIVIDUALA AGED 2-19 YEARS EXCLUSIVE. CL 103.9 mmol/L 98.0-107.0 [facility] ([facility] NORMAL RANGES Age WBC RBC HGB HCT [...] HCT IS 5% LESS SOURCE FOR DATA: AeroFS 1800 OPERATION MANUAL( AUTOMATED BLOOD COUNTS AND [...] DESIRABLE: <130 MG/DL <110 MG/DL BORDERLINE-HIGH RISK: 130- 159 MG/DL 110-129 MG/DL HIGH RISK: >160 MG/DL >130 MG/DL *CHILDREN AND ADOLESCENTS REPRESENTS INDIVIDUALA AGED 2-19 YEARS EXCLUSIVE. Co2 26.6 mmol/L 22.0-29.0 [employer] ([facility] NORMAL RANGES Age WBC RBC HGB HCT [...] HCT IS 5% LESS SOURCE FOR DATA: AeroFS 1800 OPERATION MANUAL( AUTOMATED BLOOD COUNTS AND [...] DESIRABLE: <130 MG/DL <110 MG/DL BORDERLINE-HIGH RISK: 130- 159 MG/DL 110-129 MG/DL HIGH RISK: >160 MG/DL >130 MG/DL *CHILDREN AND ADOLESCENTS REPRESENTS INDIVIDUALA AGED 2-19 YEARS EXCLUSIVE. CA 10.0 mg/dL 8.6-10.2 [facility] ([facility] NORMAL RANGES Age WBC RBC HGB HCT [...] HCT IS 5% LESS SOURCE FOR DATA: AeroFS 1800 OPERATION MANUAL( AUTOMATED BLOOD COUNTS AND [...] DESIRABLE: <130 MG/DL <110 MG/DL BORDERLINE-HIGH RISK: 130- 159 MG/DL 110-129 MG/DL HIGH RISK: >160 MG/DL >130 MG/DL *CHILDREN AND ADOLESCENTS REPRESENTS INDIVIDUALA AGED 2-19 YEARS EXCLUSIVE. TP 6.6 g/dL 6.6-8.7 [facility] ([facility] NORMAL RANGES Age WBC RBC HGB HCT [...] HCT IS 5% LESS SOURCE FOR DATA: nodila DYN 1800 OPERATION MANUAL( AUTOMATED BLOOD COUNTS [...] DESIRABLE: <130 MG/DL <110 MG/DL BORDERLINE-HIGH RISK: 130- 159 MG/DL 110-129 MG/DL HIGH RISK: >160 MG/DL >130 MG/DL *CHILDREN AND ADOLESCENTS REPRESENTS INDIVIDUALA AGED 2-19 YEARS EXCLUSIVE. Alb 4.3 g/dL 3.4-4.8 [facility] ([facility] NORMAL RANGES Age WBC RBC HGB HCT [...] HCT IS 5% LESS SOURCE FOR DATA: AeroFS 1800 OPERATION MANUAL( AUTOMATED BLOOD COUNTS AND [...] DESIRABLE: <130 MG/DL <110 MG/DL BORDERLINE-HIGH RISK: 130- 159 MG/DL 110-129 MG/DL HIGH RISK: >160 MG/DL >130 MG/DL *CHILDREN AND ADOLESCENTS REPRESENTS INDIVIDUALA AGED 2-19 YEARS EXCLUSIVE. A/G Ratio 1.9 CALC [facility] ([facility] NORMAL RANGES Age WBC RBC HGB HCT [...] HCT IS 5% LESS SOURCE FOR DATA: AeroFS 1800 OPERATION MANUAL( AUTOMATED BLOOD COUNTS AND [...] DESIRABLE: <130 MG/DL <110 MG/DL BORDERLINE-HIGH RISK: 130- 159 MG/DL 110-129 MG/DL HIGH RISK: >160 MG/DL >130 MG/DL *CHILDREN AND ADOLESCENTS REPRESENTS INDIVIDUALA AGED 2-19 YEARS EXCLUSIVE. Alp 60.6 U/L 35-129 [facility] ([facility] NORMAL RANGES Age WBC RBC HGB HCT [...] HCT IS 5% LESS SOURCE FOR DATA: nodila DYN 1800 OPERATION MANUAL( AUTOMATED BLOOD COUNTS [...] DESIRABLE: <130 MG/DL <110 MG/DL BORDERLINE-HIGH RISK: 130- 159 MG/DL 110-129 MG/DL HIGH RISK: >160 MG/DL >130 MG/DL *CHILDREN AND ADOLESCENTS REPRESENTS INDIVIDUALA AGED 2-19 YEARS EXCLUSIVE. Globulin 2.3 CALC [facility] ([facility] NORMAL RANGES Age WBC RBC HGB HCT [...] HCT IS 5% LESS SOURCE FOR DATA: AeroFS 1800 OPERATION MANUAL( AUTOMATED BLOOD COUNTS AND [...] DESIRABLE: <130 MG/DL <110 MG/DL BORDERLINE-HIGH RISK: 130- 159 MG/DL 110-129 MG/DL HIGH RISK: >160 MG/DL >130 MG/DL *CHILDREN AND ADOLESCENTS REPRESENTS INDIVIDUALA AGED 2-19 YEARS EXCLUSIVE. Ast (Sgot) 19 U/L 0-40 [facility] ([facility] NORMAL RANGES Age WBC RBC HGB HCT [...] HCT IS 5% LESS SOURCE FOR DATA: AeroFS 1800 OPERATION MANUAL( AUTOMATED BLOOD COUNTS AND [...] DESIRABLE: <130 MG/DL <110 MG/DL BORDERLINE-HIGH RISK: 130- 159 MG/DL 110-129 MG/DL HIGH RISK: >160 MG/DL >130 MG/DL *CHILDREN AND ADOLESCENTS REPRESENTS INDIVIDUALA AGED 2-19 YEARS EXCLUSIVE. Alt (SGPT) 20 U/L 0-41 [facility] ([facility] NORMAL RANGES Age WBC RBC HGB HCT [...] HCT IS 5% LESS SOURCE FOR DATA: AeroFS 1800 OPERATION MANUAL( AUTOMATED BLOOD COUNTS AND [...] DESIRABLE: <130 MG/DL <110 MG/DL BORDERLINE-HIGH RISK: 130- 159 MG/DL 110-129 MG/DL HIGH RISK: >160 MG/DL >130 MG/DL *CHILDREN AND ADOLESCENTS REPRESENTS INDIVIDUALA AGED 2-19 YEARS EXCLUSIVE. Tbili 0.23 mg/dL 0.0-1.2 [facility] ([facility] NORMAL RANGES Age WBC RBC HGB HCT [...] HCT IS 5% LESS SOURCE FOR DATA: AeroFS 1800 OPERATION MANUAL( AUTOMATED BLOOD COUNTS AND [...] DESIRABLE: <130 MG/DL <110 MG/DL BORDERLINE-HIGH RISK: 130- 159 MG/DL 110-129 MG/DL HIGH RISK: >160 MG/DL >130 MG/DL *CHILDREN AND ADOLESCENTS REPRESENTS INDIVIDUALA AGED 2-19 YEARS EXCLUSIVE. Osmolality-Calculated 286.3 CALC [facility] ([facility] NORMAL RANGES Age WBC RBC HGB HCT [...] HCT IS 5% LESS SOURCE FOR DATA: nodila DYN 1800 OPERATION MANUAL( AUTOMATED BLOOD COUNTS [...] DESIRABLE: <130 MG/DL <110 MG/DL BORDERLINE-HIGH RISK: 130- 159 MG/DL 110-129 MG/DL HIGH RISK: >160 MG/DL >130 MG/DL *CHILDREN AND ADOLESCENTS REPRESENTS INDIVIDUALA AGED 2-19 YEARS EXCLUSIVE. Anion Gap 14 mmol/L [facility] NORMAL RANGES Age WBC RBC HGB HCT [...] HCT IS 5% LESS SOURCE FOR DATA: nodila DYN 1800 OPERATION MANUAL( AUTOMATED BLOOD COUNTS [...] DESIRABLE: <130 MG/DL <110 MG/DL BORDERLINE-HIGH RISK: 130- 159 MG/DL 110-129 MG/DL HIGH RISK: >160 MG/DL >130 MG/DL *CHILDREN AND ADOLESCENTS REPRESENTS INDIVIDUALA AGED 2-19 YEARS EXCLUSIVE. eGFR 45 # [facility] ( [facility] CKD-EPI eGFR Non-Afr. Israeli 39 # [facility] ([facility] CKD-EPI ID Date Data Source [id number] 04/11/2021 09:57:00 AM EDT [facility] ([facility] Name Value Range Interpretation Code Description Data Margarita rce(s) Supporting Document(s) Hemoglobin A1c/Hemoglobin.total in Blood 6.5 % 4.50-6.20 Above high normal [facility] ([facility] ID Date Data Source [id number] 01/19/2021 08:48:00 AM EDT [facility] ([facility] Name Value Range Interpretation Code Description Data Margarita rce(s) Supporting Document(s) Trig 164 mg/dL 40-200 [facility] ([facility] CHRONIC KIDNEY DISEASE STAGING PER NKF: MALE [...] DESIRABLE: <130 MG/DL <110 MG/DL BORDERLINE-HIGH RISK: 130- 159 MG/DL 110-129 MG/DL HIGH RISK: >160 MG/DL >130 MG/DL *CHILDREN AND ADOLESCENTS REPRESENTS INDIVIDUALA AGED 2-19 YEARS EXCLUSIVE. Chol 153 mg/dL 0-200 [facility] ([facility] CHRONIC KIDNEY DISEASE STAGING PER NKF: MALE [...] DESIRABLE: <130 MG/DL <110 MG/DL BORDERLINE-HIGH RISK: 130- 159 MG/DL 110-129 MG/DL HIGH RISK: >160 MG/DL >130 MG/DL *CHILDREN AND ADOLESCENTS REPRESENTS INDIVIDUALA AGED 2-19 YEARS EXCLUSIVE. Cholesterol in HDL [Mass/volume] in Serum or Plasma 42 mg/dL 45-65 Below low normal [facility] ([facility] CHRONIC KIDNEY DISEASE STAGING PER NKF: MALE [...] DESIRABLE: <130 MG/DL <110 MG/DL BORDERLINE-HIGH RISK: 130- 159 MG/DL 110-129 MG/DL HIGH RISK: >160 MG/DL >130 MG/DL *CHILDREN AND ADOLESCENTS REPRESENTS INDIVIDUALA AGED 2-19 YEARS EXCLUSIVE. LDL_C 78 Calc 75-129 [facility] ([facility] CHRONIC KIDNEY DISEASE STAGING PER NKF: MALE [...] DESIRABLE: <130 MG/DL <110 MG/DL BORDERLINE-HIGH RISK: 130- 159 MG/DL 110-129 MG/DL HIGH RISK: >160 MG/DL >130 MG/DL *CHILDREN AND ADOLESCENTS REPRESENTS INDIVIDUALA AGED 2-19 YEARS EXCLUSIVE. Cho/HDL Ratio 3.6 CALC [facility] ([facility] CHRONIC KIDNEY DISEASE STAGING PER NKF: MALE [...] DESIRABLE: <130 MG/DL <110 MG/DL BORDERLINE-HIGH RISK: 130- 159 MG/DL 110-129 MG/DL HIGH RISK: >160 MG/DL >130 MG/DL *CHILDREN AND ADOLESCENTS REPRESENTS INDIVIDUALA AGED 2-19 YEARS EXCLUSIVE. ID Date Data Source [id number] 01/19/2021 08:48:00 AM EDT [facility] ([facility] Name Value Range Interpretation Code Description Data Margarita rce(s) Supporting Document(s) BUN 26 mg/dL 8-23 Above high normal [facility] ([facility] CHRONIC KIDNEY DISEASE STAGING PER NKF: MALE [...] DESIRABLE: <130 MG/DL <110 MG/DL BORDERLINE-HIGH RISK: 130- 159 MG/DL 110-129 MG/DL HIGH RISK: >160 MG/DL >130 MG/DL *CHILDREN AND ADOLESCENTS REPRESENTS INDIVIDUALA AGED 2-19 YEARS EXCLUSIVE. Glu 208 mg/dL 70-110 Above high normal [facility] ([facility] CHRONIC KIDNEY DISEASE STAGING PER NKF: MALE [...] DESIRABLE: <130 MG/DL <110 MG/DL BORDERLINE-HIGH RISK: 130- 159 MG/DL 110-129 MG/DL HIGH RISK: >160 MG/DL >130 MG/DL *CHILDREN AND ADOLESCENTS REPRESENTS INDIVIDUALA AGED 2-19 YEARS EXCLUSIVE. Creat 1.3 mg/dL 0.5-1.0 Above high normal [facility] ([facility] CHRONIC KIDNEY DISEASE STAGING PER NKF: MALE [...] DESIRABLE: <130 MG/DL <110 MG/DL BORDERLINE-HIGH RISK: 130- 159 MG/DL 110-129 MG/DL HIGH RISK: >160 MG/DL >130 MG/DL *CHILDREN AND ADOLESCENTS REPRESENTS INDIVIDUALA AGED 2-19 YEARS EXCLUSIVE. BUN/Creatinine Ratio 20.3 CALC [facility] ([facility] CHRONIC KIDNEY DISEASE STAGING PER NKF: MALE [...] DESIRABLE: <130 MG/DL <110 MG/DL BORDERLINE-HIGH RISK: 130- 159 MG/DL 110-129 MG/DL HIGH RISK: >160 MG/DL >130 MG/DL *CHILDREN AND ADOLESCENTS REPRESENTS INDIVIDUALA AGED 2-19 YEARS EXCLUSIVE. Na 137 mmol/L 136-145 [facility] ([facility] CHRONIC KIDNEY DISEASE STAGING PER NKF: MALE [...] DESIRABLE: <130 MG/DL <110 MG/DL BORDERLINE-HIGH RISK: 130- 159 MG/DL 110-129 MG/DL HIGH RISK: >160 MG/DL >130 MG/DL *CHILDREN AND ADOLESCENTS REPRESENTS INDIVIDUALA AGED 2-19 YEARS EXCLUSIVE. K 4.5 mmol/L 3.5-5.1 [facility] ([facility] CHRONIC KIDNEY DISEASE STAGING PER NKF: MALE [...] DESIRABLE: <130 MG/DL <110 MG/DL BORDERLINE-HIGH RISK: 130- 159 MG/DL 110-129 MG/DL HIGH RISK: >160 MG/DL >130 MG/DL *CHILDREN AND ADOLESCENTS REPRESENTS INDIVIDUALA AGED 2-19 YEARS EXCLUSIVE. CL 101.5 mmol/L 98.0-107.0 [facility] ([facility] CHRONIC KIDNEY DISEASE STAGING PER NKF: MALE [...] DESIRABLE: <130 MG/DL <110 MG/DL BORDERLINE-HIGH RISK: 130- 159 MG/DL 110-129 MG/DL HIGH RISK: >160 MG/DL >130 MG/DL *CHILDREN AND ADOLESCENTS REPRESENTS INDIVIDUALA AGED 2-19 YEARS EXCLUSIVE. CA 9.8 mg/dL 8.6-10.2 [facility] ([facility] CHRONIC KIDNEY DISEASE STAGING PER NKF: MALE [...] DESIRABLE: <130 MG/DL <110 MG/DL BORDERLINE-HIGH RISK: 130- 159 MG/DL 110-129 MG/DL HIGH RISK: >160 MG/DL >130 MG/DL *CHILDREN AND ADOLESCENTS REPRESENTS INDIVIDUALA AGED 2-19 YEARS EXCLUSIVE. Co2 24.7 mmol/L 22.0-29.0 [facility] ([facility] CHRONIC KIDNEY DISEASE STAGING PER NKF: MALE [...] DESIRABLE: <130 MG/DL <110 MG/DL BORDERLINE-HIGH RISK: 130- 159 MG/DL 110-129 MG/DL HIGH RISK: >160 MG/DL >130 MG/DL *CHILDREN AND ADOLESCENTS REPRESENTS INDIVIDUALA AGED 2-19 YEARS EXCLUSIVE. TP 6.6 g/dL 6.6-8.7 [facility] ([facility] CHRONIC KIDNEY DISEASE STAGING PER NKF: MALE [...] DESIRABLE: <130 MG/DL <110 MG/DL BORDERLINE-HIGH RISK: 130- 159 MG/DL 110-129 MG/DL HIGH RISK: >160 MG/DL >130 MG/DL *CHILDREN AND ADOLESCENTS REPRESENTS INDIVIDUALA AGED 2-19 YEARS EXCLUSIVE. Alb 4.0 g/dL 3.4-4.8 [facility] ([facility] CHRONIC KIDNEY DISEASE STAGING PER NKF: MALE [...] DESIRABLE: <130 MG/DL <110 MG/DL BORDERLINE-HIGH RISK: 130- 159 MG/DL 110-129 MG/DL HIGH RISK: >160 MG/DL >130 MG/DL *CHILDREN AND ADOLESCENTS REPRESENTS INDIVIDUALA AGED 2-19 YEARS EXCLUSIVE. A/G Ratio 1.5 CALC [facility] ([facility] CHRONIC KIDNEY DISEASE STAGING PER NKF: MALE [...] DESIRABLE: <130 MG/DL <110 MG/DL BORDERLINE-HIGH RISK: 130- 159 MG/DL 110-129 MG/DL HIGH RISK: >160 MG/DL >130 MG/DL *CHILDREN AND ADOLESCENTS REPRESENTS INDIVIDUALA AGED 2-19 YEARS EXCLUSIVE. Globulin 2.6 CALC [facility] ([facility] CHRONIC KIDNEY DISEASE STAGING PER NKF: MALE [...] DESIRABLE: <130 MG/DL <110 MG/DL BORDERLINE-HIGH RISK: 130- 159 MG/DL 110-129 MG/DL HIGH RISK: >160 MG/DL >130 MG/DL *CHILDREN AND ADOLESCENTS REPRESENTS INDIVIDUALA AGED 2-19 YEARS EXCLUSIVE. Alp 66.2 U/L 35-129 [facility] ([facility] CHRONIC KIDNEY DISEASE STAGING PER NKF: MALE [...] DESIRABLE: <130 MG/DL <110 MG/DL BORDERLINE-HIGH RISK: 130- 159 MG/DL 110-129 MG/DL HIGH RISK: >160 MG/DL >130 MG/DL *CHILDREN AND ADOLESCENTS REPRESENTS INDIVIDUALA AGED 2-19 YEARS EXCLUSIVE. Alt (SGPT) 28 U/L 0-41 [facility] ([facility] CHRONIC KIDNEY DISEASE STAGING PER NKF: MALE [...] DESIRABLE: <130 MG/DL <110 MG/DL BORDERLINE-HIGH RISK: 130- 159 MG/DL 110-129 MG/DL HIGH RISK: >160 MG/DL >130 MG/DL *CHILDREN AND ADOLESCENTS REPRESENTS INDIVIDUALA AGED 2-19 YEARS EXCLUSIVE. Ast (Sgot) 22 U/L 0-40 [facility] ([facility] CHRONIC KIDNEY DISEASE STAGING PER NKF: MALE [...] DESIRABLE: <130 MG/DL <110 MG/DL BORDERLINE-HIGH RISK: 130- 159 MG/DL 110-129 MG/DL HIGH RISK: >160 MG/DL >130 MG/DL *CHILDREN AND ADOLESCENTS REPRESENTS INDIVIDUALA AGED 2-19 YEARS EXCLUSIVE. Osmolality-Calculated 284.1 CALC [facility] ([facility] CHRONIC KIDNEY DISEASE STAGING PER NKF: MALE [...] DESIRABLE: <130 MG/DL <110 MG/DL BORDERLINE-HIGH RISK: 130- 159 MG/DL 110-129 MG/DL HIGH RISK: >160 MG/DL >130 MG/DL *CHILDREN AND ADOLESCENTS REPRESENTS INDIVIDUALA AGED 2-19 YEARS EXCLUSIVE. Tbili 0.33 mg/dL 0.0-1.2 [facility] ([facility] CHRONIC KIDNEY DISEASE STAGING PER NKF: MALE [...] DESIRABLE: <130 MG/DL <110 MG/DL BORDERLINE-HIGH RISK: 130- 159 MG/DL 110-129 MG/DL HIGH RISK: >160 MG/DL >130 MG/DL *CHILDREN AND ADOLESCENTS REPRESENTS INDIVIDUALA AGED 2-19 YEARS EXCLUSIVE. Anion Gap 15 mmol/L [facility] ([facility] CHRONIC KIDNEY DISEASE STAGING PER NKF: MALE [...] DESIRABLE: <130 MG/DL <110 MG/DL BORDERLINE-HIGH RISK: 130- 159 MG/DL 110-129 MG/DL HIGH RISK: >160 MG/DL >130 MG/DL *CHILDREN AND ADOLESCENTS REPRESENTS INDIVIDUALA AGED 2-19 YEARS EXCLUSIVE. eGFR Non-Afr. Israeli 39 # MEDENT ([facility] CHRONIC KIDNEY DISEASE STAGING PER NKF: MALE [...] DESIRABLE: <130 MG/DL <110 MG/DL BORDERLINE-HIGH RISK: 130- 159 MG/DL 110-129 MG/DL HIGH RISK: >160 MG/DL >130 MG/DL *CHILDREN AND ADOLESCENTS REPRESENTS INDIVIDUALA AGED 2-19 YEARS EXCLUSIVE. eGFR 45 # THOMAS ( [facility] CHRONIC KIDNEY DISEASE STAGING PER NKF: MALE [...] DESIRABLE: <130 MG/DL <110 MG/DL BORDERLINE-HIGH RISK: 130- 159 MG/DL 110-129 MG/DL HIGH RISK: >160 MG/DL >130 MG/DL *CHILDREN AND ADOLESCENTS REPRESENTS INDIVIDUALA AGED 2-19 YEARS EXCLUSIVE. ID Date Data Source [id number] 01/19/2021 08:48:00 AM EDT THOMAS ([facility] Name Value Range Interpretation Code Description Data Margarita rce(s) Supporting Document(s) Hemoglobin A1c/Hemoglobin.total in Blood 8.7 % 4.50-6.20 Above high normal [facility]OM[facility] ([facility] ID Date Data Source [id number] 10/13/2020 08:54:00 AM EST MEDENT ([facility] Name Value Range Interpretation Code Description Data Margarita rce(s) Supporting Document(s) Chol 171 mg/dL 0-200 [facility] ([facility] CHRONIC KIDNEY DISEASE STAGING PER NKF: MALE [...] DESIRABLE: <130 MG/DL <110 MG/DL BORDERLINE-HIGH RISK: 130- 159 MG/DL 110-129 MG/DL HIGH RISK: >160 MG/DL >130 MG/DL *CHILDREN AND ADOLESCENTS REPRESENTS INDIVIDUALA AGED 2-19 YEARS EXCLUSIVE. Trig 224 mg/dL 40-200 Above high normal [facility] ([facility] CHRONIC KIDNEY DISEASE STAGING PER NKF: MALE [...] DESIRABLE: <130 MG/DL <110 MG/DL BORDERLINE-HIGH RISK: 130- 159 MG/DL 110-129 MG/DL HIGH RISK: >160 MG/DL >130 MG/DL *CHILDREN AND ADOLESCENTS REPRESENTS INDIVIDUALA AGED 2-19 YEARS EXCLUSIVE. Cholesterol in HDL [Mass/volume] in Serum or Plasma 43 mg/dL 45-65 Below low normal [facility] ([facility] ) CHRONIC KIDNEY DISEASE STAGING PER NKF: MALE [...] DESIRABLE: <130 MG/DL <110 MG/DL BORDERLINE-HIGH RISK: 130- 159 MG/DL 110-129 MG/DL HIGH RISK: >160 MG/DL >130 MG/DL *CHILDREN AND ADOLESCENTS REPRESENTS INDIVIDUALA AGED 2-19 YEARS EXCLUSIVE. LDL_C 84 Calc 75-129 [facility] ([facility] CHRONIC KIDNEY DISEASE STAGING PER NKF: MALE [...] DESIRABLE: <130 MG/DL <110 MG/DL BORDERLINE-HIGH RISK: 130- 159 MG/DL 110-129 MG/DL HIGH RISK: >160 MG/DL >130 MG/DL *CHILDREN AND ADOLESCENTS REPRESENTS INDIVIDUALA AGED 2-19 YEARS EXCLUSIVE. Cho/HDL Ratio 4.0 CALC THOMAS ([facility] CHRONIC KIDNEY DISEASE STAGING PER NKF: MALE [...] DESIRABLE: <130 MG/DL <110 MG/DL BORDERLINE-HIGH RISK: 130- 159 MG/DL 110-129 MG/DL HIGH RISK: >160 MG/DL >130 MG/DL *CHILDREN AND ADOLESCENTS REPRESENTS INDIVIDUALA AGED 2-19 YEARS EXCLUSIVE. ID Date Data Source [id number] 10/13/2020 08:54:00 AM EST THOMAS ([facility] Name Value Range Interpretation Code Description Data Margarita rce(s) Supporting Document(s) Glu 211 mg/dL 70-110 Above high normal MEDENT ([facility] CHRONIC KIDNEY DISEASE STAGING PER NKF: MALE [...] DESIRABLE: <130 MG/DL <110 MG/DL BORDERLINE-HIGH RISK: 130- 159 MG/DL 110-129 MG/DL HIGH RISK: >160 MG/DL >130 MG/DL *CHILDREN AND ADOLESCENTS REPRESENTS INDIVIDUALA AGED 2-19 YEARS EXCLUSIVE. BUN 29 mg/dL 8-23 Above high normal MED[facility] ([facility] CHRONIC KIDNEY DISEASE STAGING PER NKF: MALE [...] DESIRABLE: <130 MG/DL <110 MG/DL BORDERLINE-HIGH RISK: 130- 159 MG/DL 110-129 MG/DL HIGH RISK: >160 MG/DL >130 MG/DL *CHILDREN AND ADOLESCENTS REPRESENTS INDIVIDUALA AGED 2-19 YEARS EXCLUSIVE. BUN/Creatinine Ratio 20.5 CALC MEDENT ([facility] CHRONIC KIDNEY DISEASE STAGING PER NKF: MALE [...] DESIRABLE: <130 MG/DL <110 MG/DL BORDERLINE-HIGH RISK: 130- 159 MG/DL 110-129 MG/DL HIGH RISK: >160 MG/DL >130 MG/DL *CHILDREN AND ADOLESCENTS REPRESENTS INDIVIDUALA AGED 2-19 YEARS EXCLUSIVE. Creat 1.4 mg/dL 0.5-1.0 Above high normal MEDENT ([facility] CHRONIC KIDNEY DISEASE STAGING PER NKF: MALE [...] DESIRABLE: <130 MG/DL <110 MG/DL BORDERLINE-HIGH RISK: 130- 159 MG/DL 110-129 MG/DL HIGH RISK: >160 MG/DL >130 MG/DL *CHILDREN AND ADOLESCENTS REPRESENTS INDIVIDUALA AGED 2-19 YEARS EXCLUSIVE. Na 138 mmol/L 136-145 [facility] ([facility] CHRONIC KIDNEY DISEASE STAGING PER NKF: MALE [...] DESIRABLE: <130 MG/DL <110 MG/DL BORDERLINE-HIGH RISK: 130- 159 MG/DL 110-129 MG/DL HIGH RISK: >160 MG/DL >130 MG/DL *CHILDREN AND ADOLESCENTS REPRESENTS INDIVIDUALA AGED 2-19 YEARS EXCLUSIVE. K 4.5 mmol/L 3.5-5.1 [facility] ([facility] CHRONIC KIDNEY DISEASE STAGING PER NKF: MALE [...] DESIRABLE: <130 MG/DL <110 MG/DL BORDERLINE-HIGH RISK: 130- 159 MG/DL 110-129 MG/DL HIGH RISK: >160 MG/DL >130 MG/DL *CHILDREN AND ADOLESCENTS REPRESENTS INDIVIDUALA AGED 2-19 YEARS EXCLUSIVE. CL 102.3 mmol/L 98.0-107.0 MEDENT ([facility] CHRONIC KIDNEY DISEASE STAGING PER NKF: MALE [...] DESIRABLE: <130 MG/DL <110 MG/DL BORDERLINE-HIGH RISK: 130- 159 MG/DL 110-129 MG/DL HIGH RISK: >160 MG/DL >130 MG/DL *CHILDREN AND ADOLESCENTS REPRESENTS INDIVIDUALA AGED 2-19 YEARS EXCLUSIVE. Co2 23.2 mmol/L 22.0-29.0 [facility] ([facility] CHRONIC KIDNEY DISEASE STAGING PER NKF: MALE [...] DESIRABLE: <130 MG/DL <110 MG/DL BORDERLINE-HIGH RISK: 130- 159 MG/DL 110-129 MG/DL HIGH RISK: >160 MG/DL >130 MG/DL *CHILDREN AND ADOLESCENTS REPRESENTS INDIVIDUALA AGED 2-19 YEARS EXCLUSIVE. CA 9.7 mg/dL 8.6-10.2 [facility] CHRONIC KIDNEY DISEASE STAGING PER NKF: MALE [...] DESIRABLE: <130 MG/DL <110 MG/DL BORDERLINE-HIGH RISK: 130- 159 MG/DL 110-129 MG/DL HIGH RISK: >160 MG/DL >130 MG/DL *CHILDREN AND ADOLESCENTS REPRESENTS INDIVIDUALA AGED 2-19 YEARS EXCLUSIVE. TP 6.1 g/dL 6.6-8.7 Below low normal MED[facility] ( [facility] CHRONIC KIDNEY DISEASE STAGING PER NKF: MALE [...] DESIRABLE: <130 MG/DL <110 MG/DL BORDERLINE-HIGH RISK: 130- 159 MG/DL 110-129 MG/DL HIGH RISK: >160 MG/DL >130 MG/DL *CHILDREN AND ADOLESCENTS REPRESENTS INDIVIDUALA AGED 2-19 YEARS EXCLUSIVE. Alb 3.9 g/dL 3.4-4.8 [facility] ([facility] CHRONIC KIDNEY DISEASE STAGING PER NKF: MALE [...] DESIRABLE: <130 MG/DL <110 MG/DL BORDERLINE-HIGH RISK: 130- 159 MG/DL 110-129 MG/DL HIGH RISK: >160 MG/DL >130 MG/DL *CHILDREN AND ADOLESCENTS REPRESENTS INDIVIDUALA AGED 2-19 YEARS EXCLUSIVE. A/G Ratio 1.8 CALC MED[facility] ([facility] CHRONIC KIDNEY DISEASE STAGING PER NKF: MALE [...] DESIRABLE: <130 MG/DL <110 MG/DL BORDERLINE-HIGH RISK: 130- 159 MG/DL 110-129 MG/DL HIGH RISK: >160 MG/DL >130 MG/DL *CHILDREN AND ADOLESCENTS REPRESENTS INDIVIDUALA AGED 2-19 YEARS EXCLUSIVE. Globulin 2.2 CALC [facility] ([facility] CHRONIC KIDNEY DISEASE STAGING PER NKF: MALE [...] DESIRABLE: <130 MG/DL <110 MG/DL BORDERLINE-HIGH RISK: 130- 159 MG/DL 110-129 MG/DL HIGH RISK: >160 MG/DL >130 MG/DL *CHILDREN AND ADOLESCENTS REPRESENTS INDIVIDUALA AGED 2-19 YEARS EXCLUSIVE. Alp 55.8 U/L 35-129 [facility] ([facility] CHRONIC KIDNEY DISEASE STAGING PER NKF: MALE [...] DESIRABLE: <130 MG/DL <110 MG/DL BORDERLINE-HIGH RISK: 130- 159 MG/DL 110-129 MG/DL HIGH RISK: >160 MG/DL >130 MG/DL *CHILDREN AND ADOLESCENTS REPRESENTS INDIVIDUALA AGED 2-19 YEARS EXCLUSIVE. Alt (SGPT) 20 U/L 0-41 [facility] ([facility] CHRONIC KIDNEY DISEASE STAGING PER NKF: MALE [...] DESIRABLE: <130 MG/DL <110 MG/DL BORDERLINE-HIGH RISK: 130- 159 MG/DL 110-129 MG/DL HIGH RISK: >160 MG/DL >130 MG/DL *CHILDREN AND ADOLESCENTS REPRESENTS INDIVIDUALA AGED 2-19 YEARS EXCLUSIVE. Tbili 0.24 mg/dL 0.0-1.2 [facility] ([facility] CHRONIC KIDNEY DISEASE STAGING PER NKF: MALE [...] DESIRABLE: <130 MG/DL <110 MG/DL BORDERLINE-HIGH RISK: 130- 159 MG/DL 110-129 MG/DL HIGH RISK: >160 MG/DL >130 MG/DL *CHILDREN AND ADOLESCENTS REPRESENTS INDIVIDUALA AGED 2-19 YEARS EXCLUSIVE. Ast (Sgot) 17 U/L 0-40 MED[facility] ([facility] CHRONIC KIDNEY DISEASE STAGING PER NKF: MALE [...] DESIRABLE: <130 MG/DL <110 MG/DL BORDERLINE-HIGH RISK: 130- 159 MG/DL 110-129 MG/DL HIGH RISK: >160 MG/DL >130 MG/DL *CHILDREN AND ADOLESCENTS REPRESENTS INDIVIDUALA AGED 2-19 YEARS EXCLUSIVE. Osmolality-Calculated 288.5 CALC MED ENT ([facility] CHRONIC KIDNEY DISEASE STAGING PER NKF: MALE [...] DESIRABLE: <130 MG/DL <110 MG/DL BORDERLINE-HIGH RISK: 130- 159 MG/DL 110-129 MG/DL HIGH RISK: >160 MG/DL >130 MG/DL *CHILDREN AND ADOLESCENTS REPRESENTS INDIVIDUALA AGED 2-19 YEARS EXCLUSIVE. eGFR 42 # MEDENT ( [facility] CKD-EPI Anion Gap 17 mmol/L [place] ([facility] CHRONIC KIDNEY DISEASE STAGING PER NKF: MALE [...] DESIRABLE: <130 MG/DL <110 MG/DL BORDERLINE-HIGH RISK: 130- 159 MG/DL 110-129 MG/DL HIGH RISK: >160 MG/DL >130 MG/DL *CHILDREN AND ADOLESCENTS REPRESENTS INDIVIDUALA AGED 2-19 YEARS EXCLUSIVE. eGFR Non-Afr. Israeli 36 # THOMAS ([facility] CKD-EPI ID Date Data Source [id number] 10/13/2020 08:54:00 AM EST THOMAS ([facility] Name Value Range Interpretation Code Description Data Margarita rce(s) Supporting Document(s) Hemoglobin A1c/Hemoglobin.total in Blood 7.8 % 4.50-6.20 Above high normal [place] ([facility] ID Date Data Source [id number] 07/13/2020 09:59:00 AM EDT MEDENT ([facility] Name Value Range Interpretation Code Description Data Margarita rce(s) Supporting Document(s) Hemoglobin A1c/Hemoglobin.total in Blood 7.7 % 4.50-6.20 Above high normal MED[facility] ([facility] ID Date Data Source [id number] 07/13/2020 09:59:00 AM EDT MEDENT ([facility] Name Value Range Interpretation Code Description Data Margarita rce(s) Supporting Document(s) Chol 163 mg/dL 0-200 MEDENT ([facility] CHRONIC KIDNEY DISEASE STAGING PER NKF: MALE [...] DESIRABLE: <130 MG/DL <110 MG/DL BORDERLINE-HIGH RISK: 130- 159 MG/DL 110-129 MG/DL HIGH RISK: >160 MG/DL >130 MG/DL *CHILDREN AND ADOLESCENTS REPRESENTS INDIVIDUALA AGED 2-19 YEARS EXCLUSIVE. Cholesterol in HDL [Mass/volume] in Serum or Plasma 41 mg/dL 45-65 Below low normal MEDENT ([facility] ) CHRONIC KIDNEY DISEASE STAGING PER NKF: MALE [...] DESIRABLE: <130 MG/DL <110 MG/DL BORDERLINE-HIGH RISK: 130- 159 MG/DL 110-129 MG/DL HIGH RISK: >160 MG/DL >130 MG/DL *CHILDREN AND ADOLESCENTS REPRESENTS INDIVIDUALA AGED 2-19 YEARS EXCLUSIVE. LDL_C 83 Calc 75-129 [facility] ([facility] CHRONIC KIDNEY DISEASE STAGING PER NKF: MALE [...] DESIRABLE: <130 MG/DL <110 MG/DL BORDERLINE-HIGH RISK: 130- 159 MG/DL 110-129 MG/DL HIGH RISK: >160 MG/DL >130 MG/DL *CHILDREN AND ADOLESCENTS REPRESENTS INDIVIDUALA AGED 2-19 YEARS EXCLUSIVE. Trig 200 mg/dL 40-200 [facility] ([facility] CHRONIC KIDNEY DISEASE STAGING PER NKF: MALE [...] DESIRABLE: <130 MG/DL <110 MG/DL BORDERLINE-HIGH RISK: 130- 159 MG/DL 110-129 MG/DL HIGH RISK: >160 MG/DL >130 MG/DL *CHILDREN AND ADOLESCENTS REPRESENTS INDIVIDUALA AGED 2-19 YEARS EXCLUSIVE. Cho/HDL Ratio 4.0 CALC [facility] CHRONIC KIDNEY DISEASE STAGING PER NKF: MALE [...] DESIRABLE: <130 MG/DL <110 MG/DL BORDERLINE-HIGH RISK: 130- 159 MG/DL 110-129 MG/DL HIGH RISK: >160 MG/DL >130 MG/DL *CHILDREN AND ADOLESCENTS REPRESENTS INDIVIDUALA AGED 2-19 YEARS EXCLUSIVE. ID Date Data Source [id number] 07/13/2020 09:59:00 AM EDT MEDENT ([facility] Name Value Range Interpretation Code Description Data Margarita rce(s) Supporting Document(s) BUN 24 mg/dL 8-23 Above high normal MED[facility] ([facility] CHRONIC KIDNEY DISEASE STAGING PER NKF: MALE [...] DESIRABLE: <130 MG/DL <110 MG/DL BORDERLINE-HIGH RISK: 130- 159 MG/DL 110-129 MG/DL HIGH RISK: >160 MG/DL >130 MG/DL *CHILDREN AND ADOLESCENTS REPRESENTS INDIVIDUALA AGED 2-19 YEARS EXCLUSIVE. Glu 178 mg/dL 70-110 Above high normal MEDENT ([facility] CHRONIC KIDNEY DISEASE STAGING PER NKF: MALE [...] DESIRABLE: <130 MG/DL <110 MG/DL BORDERLINE-HIGH RISK: 130- 159 MG/DL 110-129 MG/DL HIGH RISK: >160 MG/DL >130 MG/DL *CHILDREN AND ADOLESCENTS REPRESENTS INDIVIDUALA AGED 2-19 YEARS EXCLUSIVE. Na 138 mmol/L 136-145 MED[facility] ([facility] CHRONIC KIDNEY DISEASE STAGING PER NKF: MALE [...] DESIRABLE: <130 MG/DL <110 MG/DL BORDERLINE-HIGH RISK: 130- 159 MG/DL 110-129 MG/DL HIGH RISK: >160 MG/DL >130 MG/DL *CHILDREN AND ADOLESCENTS REPRESENTS INDIVIDUALA AGED 2-19 YEARS EXCLUSIVE. BUN/Creatinine Ratio 17.5 CALC MEDENT ([facility] CHRONIC KIDNEY DISEASE STAGING PER NKF: MALE [...] DESIRABLE: <130 MG/DL <110 MG/DL BORDERLINE-HIGH RISK: 130- 159 MG/DL 110-129 MG/DL HIGH RISK: >160 MG/DL >130 MG/DL *CHILDREN AND ADOLESCENTS REPRESENTS INDIVIDUALA AGED 2-19 YEARS EXCLUSIVE. Creat 1.4 mg/dL 0.5-1.0 Above high normal [facility] ([facility] CHRONIC KIDNEY DISEASE STAGING PER NKF: MALE [...] DESIRABLE: <130 MG/DL <110 MG/DL BORDERLINE-HIGH RISK: 130- 159 MG/DL 110-129 MG/DL HIGH RISK: >160 MG/DL >130 MG/DL *CHILDREN AND ADOLESCENTS REPRESENTS INDIVIDUALA AGED 2-19 YEARS EXCLUSIVE. CL 102.4 mmol/L 98.0-107.0 [facility] ([facility] CHRONIC KIDNEY DISEASE STAGING PER NKF: MALE [...] DESIRABLE: <130 MG/DL <110 MG/DL BORDERLINE-HIGH RISK: 130- 159 MG/DL 110-129 MG/DL HIGH RISK: >160 MG/DL >130 MG/DL *CHILDREN AND ADOLESCENTS REPRESENTS INDIVIDUALA AGED 2-19 YEARS EXCLUSIVE. K 4.5 mmol/L 3.5-5.1 MED[facility] ([facility] CHRONIC KIDNEY DISEASE STAGING PER NKF: MALE [...] DESIRABLE: <130 MG/DL <110 MG/DL BORDERLINE-HIGH RISK: 130- 159 MG/DL 110-129 MG/DL HIGH RISK: >160 MG/DL >130 MG/DL *CHILDREN AND ADOLESCENTS REPRESENTS INDIVIDUALA AGED 2-19 YEARS EXCLUSIVE. CA 9.9 mg/dL 8.6-10.2 [facility] CHRONIC KIDNEY DISEASE STAGING PER NKF: MALE [...] DESIRABLE: <130 MG/DL <110 MG/DL BORDERLINE-HIGH RISK: 130- 159 MG/DL 110-129 MG/DL HIGH RISK: >160 MG/DL >130 MG/DL *CHILDREN AND ADOLESCENTS REPRESENTS INDIVIDUALA AGED 2-19 YEARS EXCLUSIVE. Co2 23.2 mmol/L 22.0-29.0 MEDENT ([facility] CHRONIC KIDNEY DISEASE STAGING PER NKF: MALE [...] DESIRABLE: <130 MG/DL <110 MG/DL BORDERLINE-HIGH RISK: 130- 159 MG/DL 110-129 MG/DL HIGH RISK: >160 MG/DL >130 MG/DL *CHILDREN AND ADOLESCENTS REPRESENTS INDIVIDUALA AGED 2-19 YEARS EXCLUSIVE. TP 6.4 g/dL 6.6-8.7 Below low normal [facility] ( [facility] CHRONIC KIDNEY DISEASE STAGING PER NKF: MALE [...] DESIRABLE: <130 MG/DL <110 MG/DL BORDERLINE-HIGH RISK: 130- 159 MG/DL 110-129 MG/DL HIGH RISK: >160 MG/DL >130 MG/DL *CHILDREN AND ADOLESCENTS REPRESENTS INDIVIDUALA AGED 2-19 YEARS EXCLUSIVE. A/G Ratio 1.8 CALC [facility] ([facility] CHRONIC KIDNEY DISEASE STAGING PER NKF: MALE [...] DESIRABLE: <130 MG/DL <110 MG/DL BORDERLINE-HIGH RISK: 130- 159 MG/DL 110-129 MG/DL HIGH RISK: >160 MG/DL >130 MG/DL *CHILDREN AND ADOLESCENTS REPRESENTS INDIVIDUALA AGED 2-19 YEARS EXCLUSIVE. Alb 4.1 g/dL 3.4-4.8 [facility] ([facility] CHRONIC KIDNEY DISEASE STAGING PER NKF: MALE [...] DESIRABLE: <130 MG/DL <110 MG/DL BORDERLINE-HIGH RISK: 130- 159 MG/DL 110-129 MG/DL HIGH RISK: >160 MG/DL >130 MG/DL *CHILDREN AND ADOLESCENTS REPRESENTS INDIVIDUALA AGED 2-19 YEARS EXCLUSIVE. Alt (SGPT) 23 U/L 0-41 [facility] ([facility] CHRONIC KIDNEY DISEASE STAGING PER NKF: MALE [...] DESIRABLE: <130 MG/DL <110 MG/DL BORDERLINE-HIGH RISK: 130- 159 MG/DL 110-129 MG/DL HIGH RISK: >160 MG/DL >130 MG/DL *CHILDREN AND ADOLESCENTS REPRESENTS INDIVIDUALA AGED 2-19 YEARS EXCLUSIVE. Globulin 2.3 CALC [facility] ([facility] CHRONIC KIDNEY DISEASE STAGING PER NKF: MALE [...] DESIRABLE: <130 MG/DL <110 MG/DL BORDERLINE-HIGH RISK: 130- 159 MG/DL 110-129 MG/DL HIGH RISK: >160 MG/DL >130 MG/DL *CHILDREN AND ADOLESCENTS REPRESENTS INDIVIDUALA AGED 2-19 YEARS EXCLUSIVE. Alp 53.2 U/L 35-129 [facility] CHRONIC KIDNEY DISEASE STAGING PER NKF: MALE [...] DESIRABLE: <130 MG/DL <110 MG/DL BORDERLINE-HIGH RISK: 130- 159 MG/DL 110-129 MG/DL HIGH RISK: >160 MG/DL >130 MG/DL *CHILDREN AND ADOLESCENTS REPRESENTS INDIVIDUALA AGED 2-19 YEARS EXCLUSIVE. Ast (Sgot) 20 U/L 0-40 [facility] ([facility] CHRONIC KIDNEY DISEASE STAGING PER NKF: MALE [...] DESIRABLE: <130 MG/DL <110 MG/DL BORDERLINE-HIGH RISK: 130- 159 MG/DL 110-129 MG/DL HIGH RISK: >160 MG/DL >130 MG/DL *CHILDREN AND ADOLESCENTS REPRESENTS INDIVIDUALA AGED 2-19 YEARS EXCLUSIVE. Tbili 0.32 mg/dL 0.0-1.2 MED[facility] ([facility] CHRONIC KIDNEY DISEASE STAGING PER NKF: MALE [...] DESIRABLE: <130 MG/DL <110 MG/DL BORDERLINE-HIGH RISK: 130- 159 MG/DL 110-129 MG/DL HIGH RISK: >160 MG/DL >130 MG/DL *CHILDREN AND ADOLESCENTS REPRESENTS INDIVIDUALA AGED 2-19 YEARS EXCLUSIVE. Osmolality-Calculated 283.9 CALC MED ENT ([facility] CHRONIC KIDNEY DISEASE STAGING PER NKF: MALE [...] DESIRABLE: <130 MG/DL <110 MG/DL BORDERLINE-HIGH RISK: 130- 159 MG/DL 110-129 MG/DL HIGH RISK: >160 MG/DL >130 MG/DL *CHILDREN AND ADOLESCENTS REPRESENTS INDIVIDUALA AGED 2-19 YEARS EXCLUSIVE. eGFR 42 # [facility] ( [facility] CKD-EPI Anion Gap 17 mmol/L [facility] ([facility] CHRONIC KIDNEY DISEASE STAGING PER NKF: MALE [...] DESIRABLE: <130 MG/DL <110 MG/DL BORDERLINE-HIGH RISK: 130- 159 MG/DL 110-129 MG/DL HIGH RISK: >160 MG/DL >130 MG/DL *CHILDREN AND ADOLESCENTS REPRESENTS INDIVIDUALA AGED 2-19 YEARS EXCLUSIVE. eGFR Non-Afr. Israeli 36 # MEDENT ([facility] CKD-EPI Procedure Social History Code Duration Value Status Description Data Source(s ) Smoking 04/23/2021 12:00:00 AM EDT Patient has never smoked co mpleted Patient has never smoked MEDENT ([facility]) Smoking 11/17/2020 12:00:00 AM EST Patient has never smoked co mpleted Patient has never smoked MEDENT ([facility], ) Vital Signs ID Date Data Source UNK Name Value Range Interpretation Code Description Data Source(s) Systolic blood pressure 124 mm[Hg] 124 mm[Hg] M EDENT ([facility] Diastolic blood pressure 68 mm[Hg] 68 mm[Hg] MEDENT ([facility] Body temperature 97.5 [degF] 97.5 [degF] MEDENT ([facility] Heart rate 68 /min 68 /min MEDENT ([facility] Respiratory rate 18 /min 18 /min MEDENT ( [facility] Body height 62 [in_i] 62 [in_i] MEDENT ([facility] 5'2" Body weight 193.00 [lb_av] 193.00 [lb_av] MEDEN T ([facility] [place] body weight 110 [lb_av] 110 [lb_av] MEDEN T ([facility] Body mass index (BMI) [Ratio] 35.3 kg/m2 35.3 k g/m2 MEDENT ([facility] Oxygen saturation in Arterial blood by Pulse oximetry 96 % 96 % MEDENT ([facility] Body weight 85.277 kg 85.277 kg MEDENT ([facility], ) Systolic blood pressure 132 mm[Hg] 132 mm[Hg] M EDENT ([facility], ) Diastolic blood pressure 82 mm[Hg] 82 mm[Hg] MEDENT ([facility], ) Body height 61.75 [in_i] 61.75 [in_i] MEDENT ([facility]) 5'1.75" Body weight 188.00 [lb_av] 188.00 [lb_av] MEDEN T ([facility]) Body mass index (BMI) [Ratio] 34.7 kg/m2 34.7 k g/m2 MEDENT ([facility]) [place] body weight 105 [lb_av] 105 [lb_av] MEDEN T ([facility]) Body surface area Derived from formula 1.86 m2 1.86 [facility] Systolic blood pressure 149 mm[Hg] 149 mm[Hg] M EDENT ([facility]) Diastolic blood pressure 77 mm[Hg] 77 mm[Hg] MEDENT ([facility], [facility]) Heart rate 63 /min 63 /min MEDENT ([facility]) Respiratory rate 18 /min 18 /min MEDENT ( [facility]) Oxygen saturation in Arterial blood by Pulse oximetry 96 % 96 % MEDENT ([facility], [facility]) Body temperature 97.5 [degF] 97.5 [degF] MEDENT ([facility], [facility]) Body weight 188.00 [lb_av] 188.00 [lb_av] MEDEN T ([facility], [facility]) Body height 62 [in_i] 62 [in_i] MEDENT ([facility]) 5'2" Body mass index (BMI) [Ratio] 34.4 kg/m2 34.4 k g/m2 MEDENT ([facility], [facility]) Body mass index (BMI) [Ratio] 34.6 kg/m2 34.6 k g/m2 MEDENT ([facility] Oxygen saturation in Arterial blood by Pulse oximetry 96 % 96 % MEDENT ([facility] Diastolic blood pressure 80 mm[Hg] 80 mm[Hg] MEDENT ([facility] Body temperature 98.0 [degF] 98.0 [degF] MEDENT ([facility] Heart rate 70 /min 70 /min MED[facility] ([facility] Respiratory rate 16 /min 16 /min MEDENT ( [facility] Body height 62 [in_i] 62 [in_i] MEDENT ([facility] 5'2" [place] body weight 110 [lb_av] 110 [lb_av] MEDEN T ([facility] Body weight 189.00 [lb_av] 189.00 [lb_av] MEDEN T ([facility] Systolic blood pressure 124 mm[Hg] 124 mm[Hg] M EDENT ([facility] [place] body weight 110 [lb_av] 110 [lb_av] MEDEN T ([facility] Body temperature 97.9 [degF] 97.9 [degF] MEDENT ([facility] Oxygen saturation in Arterial blood by Pulse oximetry 93 % 93 % MED[facility] ([facility] Systolic blood pressure 122 mm[Hg] 122 mm[Hg] M EDENT ([facility] Diastolic blood pressure 82 mm[Hg] 82 mm[Hg] MEDENT ([facility] Heart rate 64 /min 64 /min MED[facility] ([facility] Respiratory rate 12 /min 12 /min MEDENT ( [facility] Body height 62 [in_i] 62 [in_i] MEDENT ([facility] 5'2" Body weight 187.00 [lb_av] 187.00 [lb_av] MEDEN T ([facility] Body mass index (BMI) [Ratio] 34.2 kg/m2 34.2 k g/m2 MEDENT ([facility] Body temperature 97.3 [degF] 97.3 [degF] MEDENT ([facility]) Body height 61.5 [in_i] 61.5 [in_i] MEDENT ([facility]) 5'1.50" Body weight 185.12 [lb_av] 185.12 [lb_av] MEDEN T ([facility]) Body mass index (BMI) [Ratio] 34.4 kg/m2 34.4 k g/m2 MEDENT ([facility]) Body temperature 98.1 [degF] 98.1 [degF] MEDENT ([facility] Systolic blood pressure 128 mm[Hg] 128 mm[Hg] M EDENT ([facility] Respiratory rate 12 /min 12 /min MEDENT ( [facility] Body height 62 [in_i] 62 [in_i] [facility] ([facility] 5'2" Heart rate 70 /min 70 /min MEDENT ([facility] Body weight 187.00 [lb_av] 187.00 [lb_av] MEDEN T ([facility] [place] body weight 110 [lb_av] 110 [lb_av] MEDEN T ([facility] Body mass index (BMI) [Ratio] 34.2 kg/m2 34.2 k g/m2 MEDENT ([facility] Oxygen saturation in Arterial blood by Pulse oximetry 92 % 92 % MEDENT ([facility] Diastolic blood pressure 78 mm[Hg] 78 mm[Hg] MEDENT ([facility] Diastolic blood pressure 80 mm[Hg] 80 mm[Hg] MEDENT ([facility] Systolic blood pressure 122 mm[Hg] 122 mm[Hg] M EDENT ([facility] Body temperature 98.4 [degF] 98.4 [degF] MEDENT ([facility] Heart rate 68 /min 68 /min MEDENT ([facility] Respiratory rate 16 /min 16 /min MEDENT ( [facility] Body height 62 [in_i] 62 [in_i] MEDENT ([facility] 5'2" Body weight 192.00 [lb_av] 192.00 [lb_av] MEDEN T ([facility] Body mass index (BMI) [Ratio] 35.1 kg/m2 35.1 k g/m2 MEDENT ([facility] Oxygen saturation in Arterial blood by Pulse oximetry 97 % 97 % MEDENT ([facility] [place] body weight 110 [lb_av] 110 [lb_av] MEDEN T ([facility] Body mass index (BMI) [Ratio] 36.0 kg/m2 36.0 k g/m2 MEDENT ([facility]) [place] body weight 105 [lb_av] 105 [lb_av] MEDEN T ([facility]) Body weight 88.452 kg 88.452 kg [facility] [employer]) Body surface area Derived from formula 1.89 m2 1.89 m2 [facility] ([facility]) Systolic blood pressure 122 mm[Hg] 122 mm[Hg] M [facility] ([facility]) Diastolic blood pressure 80 mm[Hg] 80 mm[Hg] [facility] ([facility]) Heart rate 66 /min 66 /min [facility] ([facility]) Oxygen saturation in Arterial blood by Pulse oximetry 95 % 95 % [facility] ([facility]) Body temperature 97.0 [degF] 97.0 [degF] [facility] ([facility]) Body height 61.75 [in_i] 61.75 [in_i] [facility] ([facility]) 5'1.75" Body weight 195.00 [lb_av] 195.00 [lb_av] MEDEN T ([facility]) Diastolic blood pressure 78 mm[Hg] 78 mm[Hg] [facility] ([facility] Systolic blood pressure 122 mm[Hg] 122 mm[Hg] M [facility] ([facility] Body temperature 97.9 [degF] 97.9 [degF] [facility] ([facility] Heart rate 66 /min 66 /min [facility] ([facility] Respiratory rate 18 /min 18 /min [facility] ( [facility] Body height 62 [in_i] 62 [in_i] [facility] ([facility] 5'2" Body weight 195.00 [lb_av] 195.00 [lb_av] MEDEN T ([facility] [place] body weight 110 [lb_av] 110 [lb_av] MEDEN T ([facility] Body mass index (BMI) [Ratio] 35.7 kg/m2 35.7 k g/m2 [facility] ([facility] Oxygen saturation in Arterial blood by Pulse oximetry 96 % 96 % [facility] ([facility] Respiratory rate 14 /min 14 /min [facility] ( [facility] Body height 62 [in_i] 62 [in_i] [facility] ([facility] 5'2" Body weight 193.00 [lb_av] 193.00 [lb_av] MEDEN T ([facility] [place] body weight 110 [lb_av] 110 [lb_av] MEDEN T ([facility] Body mass index (BMI) [Ratio] 35.3 kg/m2 35.3 k g/m2 [facility] ([facility] Diastolic blood pressure 74 mm[Hg] 74 mm[Hg] [facility] ([facility] Body temperature 98.6 [degF] 98.6 [degF] [facility] ([facility] Systolic blood pressure 124 mm[Hg] 124 mm[Hg] M EDENT ([facility] Oxygen saturation in Arterial blood by Pulse oximetry 96 % 96 % [facility] ([facility] Heart rate 70 /min 70 /min [facility] ([facility]
[2021-08-23] MEDS ORDERED: propofoL 200 MG/20 ML VIAL As Ordered ONE ×2 (07:39→07:49)
--- NOTE | 2021-08-23 07:56 | ROOR ---
Patient Name: Thi Mcdaniels Procedure Date: 08/23/2021 7:31 AM Date of : 1940 Age: 80 Room: [facility] Gender: Female Note Status: Finalized Procedure: Colonoscopy Indications: High risk colon cancer surveillance: Personal history of colonic polyps Providers: Jd Kilpatrick MD Referring MD: LIZZ AMANDA MD Requesting Provider: Medicines: Monitored Anesthesia Care Complications: No immediate complications. Procedure: Pre-Anesthesia Assessment: - The heart rate, respiratory rate, oxygen saturations, blood pressure, adequacy of pulmonary ventilation, and response to care were monitored throughout the procedure. The Colonoscope was introduced through the anus and advanced to the terminal ileum, with identification of the appendiceal orifice and IC valve. The colonoscopy was performed without difficulty. The patient tolerated the procedure well. The quality of the bowel preparation was good. Findings: The perianal and digital rectal examinations were normal. A diminutive polyp was found in the splenic flexure. The polyp was sessile. The polyp was removed with a cold snare. Resection and retrieval were complete. Mild sigmoid diverticulosis and small internal hemorrhoids. The exam was otherwise without abnormality on direct and retroflexion views. Impression: - One diminutive polyp at the splenic flexure, removed with a cold snare. Resected and retrieved. - Mild sigmoid diverticulosis and small internal hemorrhoids. - The examination was otherwise normal on direct and retroflexion views. Recommendation: - Repeat colonoscopy is not recommended for surveillance. Procedure Code(s): --- Professional --- 53448, Colonoscopy, flexible; with removal of tumor(s), polyp(s), or other lesion(s) by snare technique Diagnosis Code(s): --- Professional --- K63.5, Polyp of colon Z86.010, Personal history of colonic polyps CPT copyright 2019 [employer]. All rights reserved. The codes documented in this report are preliminary and upon racecar driver review may be revised to meet current compliance requirements. Jd Kilpatrick MD Jd Kilpatrick MD 08/23/2021 7:56:27 AM Electronically signed by Jd Kilpatrick MD Number of Addenda: 0 Note Initiated On: 08/23/2021 7:31 AM Estimated Blood Loss: Estimated blood loss: none.
[2021-08-23 08:20] VITALS: BP 137/66
== END 2021-08-23 13:48 | disposition home or self-care (01) ==
LOC: M OPP 06:38
PROVIDERS: ATTEND Internal Medicine Gastroenterology
DX: Z12.11 Encounter for screening for malignant neoplasm of colon (principal); Z86.010 Personal history of colon polyps; D12.3 Benign neoplasm of transverse colon; K64.8 Other hemorrhoids; Z79.84 Long term (current) use of oral hypoglycemic drugs; Z79.899 Other long term (current) drug therapy

== ENCOUNTER → 2021-10-06 | Outpatient (REF) | payer MEDICARE, OTHER ==
[~2021-10-06] MED LIST changes: -NS 1,000 ML IV ONE
== END ==
LOC: M LAB REF 17:15
PROVIDERS: ATTEND Nurse Practitioner Family
DX: E83.42 Hypomagnesemia (principal)

== ENCOUNTER → 2023-07-31 | Outpatient (CLI) | payer MEDICARE, OTHER ==
[~2023-07-31] MED LIST changes: -LISI-898 PO; +LISI5TAB11 PO; -SEMA3TAB PO; +SEMA3TAB4 PO
== END ==
LOC: M WHC 14:14
PROVIDERS: ATTEND Internal Medicine
DX: Z12.31 Encounter for screening mammogram for malignant neoplasm of breast (principal)

== ENCOUNTER → 2024-01-29 | Outpatient (REF) | payer MEDICARE, OTHER ==
[2024-01-29 18:42] LABS: HEMOGLOBIN A1c 7.1 % (4.0-6.0)
[2024-01-29 19:02] LABS: ALBUMIN 3.1 G/DL (3.2-5.2); BILIRUBIN,TOTAL 0.4 MG/DL (0.3-1.2); CALCIUM LEVEL 9.8 MG/DL (8.3-10.6); CHOLESTEROL RISK RATIO 3.79 (<5); CREATININE FOR GFR 1.1 MG/DL (0.55-1.30); GLOMERULAR FILTRATION RATE 50.7 (>32); HDL CHOLESTEROL 36.6 MG/DL (>40); NON-HDL-C 102.4 MG/DL; POTASSIUM SERUM 4.4 MMOL/L (3.5-5.1); TOTAL PROTEIN 6.5 G/DL (5.7-8.2)
== END ==
LOC: M LABWUC 16:51
PROVIDERS: ATTEND Internal Medicine
DX: E78.2 Mixed hyperlipidemia (principal); E11.9 Type 2 diabetes mellitus without complications

== ENCOUNTER → 2024-09-08 | Outpatient (CLI) | payer MEDICARE, OTHER ==
[2024-09-08 20:00] LABS: HEMOGLOBIN A1c 7.9 % (4.0-6.0)
[2024-09-08 20:08] LABS: ALBUMIN 3.3 G/DL (3.2-5.2); BILIRUBIN,TOTAL 0.4 MG/DL (0.3-1.2); CALCIUM LEVEL 10.2 MG/DL (8.3-10.6); CHOLESTEROL RISK RATIO 4.55 (<5); CREATININE FOR GFR 1.32 MG/DL (0.55-1.30); HDL CHOLESTEROL 37.1 MG/DL (>40); LDL CHOLESTEROL 89.7 MG/DL (<100); NON-HDL-C 131.9 MG/DL; POTASSIUM SERUM 4.7 MMOL/L (3.5-5.1); TOTAL PROTEIN 6.8 G/DL (5.7-8.2)
== END ==
LOC: M WUC 10:27
PROVIDERS: ATTEND Internal Medicine
DX: E78.2 Mixed hyperlipidemia (principal); E11.9 Type 2 diabetes mellitus without complications

== ENCOUNTER → 2024-12-23 | Outpatient (CLI) | payer MEDICARE, OTHER ==
[2024-12-23 19:36] LABS: ALBUMIN 3.5 G/DL (3.2-5.2); BILIRUBIN,TOTAL 0.4 MG/DL (0.3-1.2); CHOLESTEROL RISK RATIO 4.74 (<5); CREATININE FOR GFR 1.25 MG/DL (0.55-1.30); GLOMERULAR FILTRATION RATE 43.7 (>32); HDL CHOLESTEROL 36.7 MG/DL (>40); LDL CHOLESTEROL 78.5 MG/DL (<100); NON-HDL-C 137.3 MG/DL; POTASSIUM SERUM 4.2 MMOL/L (3.5-5.1); TOTAL PROTEIN 7.2 G/DL (5.7-8.2)
[2024-12-23 20:10] LABS: HEMOGLOBIN A1c 6.9 % (4.0-6.0)
== END ==
LOC: M WUC 14:08
PROVIDERS: ATTEND Internal Medicine
DX: E11.9 Type 2 diabetes mellitus without complications (principal); E78.2 Mixed hyperlipidemia

== ENCOUNTER → 2025-05-13 | Outpatient (REF) | payer MEDICARE, OTHER ==
[~2025-05-13] MED LIST changes: +GLIP-318 PO; -GLIP5TAB20 PO
[2025-05-13 19:32] LABS: ALT/SGPT 18.0 U/L (7.0-40); AST/SGOT 19.0 U/L (<34); CALCIUM LEVEL 9.8 MG/DL (8.3-10.6); CARBON DIOXIDE LEVEL 28.0 MMOL/L (20-31); CHLORIDE LEVEL 104.0 MMOL/L (98-107); CHOLESTEROL LEVEL 171.0 MG/DL (<200); CHOLESTEROL RISK RATIO 4.43 (<5); CREATININE FOR GFR 1.17 MG/DL (0.55-1.30); GLOMERULAR FILTRATION RATE 46.6 (>32); LDL CHOLESTEROL 95.0 MG/DL (<100); NON-HDL-C 132.4 MG/DL; POTASSIUM SERUM 4.3 MMOL/L (3.5-5.1); SODIUM LEVEL 142.0 MMOL/L (136-145); TRIGLYCERIDES LEVEL 187.0 MG/DL (<150)
[2025-05-13 19:43] LABS: ESTIMATED AVERAGE GLUCOSE 148.0 MG/DL (60-110)
== END ==
LOC: M LAB REF 18:48
PROVIDERS: ATTEND Internal Medicine
DX: E78.2 Mixed hyperlipidemia (principal); E11.9 Type 2 diabetes mellitus without complications

== ENCOUNTER → 2025-06-24 | Outpatient (CLI) | payer MEDICARE, OTHER | LOC: M WHC 11:24 | PROVIDERS: ATTEND Nurse Practitioner Family | DX: N18.31 Chronic kidney disease, stage 3a (principal) ==

== ENCOUNTER → 2025-07-17 | Outpatient (CLI) | payer MEDICARE, OTHER | LOC: M WHC 13:07 | PROVIDERS: ATTEND Internal Medicine | DX: Z12.31 Encounter for screening mammogram for malignant neoplasm of breast (principal); R92.313 Mammographic fatty tissue density, bilateral breasts ==

== ENCOUNTER → 2025-09-24 | Outpatient (CLI) | payer MEDICARE, OTHER ==
[2025-09-24 18:42] LABS: ALT/SGPT 19.0 U/L (7.0-40); AST/SGOT 18.0 U/L (<34); CALCIUM LEVEL 9.5 MG/DL (8.3-10.6); CARBON DIOXIDE LEVEL 30.0 MMOL/L (20-31); CHLORIDE LEVEL 104.0 MMOL/L (98-107); CHOLESTEROL LEVEL 162.0 MG/DL (<200); CHOLESTEROL RISK RATIO 3.95 (<5); CREATININE FOR GFR 1.13 MG/DL (0.55-1.30); GLOMERULAR FILTRATION RATE 48.3 (>32); LDL CHOLESTEROL 84.6 MG/DL (<100); NON-HDL-C 121.0 MG/DL; POTASSIUM SERUM 4.4 MMOL/L (3.5-5.1); SODIUM LEVEL 142.0 MMOL/L (136-145); TRIGLYCERIDES LEVEL 182.0 MG/DL (<150)
[2025-09-24 19:46] LABS: ESTIMATED AVERAGE GLUCOSE 151.0 MG/DL (60-110)
== END ==
LOC: M WUC 13:36
PROVIDERS: ATTEND Internal Medicine
DX: E78.2 Mixed hyperlipidemia (principal); E11.9 Type 2 diabetes mellitus without complications